=== PATIENT | female | born 1995 | race Caucasian/White ===

== ENCOUNTER → 2023-07-30 | Outpatient (CLI) | payer OTHER, SELFPAY ==
[2023-07-30 17:49] LABS: hCG Titer Quant., Serum 2485 mIU/mL (1-3)
== END | disposition home or self-care (01) ==
LOC: LAB 16:53
PROVIDERS: PCP Nurse Practitioner Family; Referring Provider Registered Nurse; Visit Provider Registered Nurse
DX: O26.859 Spotting complicating pregnancy, unspecified trimester (principal); Z3A.00 Weeks of gestation of pregnancy not specified
CPT/HCPCS: 36415; 84702; 86850; 86900; 86901

== ENCOUNTER → 2023-08-01 | Outpatient (CLI) | payer OTHER, SELFPAY ==
[2023-08-01 18:32] LABS: hCG Titer Quant., Serum 3249 mIU/mL (1-3)
== END | disposition home or self-care (01) ==
LOC: LAB 16:53
PROVIDERS: PCP Nurse Practitioner Family; Referring Provider Registered Nurse; Visit Provider Registered Nurse
DX: O26.859 Spotting complicating pregnancy, unspecified trimester (principal); Z3A.00 Weeks of gestation of pregnancy not specified
CPT/HCPCS: 36415; 84702

== ENCOUNTER → 2023-08-02 | Outpatient (CLI) | payer OTHER, SELFPAY ==
--- NOTE | 2023-08-02 12:16 | US_ITS ---
STUDY: FIRST TRIMESTER OBSTETRICAL ULTRASOUND REASON FOR EXAM: Female, 27 years old pelvic pain LMP: June 18, 2023. TECHNIQUE: Transvaginal TECHNICAL QUALITY: Adequate. PRIOR ULTRASOUND: None. FINDINGS: There is visualization of a single gestational sac in the left lateral aspect of the superior endometrium in the intrauterine position. The mean sac diameter (MSD) measures 6 mm, indicating an estimated gestational age (EGA) of 5 weeks, 2 days. The gestational sac shape is within normal limits. There is a visualized yolk sac. The yolk sac measures 3 mm. The placenta is non-visualized. There is no demonstrated embryo ( pole). The estimated gestation age (EGA) by LMP is 6 weeks, 3 days. The estimated date of delivery (RONNIE) by LMP is March 24, 2024. The estimated gestation age (EGA) by US is 5 weeks, 2 days. The estimated date of delivery (RONNIE) by US is April 01, 2024. The uterus measures 8.5 cm x 5.4 cm x 4.1 cm. There is no demonstrated uterine fibroid. The cervix is closed. The right ovary measures 3.6 cm x 3.2 cm x 2.9 cm.. A corpus luteum cyst is seen measuring 1.57 x 1.77 x 1.6 cm. There is no visualized right adnexal mass or complex lesion. The left ovary was not visualized. There is no fluid in the cul de sac. US/Transvaginal w/Preg US IMPRESSION: Intrauterine gestational sac corresponding to 5 weeks and 2 days. No pole is seen at this time. Sonographic follow-up as well as serial beta hCG follow-up recommended. Small right corpus luteum cyst. Electronically Signed: Rip Mireles MD at 14:00 EST ,
== END | disposition home or self-care (01) ==
LOC: US 12:15
PROVIDERS: PCP Nurse Practitioner Family; Referring Provider Registered Nurse; Visit Provider Registered Nurse
DX: O26.859 Spotting complicating pregnancy, unspecified trimester (principal); R10.2 Pelvic and perineal pain; Z3A.00 Weeks of gestation of pregnancy not specified
CPT/HCPCS: 76817

== ENCOUNTER → 2023-08-03 | Outpatient (CLI) | payer OTHER, SELFPAY ==
[2023-08-03 17:52] LABS: hCG Titer Quant., Serum 5000 mIU/mL (1-3)
== END | disposition home or self-care (01) ==
LOC: LAB 15:33
PROVIDERS: PCP Nurse Practitioner Family; Referring Provider Registered Nurse; Visit Provider Registered Nurse
DX: O26.859 Spotting complicating pregnancy, unspecified trimester (principal); Z3A.00 Weeks of gestation of pregnancy not specified
CPT/HCPCS: 36415; 84702; 86850; 86900; 86901

== ENCOUNTER 2023-08-05 15:28 | Outpatient (CLI) | payer OTHER, SELFPAY ==
[2023-08-05 16:48] LABS: hCG Titer Quant., Serum 7641 mIU/mL (1-3)
== END 2023-08-05 23:59 | disposition home or self-care (01) ==
LOC: LAB 15:30
PROVIDERS: PCP Nurse Practitioner Family; Visit Provider Registered Nurse
DX: O26.859 Spotting complicating pregnancy, unspecified trimester (principal); Z3A.00 Weeks of gestation of pregnancy not specified
CPT/HCPCS: 36415; 84702

== ENCOUNTER → 2023-08-15 | Outpatient (CLI) | payer OTHER, SELFPAY ==
[2023-08-18 06:08] LABS: Chlamydia By Nucleic Acid AMP Negative (Negative); Gonococcus By Nucleic Acid AMP Negative (Negative)
== END | disposition home or self-care (01) ==
LOC: LABSPEC 15:55
PROVIDERS: PCP Nurse Practitioner Family; Referring Provider Registered Nurse; Visit Provider Registered Nurse
DX: Z34.90 Encounter for supervision of normal pregnancy, unspecified, unspecified trimester (principal)
CPT/HCPCS: 87086; 87088; 87491; 87591

== ENCOUNTER → 2023-09-04 | Outpatient (CLI) | payer OTHER, SELFPAY ==
--- OUTSIDE RECORDS SUMMARY | 2023-09-04 18:11 | XMS RPT_ITS | CCD ---
Author Name Unknown Address [id number] [place] [address] Organization [facility] Care Team Providers Care Plastics Engineer Name Role Phone Jeanna Pang [facility]ending [facility] Unavailab Jeanna Rodriguez Admitting Unavailable Missael Gonzales Attending Unavailable [facility] January Primary Care Unavailab Missael Whalen Admitting Unavailable Missael Gonzales Attending Unavailable [facility] January [facility] Unavailab Missael Whalen Admitting Unavailable [facility] January [facility] Care Unavailab le [facility] January Admitting Unavailab josey [facility] Shari Primary Care Provider [phone] Seb Wild Unavailable Unavailable Jeanna Page Unavailable Unavailable [place] Seb Unavailable Unavailable Herman Shaffer Unavailable Unavailable Lawrence Cunha Unavailable Unavailable Seb Wild Unavailable Unavailable [facility] Provider BRETT BURGOS JR. Attending Unavailable [facility] Primary Care Unavailab BRETT Askew JR. Attending Unavailable [facility] Primary Care Unavailab Zach Esquivel MD Unavailable Unavailable Primary Care Provider Unavailabl e Junito [facility] Primary Care Provider Beverley Phillip K Unavailable Beverley Phillip Unavailable Unavailable Yoav, Makayla Unavailable Unavailable Caleb Hoff Unavailable Unavailable [place] ENGRAVING PLATE MAKER.SEASONING SPRAYER, Seb Primary Care Provider JENNIFER PRYOR Attending Unavailable HARPSTER, SEB Primary Care Unavailable Phillip ENGRAVING PLATE MAKER-SEASONING SPRAYER, Beverley K Unavailable Patrick ENGRAVING PLATE MAKER-SEASONING SPRAYER, Lexie D Primary Care Provider [phone] Patrick, Ms. Lexie Gabby Primary Care Unavailab le Patrick, Ms. Lexie Gabby Attending Unavailab le Patrick, Ms. Lexie Gabby Referring Unavailab le Phillip, Ms. Beverley Gómez Primary Care Unavailable Yoav, Makayla Attending Unavailable Phillip, Ms. Beverley Gómez Primary Care Unavailable Yoav, Makayla Attending Unavailable Patrick, Ms. Lexie Gabby Primary Care Unavailab le Nguyen, Ms. Lexie Gabby Attending Unavailab le Nguyen, Ms. Lexie Gabby Referring Unavailab le Chris, Dr. Barrett Olson Attending Unavaila ble [place], Ms. Seb Shari Primary Care Unava ilable Chris, Dr. Barrett Olson Attending Unavaila ble [place], Ms. Seb Shari Primary Care Unava ilable Luis Eduardo, Dr. Caleb Lemos Attending Unavail able Phillip, Ms. Beverley Vidaly Primary Care Unavailable Luis Eduardo, Dr. Caleb Lemos Attending Unavail able Kenji, Ms. Beverley Dalia Primary Care Unavailable Kenji, Ms. Beverley Dalia Primary Care Unavailable Luis Eduardo, Dr. Caleb Lemos Attending Unavail able Kenji, Ms. Beverley Dalia Primary Care Unavailable Luis Eduardo, Dr. Caleb Lemos Attending Unavail able Kenji, Ms. Beverley Dalia Primary Care Unavailable Dr. Caleb Hoff Attending Unavail able Kenji, Ms. Beverley Dalia Primary Care Unavailable Dr. Caleb Hoff Attending Unavail able Kenji, Ms. Beverley Dalia Primary Care Unavailable Luis Eduardo, Dr. Caleb Lemos Attending Unavail able Kenji, Ms. Beverley Dalia Primary Care Unavailable Luis Eduardo, Dr. Caleb Lemos Attending Unavail able Chris, Dr. Barrett Olson Attending Unavaila ble [place], Ms. Seb Shari Primary Care Unava ilable Phillip, Ms. Beverley Dalia Primary Care Unavailable Luis Eduardo, Dr. Caleb Lemos Attending Unavail able Chris, Dr. Barrett Olson Attending Unavaila ble [place], Ms. Seb Shari Primary Care Unava ilable Luis Eduardo, Dr. Caleb Lemos Attending Unavail able Phillip, Ms. Beverley Dalia Primary Care Unavailable Luis Eduardo, Dr. Caleb Lemos Attending Unavail able Phillip, Ms. Beverley Dalia Primary Care Unavailable Luis Eduardo, Dr. Caleb Lemos Attending Unavail able Phillip, Ms. Beverley Dalia Primary Care Unavailable Luis Eduardo, Dr. Caleb Lemos Attending Unavail able Phillip, Ms. Beverley Dalia Primary Care Unavailable Phillip, Ms. Beverley Dalia Primary Care Unavailable Luis Eduardo, Dr. Caleb Lemos Attending Unavail able Chris, Dr. Barrett Olson Attending Unavaila ble [place], Ms. Seb Shari Primary Care Unava ilable Patrick, Ms. Lexie Gabby Primary Care Unavailab josey Purcell, Dr. Paramjit Reynoso Attending Unavail able Phillip, Ms. Beverley Dalia Primary Care Unavailable Eric, Ms. Jennifer Moreau Attending Unava ilable Phillip, Ms. Beverley Dalia Primary Care Unavailable Luis Eduardo, Dr. Caleb Lemos Attending Unavail able Phillip, Ms. Beverley Dalia Primary Care Unavailable Luis Eduardo, Dr. Caleb Lemos Attending Unavail able Luis Eduardo, Dr. Caleb Lemos Attending Unavail able Phillip, Ms. Beverley Dalia Primary Care Unavailable Phillip, Ms. Beverley Dalia Primary Care Unavailable Luis Eduardo, Dr. Caleb Lemos Attending Unavail able Phillip, Ms. Beverley Dalia Primary Care Unavailable Luis Eduardo, Dr. Caleb Lemos Attending Unavail able Phillip, Ms. Beverley Dalia Primary Care Unavailable Luis Eduardo, Dr. Caleb Lemos Attending Unavail able Luis Eduardo, Dr. Caleb Lemos Attending Unavail able Phillip, Ms. Beverley Dalia Primary Care Unavailable Chris, Dr. Barrett Olson Attending Unavaila ble Phillip, Ms. Beverley Dalia Primary Care Unavailable Phillip, Ms. Beverley Dalia Primary Care Unavailable Luis Eduardo, Dr. Caleb Lemos Attending Unavail able Kenji, Ms. Beverley Dalia Primary Care Unavailable Luis Eduardo, Dr. Caleb Lemos Attending Unavail able Luis Eduardo, Dr. Caleb Lemos Attending Unavail able Phillip, Ms. Beverley Dalia Primary Care Unavailable Chris, Dr. Barrett Olson Attending Unavaila ble [place], Ms. Seb Shari Primary Care Unava ilable Patrick, Ms. Lexie Gabby Primary Care Unavailab le Patrick, Ms. Lexie Gabby Referring Unavailab josey Patrick, Ms. Lexie Pierre Attending Unavailab le Lexie Nguyen Unavailable Lexie Simons Unavailable LEXIE NGUYEN Attending Unavailable PATRICK, LEXIE Patrick Primary Care Unavailable NGUYEN, LEXIE D Attending Unavailable PATRICK LEXIE Patrick Primary Care Unavailable LEXIE NGUYEN Attending Unavailable LEXIE NGUYEN Primary Care Unavailable LEXIE NGUYEN Attending Unavailable LEXIE NGUYEN Primary Care Unavailable LEXIE NGUYEN Attending Unavailable PATRICK LEXIE Patrick Primary Care Unavailable NGUYEN, LEXIE D Primary Care Unavailable NGUYEN, LEXIE D Primary Care Unavailable NGUYEN, LEXIE D Primary Care Unavailable NGUYEN, LEXIE D Primary Care Unavailable LEXIE NGUYEN Primary Care Unavailable Allergies Allergy Classification Reported Allergen(s) Allergy Type Date of Onset Reaction(s) Facility (1 source) PLANT POLLENS; Translations: [PLANT POLLENS] allergy to substance hay fever [facility] Work Phone: Medications Current Medications Medication Drug Class(es) Dates Sig (Normalized) Sig (Original) [id number] 200 actuat albuterol 0.09 mg/actuat metered dose inhaler (20 sources) beta2-Adrenergic Agonist Start: 05-07-2021 End: 05-07-2022 albuterol 90 mcg/actuation inhaler as needed . 0 05/07/2021 05/07/2022 Active Completed/Discontinued Medications Medication Drug Class(es) Dates Sig (Normalized) Sig (Original) acetaminophen 325 mg / oxyCODONE hydrochloride 5 mg oral tablet (6 sources) Opioid Agonist Start: 03-03-2021 take 1 tablet by mouth every six hours as needed for pain oxyCODONE-Acetami nophen 5-325 MG Oral Tablet TAKE 1 TABLET EVERY 6 HOURS NEEDED FOR PAIN. Quantity: 24 Refills: 0 Ordered: 03-Mar-2021 Tiffanie Cope Start : 03-Mar-2021 Active Problems Active Problems Problem Classification Problem Date Documented Da te Episodic/Chronic Asthma (8 sources) Mild intermittent asthma; Translations: [Mild intermittent asthma, uncomplicated] Onset: 09-22-2022 01-10-2023 Chronic Complications of surgical procedures or medical care (20 sources) Wound inflammation; Translations: [Other postoperative infection] Episodic Joint disorders and dislocations; trauma-related (20 sources) Snapping scapula; Translations: [Other disorders of bone and cartilage] Onset: 06-08-2021 06-08-2021 Chronic Mycoses (4 sources) Candidiasis of mouth; Translations: [Candidiasis of mouth] Episodic Noninfectious gastroenteritis (5 sources) Acute gastroenteritis; Translations: [Noninfective gastroenteritis and colitis, unspecified] Onset: 06-05-2023 06-05-2023 Episodic Other bone disease and musculoskeletal deformities (4 sources) Snapping scapula; 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] Episodic Other bone disease and musculoskeletal deformities (2 sources) Other specified disorders of bone, shoulder; Translations: [Other specified disorders of bone, shoulder] Onset: 07-13-2023 Episodic Other connective tissue disease (20 sources) Tendinitis of right rotator cuff; Translations: [Disorders of bursae and tendons in shoulder region, unspecified] Episodic Other gastrointestinal disorders (4 sources) Diarrhea; Translations: [Diarrhea, unspecified] Onset: 06-05-2023 06-05-2023 Episodic Other gastrointestinal disorders (4 sources) Diarrhea, unspecified; Translations: [Diarrhea, unspecified] Onset: 06-05-2023 Episodic Other lower respiratory disease (20 sources) Chronic cough; Translations: [Cough] Episodic Other lower respiratory disease (4 sources) Cough; Translations: [Cough] 09-22-2022 Episodic Past or Other Problems Problem Classification Problem Date Documented Date Episodic/Chronic Administrative/social admission (20 sources) Follow-up status; Translations: [Other specified counseling] Onset: 01-10-2023 Resolved: 01-17-2023 01-17-2023 Episodic Anxiety disorders (20 sources) Moderate anxiety; Translations: [Anxiety state, unspecified] Onset: 01-09-2023 Resolved: 01-10-2023 01-10-2023 Chronic Mood disorders (20 sources) Mild depression; Translations: [Depressive disorder, not elsewhere classified] Onset: 01-09-2023 Resolved: 01-10-2023 01-10-2023 Chronic Nausea and vomiting (1 source) Nausea; Translations: [Nausea] Onset: 09-22-2022 Episodic Other aftercare (2 sources) Encounter for removal of sutures; Translations: [Encounter for removal of sutures] Onset: 09-28-2022 Episodic Other connective tissue disease (20 sources) Scapulothoracic bursitis of right shoulder; Translations: [Disorders of bursae and tendons in shoulder region, unspecified] Onset: 01-09-2023 01-09-2023 Episodic Other connective tissue disease (3 sources) Tendinitis of right rotator cuff; Translations: [Rotator cuff tendonitis, right] Other connective tissue disease (2 sources) Scapulothoracic bursitis of right shoulder; Translations: [Scapulothoracic bursitis of right shoulder] Other lower respiratory disease (20 sources) Nodule of lung; Translations: [Solitary pulmonary nodule] Onset: 01-09-2023 02-21-2023 Episodic Results Test Name Value Interpretation Reference Range Facil ity Vital Signs Date Time Vital Sign Value Performing Clinician Facility 06-07-2023 09:09-0400 Body height 154.9 cm German Olivares APRNeHi Car Rental Work Phone: [facility] 06-07-2023 09:09-0400 Body mass index (BMI) [Ratio] 27.44 kg/m2 German Olivares APRN-SEASONING SPRAYER Work Phone: [facility] 06-07-2023 09:09-0400 Body temperature 98.2 [degF] German Olivares APRN-SEASONING SPRAYER Work Phone: [facility] 06-07-2023 09:09-0400 Body weight 65.86 kg German Olivares APRN-SEASONING SPRAYER Work Phone: [facility] 06-07-2023 09:09-0400 Diastolic blood pressure 75 mm[Hg] German Olivares APRN-SEASONING SPRAYER Work Phone: [facility] 06-07-2023 09:09-0400 Heart rate 96 /min German Olivares APRN-SEASONING SPRAYER Work Phone: [facility] 06-07-2023 09:09-0400 Respiratory rate 16 /min German Olivares APRN-SEASONING SPRAYER Work Phone: [facility] 06-07-2023 09:09-0400 SaO2% (BldA) [Mass fraction] 98 % German Olivares ENGRAVING PLATE MAKER-SEASONING SPRAYER Work Phone: [facility] 06-07-2023 09:09-0400 Systolic blood pressure 107 mm[Hg] German Olivares ENGRAVING PLATE MAKER-SEASONING SPRAYER Work Phone: [facility] 02-21-2023 10:23-0400 Body height 154.9 cm Lexie Nguyen ENGRAVING PLATE MAKER-SEASONING SPRAYER Work Phone: [facility] 02-21-2023 10:23-0400 Body mass index (BMI) [Ratio] 28.34 kg/m2 Lexie Nguyen ENGRAVING PLATE MAKER-SEASONING SPRAYER Work Phone: [facility] 02-21-2023 10:23-0400 Body weight 68.04 kg Lexie Nguyen ENGRAVING PLATE MAKER-SEASONING SPRAYER Work Phone: [facility] 02-21-2023 10:23-0400 Diastolic blood pressure 74 mm[Hg] Lexie Nguyen ENGRAVING PLATE MAKER-SEASONING SPRAYER Work Phone: [facility] 02-21-2023 10:23-0400 Heart rate 70 /min Lexie Nguyen ENGRAVING PLATE MAKER-SEASONING SPRAYER Work Phone: [facility] 02-21-2023 10:23-0400 Systolic blood pressure 106 mm[Hg] Lexie Nguyen ENGRAVING PLATE MAKER-SEASONING SPRAYER Work Phone: [facility] 06-16-2022 08:06-0400 Body height 154.9 cm Jennifer Pryor MD Work Phone: [facility] 06-16-2022 08:06-0400 Body weight 113.67 kg Jennifer Pryor MD Work Phone: [facility] 06-16-2022 08:06-0400 Diastolic blood pressure 74 mm[Hg] Jennifer Pryor MD Work Phone: [facility] 06-16-2022 08:06-0400 Heart rate 85 /min Jennifer Pryor MD Work Phone: [facility] 06-16-2022 08:06-0400 Respiratory rate 12 /min Jennifer Pryor MD Work Phone: [facility] 06-16-2022 08:06-0400 SaO2% (BldA) [Mass fraction] 100 % Jennifer Pryor MD Work Phone: [facility] 06-16-2022 08:06-0400 Systolic blood pressure 106 mm[Hg] Jennifer Pryor MD Work Phone: [facility] 03-03-2022 13:44-0400 Body height 154.94 cm Seb Wild Work Phone: [facility] 205 DO Work Phone: 03-03-2022 13:44-0400 Body mass index (BMI) [Ratio] 28.91 kg/m2 Seb Wild Work Phone: [facility] 205 DO Work Phone: 03-03-2022 13:44-0400 Body surface area Derived from formula 1.69 m2 Seb Wild Work Phone: [facility] 205 DO Work Phone: 03-03-2022 13:44-0400 Body weight 69.4 kg Seb Wild Work Phone: [facility] 205 DO Work Phone: 03-03-2022 13:44-0400 Diastolic blood pressure 68 mm[Hg] Seb Wild Work Phone: [facility] 205 DO Work Phone: 03-03-2022 13:44-0400 Heart rate 80 /min Seb Wild Work Phone: [facility] 205 DO Work Phone: 03-03-2022 13:44-0400 Systolic blood pressure 102 mm[Hg] Seb Wild Work Phone: [facility] 205 DO Work Phone: 01-25-2022 15:29-0400 Body height 154.94 cm Seb Wild Work Phone: [facility] Work Phone: 01-25-2022 15:29-0400 Body mass index (BMI) [Ratio] 28.24 kg/m2 Seb Wild Work Phone: [facility] Work Phone: 01-25-2022 15:29-0400 Body surface area Derived from formula 1.67 m2 Seb Wild Work Phone: [facility] Work Phone: 01-25-2022 15:29-0400 Body weight 67.79 kg Seb Wild Work Phone: [facility] Work Phone: 01-25-2022 15:29-0400 Diastolic blood pressure 66 mm[Hg] Seb Wild Work Phone: [facility] Work Phone: 01-25-2022 15:29-0400 Heart rate 72 /min Seb Wild Work Phone: [facility] Work Phone: 01-25-2022 15:29-0400 SaO2% (BldA) [Mass fraction] 100 % Seb Wild Work Phone: [facility] Work Phone: 01-25-2022 15:29-0400 Systolic blood pressure 90 mm[Hg] Seb Wild Work Phone: [facility] Work Phone: 06-27-2021 15:37-0400 Body height 154.94 cm Seb Wild Work Phone: [facility] Work Phone: 06-27-2021 15:37-0400 Body mass index (BMI) [Ratio] 29.31 kg/m2 Seb Wild Work Phone: [facility] Work Phone: 06-27-2021 15:37-0400 Body surface area Derived from formula 1.7 m2 Seb Wild Work Phone: [facility] Work Phone: 06-27-2021 15:37-0400 Body temperature 98.4 [degF] Seb Wild Work Phone: [facility] Work Phone: 06-27-2021 15:37-0400 Body weight 70.37 kg Seb Wild Work Phone: [facility] Work Phone: 06-27-2021 15:37-0400 Diastolic blood pressure 60 mm[Hg] Seb Wild Work Phone: [facility] Work Phone: 06-27-2021 15:37-0400 Heart rate 77 /min Seb Wild Work Phone: [facility] Work Phone: 06-27-2021 15:37-0400 SaO2% (BldA) [Mass fraction] 99 % Seb Wild Work Phone: [facility] Work Phone: 06-27-2021 15:37-0400 Systolic blood pressure 108 mm[Hg] Seb Ericka Wild Work Phone: [facility] Work Phone: 05-20-2021 09:46-0400 Body temperature 97.2 [degF] Brett Leo Jr., DPM Work Phone: [facility] 05-20-2021 09:46-0400 Diastolic blood pressure 63 mm[Hg] Brett Leo Jr., DPM Work Phone: [facility] 05-20-2021 09:46-0400 Heart rate 83 /min Brett Leo Jr., DPM Work Phone: [facility] 05-20-2021 09:46-0400 Systolic blood pressure 100 mm[Hg] Brett Leo Jr., DPM Work Phone: [facility] 05-18-2021 15:26-0400 Body temperature 98.1 [degF] Brett Leo Jr., DPM Work Phone: [facility] 05-18-2021 15:26-0400 Diastolic blood pressure 74 mm[Hg] Brett Leo Jr., DPM Work Phone: [facility] 05-18-2021 15:26-0400 Heart rate 93 /min Brett Leo Jr., DPM Work Phone: [facility] 05-18-2021 15:26-0400 Systolic blood pressure 122 mm[Hg] Brett Leo Jr., DPM Work Phone: [facility] 04-21-2021 16:08-0400 Body height 154.94 cm Seb Wild Work Phone: [facility] Work Phone: 04-21-2021 16:08-0400 Body mass index (BMI) [Ratio] 28.81 kg/m2 Seb Ericka [place] Work Phone: [facility] Work Phone: 04-21-2021 16:08-0400 Body surface area Derived from formula 1.68 m2 Seb Barnett [place] Work Phone: [facility] Work Phone: 04-21-2021 16:08-0400 Body temperature 97.6 [degF] Seb Ericka [place] Work Phone: [facility] Work Phone: 04-21-2021 16:08-0400 Body weight 69.17 kg Seb Ericka [place] Work Phone: [facility] Work Phone: 04-21-2021 16:08-0400 Diastolic blood pressure 60 mm[Hg] Seb J [place] Work Phone: [facility] Work Phone: 04-21-2021 16:08-0400 Heart rate 62 /min Seb J [place] Work Phone: [facility] Work Phone: 04-21-2021 16:08-0400 SaO2% (BldA) [Mass fraction] 98 % Seb J [place] Work Phone: [facility] Work Phone: 04-21-2021 16:08-0400 Systolic blood pressure 98 mm[Hg] Seb Barnett [place] Work Phone: [facility] Work Phone: 03-31-2021 12:42-0400 Body height 154.94 cm Seb Wild Work Phone: [facility] Work Phone: 03-31-2021 12:42-0400 Body mass index (BMI) [Ratio] 28.64 kg/m2 eSb Wild Work Phone: [facility] Work Phone: 03-31-2021 12:42-0400 Body surface area Derived from formula 1.68 m2 Seb Wild Work Phone: [facility] Work Phone: 03-31-2021 12:42-0400 Body temperature 97.7 [degF] Seb Wild Work Phone: [facility] Work Phone: 03-31-2021 12:42-0400 Body weight 68.75 kg Seb Wild Work Phone: [facility] Work Phone: 03-31-2021 12:42-0400 Diastolic blood pressure 76 mm[Hg] Seb Wild Work Phone: [facility] Work Phone: 03-31-2021 12:42-0400 Heart rate 80 /min Seb Wild Work Phone: [facility] Work Phone: 03-31-2021 12:42-0400 Systolic blood pressure 132 mm[Hg] Seb Ricciter Work Phone: [facility] Work Phone: 02-23-2020 17:23-0400 BMI (Body Mass Index) 25.89 kg/m2 Herman Zumbar MP-Pain Management-Samarit an Work Phone: 02-23-2020 17:23-0400 Body Temperature 98.3 [degF] Herman Shaffer MP-[facility] Management[facility] Work Phone: 02-23-2020 17:23-0400 Body weight 62.14 kg Herman Shaffer MP[facility] Management[facility] Work Phone: 02-23-2020 17:23-0400 BP Diastolic 77 mm[Hg] Herman Donovanumbar MP-[facility] Management[facility] Work Phone: 02-23-2020 17:23-0400 BP Systolic 117 mm[Hg] Herman Donovanumbar [facility] Work Phone: 02-23-2020 17:23-0400 BSA (Body Surface Area) 1.61 m2 Herman Shaffer MP[facility] Work Phone: 02-23-2020 17:23-0400 Height 154.94 cm Herman Shaffer MP[facility] Work Phone: 02-23-2020 17:23-0400 Pulse (Heart Rate) 60 /min Herman Penaar MP[facility] Work Phone: 02-23-2020 17:23-0400 Respiratory Rate 12 /min Herman Penaar MP[facility] Work Phone: NEGATED: Highlighted [id number] 15:37-0500 Body height 154.94 cm Gina Pavick AT [facility] Work Phone: NEGATED: Highlighted [id number] 15:37-0500 Body height 155 cm Gina Pavick AT [facility] Work Phone: NEGATED: Highlighted [id number] 15:37-0500 Body mass index (BMI) [Ratio] 28.82 kg/m2 Gina Pavick AT [facility] Work Phone: NEGATED: Highlighted [id number] 15:37-0500 Body temperature 97.2 [degF] Gina Pavick AT [facility] Work Phone: NEGATED: Highlighted [id number] 15:37-0500 Body temperature 97.16 [degF] Gina Pavick AT [facility] Work Phone: NEGATED: Highlighted [id number] 15:37-0500 Body weight 68.95 kg Gina Pavick AT [facility] Work Phone: NEGATED: Highlighted [id number] 15:37-0500 Body weight 69 kg Gina Pavick AT [facility] Work Phone: Encounters Encounter Date Encounter Type Care Provider Facility Start: 07-13-2023 End: 07-14-2023 ambulatory LEXIE Nguyen [facility] Start: 06-07-2023 End: 06-08-2023 ambulatory LEXIE Nguyen [facility] Start: 06-07-2023 End: 06-07-2023 Office outpatient visit 15 minutes German Olivares APRN-SEASONING SPRAYER Work Phone: [facility] Procedures Date Procedure Procedure Detail Performing Clinician Start: 07-13-2023 REANNA WITHOUT REFLEX AYESHA LEXIE NGUYEN Start: 07-13-2023 Basic metabolic 2000 panel - Serum or Plasma LEXIE NGUYEN Start: 07-13-2023 C-reactive protein LEXIE NGUYEN Start: 07-13-2023 CBC W Auto Different ial panel - Blood LEXIE NGUYEN Start: 07-13-2023 RHEUMATOID FACTOR LEXIE KEENAN Start: 07-13-2023 SEDIMENTATION RATE, AUTOMATED LEXIE NGUYEN Start: 06-05-2023 C. DIFFICILE, PCR LEXIE KEENAN Start: 06-05-2023 CRYPTOSPORIDIUM ANTI GEN, STOOL LEXIE NGUYEN Start: 06-05-2023 GIARDIA ANTIGEN LEXIE WRIGHT Start: 06-05-2023 OVA AND PARASITE EXAMINATION LEXIE NGUYEN Start: 06-05-2023 OVA/PARA + GIARDIA/CRYPTOSPORIDIUM ANTIGEN LEXIE NGUYEN Start: 06-05-2023 STOOL PATHOGEN PANEL, PCR LEXIE NGUYEN Start: 03-09-2023 Follow-up visit Follow-up LEXIE KEENAN Start: 02-22-2023 Thyrotropin [Units/v olume] in Serum or Plasma LEXIE NGUYEN Start: 02-22-2023 THYROXINE, FREE LEXIE WRIGHT Start: 02-22-2023 TRIIODOTHYRONINE, FREE LEXIE NGUYEN Start: 01-11-2023 CBC W Auto Different ial panel - Blood LEXIE NGUYEN Start: 01-11-2023 Comprehensive metabo lic 2000 panel - Serum or Plasma LEXIE HILARIOLEY Start: 01-11-2023 Hemoglobin A1c/Hemoglobin.total in Blood LEXIE HILARIOLEY Start: 01-11-2023 Lipid panel LEXIE NGUYEN Start: 01-11-2023 TSH WITH REFLEX TO F REE T4 IF ABNORMAL LEXIE HILARIOLEY Start: 01-11-2023 Lipid 1996 panel - S ca or Plasma Lexie Hilarioley ENGRAVING PLATE MAKER-[employer]ING [employer]ER Work Phone: Start: 03-22-2022 Microscopic observat ion [Identifier] in Cervix by Cyto stain Lexie Nguyen ENGRA[employer]ING [employer]ATE MAK[employer] Work Phone: Start: 09-28-2021 End: 09-28-2021 BP scrn no perf at interval Zach coburn MD Work Phone: Start: 09-28-2021 End: 09-28-2021 Calc BMI abv up alexis f/u Zach anderson MD Work Phone: Start: 09-28-2021 End: 09-28-2021 Current tobacco non-user cad cap copd pv dm Zach Cotto MD Work Phone: Start: 09-28-2021 End: 09-28-2021 Docrev cur meds by elig clin Zach dallas MD Work Phone: Start: 09-28-2021 End: 09-28-2021 Pain neg no plan Zach Nguyen Work Phone: Start: 09-28-2021 End: 09-28-2021 Patient encounter procedure Zach coburn MD Work Phone: Start: 09-28-2021 End: 09-28-2021 Radex fingr minimum 2 views Zach coburn MD Work Phone: Start: 05-20-2021 SKIN PREP Brett walker DPM Work Phone: Colonoscopy Seb cesar Plan of Treatment Date Care Activity Detail Author Start: 2044 Zoster Vaccines (1 o f 2) Zoster Vaccines (1 of 2) [facility] Start: 01-12-2028 Lipid panel Lipid Panel [facility] Start: 03-22-2025 Screening for malign ant neoplasm of cervix [facility] Start: 02-22-2024 End: 02-22-2024 Thyrotropin [Units/volume] in Serum or Plasma Thyroid Stimulating Hormone Lab Routine Abnormal TSH Expected: 02/22/2024 (Approximate), Expires: 02/22/2024 [facility] Work Phone: Immunizations Immunization Date Immunization Notes Care Provider Bhavna thompson 06-17-2021 Pfizer-BioNTech COVI D-19 Vacc 30 MCG/0.3ML Intramuscular Suspension Seb Wild Work Phone: [facility] Work Phone: Payers Date Payer Category Payer Unknown [employer] PPO xxxxxxxxxxxx 2019-Present xxxxxxxxxxxx [id number] 2019 Unknown [employer] PPO [id number] 2019-Present [phone] [address] [place] [address] [id number] .[id number] 2019 Unknown [id number] 2018 Unknown 1994 Unknown [id number] 2.16.840.1.291562.3.579.2.717 1994 Unknown [id number] 2.16.840.1.473806.3.579.2.717 1994 Unknown [id number] 2.16.840.1.969686.3.579.2.717 1994 Unknown [id number] 2.16.840.1.929797.3.579.2.717 1994 Unknown [id number] 2.16.840.1.680038.3.579.2.903 1994 Unknown [id number] 2.16.840.1.096717.3.579.2.903 1994 Unknown [id number] 2.16.840.1.752226.3.579.2.106 9 1994 Unknown [id number] 2.16.840.1.906859.3.579.2.106 9 1994 Unknown [id number] 2.16.840.1.246285.3.579.2.106 9 1994 Unknown [id number] 2.16.840.1.703899.3.579.2.106 9 1994 Unknown [id number] 2.16.840.1.486083.3.579.2.106 9 1994 Unknown [id number] 2.16.840.1.352519.3.579.2.106 9 1994 Unknown [id number] 2.16.840.1.107977.3.579.2.106 9 1994 Unknown [id number] 2.16.840.1.805025.3.579.2.106 9 1994 Unknown [id number] 2.16.840.1.736950.3.579.2.106 9 1994 Unknown [id number] 2.16.840.1.392638.3.579.2.106 9 1994 Unknown [id number] 2.16.840.1.189322.3.579.2.106 9 1994 Unknown [id number] 2.16.840.1.191151.3.579.2.106 9 1994 Unknown [id number] 2.16.840.1.711438.3.579.2.106 9 1994 Unknown [id number] 2.16.840.1.126960.3.579.2.106 9 1994 Unknown [id number] 2.16.840.1.177043.3.579.2.106 9 1994 Unknown [id number] 2.16.840.1.642127.3.579.2.106 9 1994 Unknown [id number] 2.16.840.1.364894.3.579.2.106 9 1994 Unknown [id number] 2.16.840.1.078659.3.579.2.106 9 1994 Unknown [id number] 2.16.840.1.754121.3.579.2.106 9 1994 Unknown [id number] 2.16.840.1.611915.3.579.2.106 9 1994 Unknown [id number] 2.16.840.1.490644.3.579.2.106 9 1994 Unknown [id number] 2.16.840.1.194566.3.579.2.106 9 1994 Unknown [id number] 2.16.840.1.128804.3.579.2.106 9 1994 Unknown [id number] 2.16.840.1.779290.3.579.2.106 9 1994 Unknown [id number] 2.16.840.1.950576.3.579.2.106 9 1994 Unknown [id number] 2.16.840.1.505869.3.579.2.106 9 1994 Unknown [id number] 2.16.840.1.271203.3.579.2.106 9 1994 Unknown [id number] 2.16.840.1.745699.3.579.2.106 9 1994 Unknown [id number] 2.16.840.1.978724.3.579.2.106 9 1994 Unknown [id number] 2.16.840.1.442405.3.579.2.106 9 1994 Unknown [id number] 2.16.840.1.826053.3.579.2.106 9 1994 Unknown [id number] 2.16.840.1.284714.3.579.2.106 9 1994 Unknown [id number] 2.16.840.1.882566.3.579.2.106 9 1994 Unknown [id number] 2.16.840.1.369269.3.579.2.106 9 1994 Unknown [id number] 2.16.840.1.462644.3.579.2.106 9 1994 Unknown [id number] 2.16.840.1.164822.3.579.2.106 9 1994 Unknown [id number] 2.16.840.1.649500.3.579.2.106 9 1994 Unknown [id number] 2.16.840.1.945299.3.579.2.106 9 1994 Unknown [id number] 2.16.840.1.045966.3.579.2.124 4 1994 Unknown [id number] 2.16.840.1.448283.3.579.2.124 4 1994 Unknown [id number] 2.16.840.1.939169.3.579.2.124 4 1994 Unknown [id number] 2.16.840.1.938167.3.579.2.124 4 1994 Unknown [id number] 2.16.840.1.292397.3.579.2.124 4 1994 Unknown [id number] 2.16.840.1.074303.3.579.2.124 5 1994 Unknown [id number] 2.16.840.1.480238.3.579.2.124 5 1994 Unknown [id number] 2.16.840.1.562389.3.579.2.124 5 1994 Unknown [id number] 2.16.840.1.193438.3.579.2.124 5 1994 Unknown [id number] 2.16.840.1.040487.3.579.2.124 5 Social History Date Type Detail Facility Start: 09-28-2021 End: 09-28-2021 Tobacco smoking status UTIS Unknown if ever smoked [facility] Start: 1995 Sex Assigned At Not on file [facility] Start: 02-21-2023 End: 06-05-2023 No alcohol use No alcohol use [facility] Start: 05-18-2021 End: 01-10-2023 Tobacco smoking status NHIS Never smoked tobacco [facility] Start: 05-18-2021 End: 01-10-2023 Tobacco use and exposure Smokeless tobacco non-user [facility] Start: 05-18-2021 End: 06-07-2023 Alcohol intake Lifetime non-drinker (finding) [facility] Start: 06-06-2022 End: 06-07-2023 Exposure to SARS-CoV-2 (event) Not sure [facility] Start: 02-21-2023 End: 06-05-2023 Tobacco use panel [facility] Start: 05-26-2023 End: 06-05-2023 Exposure to SARS-CoV-2 (event) Unable to assess [facility] Work Phone: NEGATED: Highlighted row - - [facility] Work Phone: NEGATED: Highlighted rowStart: 09-28-2021 End: 09-28-2021 Employment detail Employment detail [facility] Work Phone: Functional Status Date Assessment Result Facility NEGATED: Highlighted row Functional performance Functional status health issues are not documented Disease [facility] Work Phone: Mental Status Date Assessment Result Facility NEGATED: Highlighted row Cognitive function [Interpretation] Cognitive status health issues are not documented Disease [facility] Work Phone: Clinical Notes 11-03-2020 to 06-07-2023 German Olivares, [employer] - 06/07/2023 9:05 AM Alicia Nguyen, [employer] - 02/21/2023 10:20 AM EDTTelephone Encounter - Lexie Montgomery APRN.[facility] - 11/09/2022 12:15 PM EDT Note Date & Type Note Facility 06-07-2023 History of Presen t illness Narrative 27 y.o. female presents for evaluation of abdominal cramping and diarrhea that has been ongoing for the past week. States she has been exposed to Cdiff. She was tested by PCP a few days ago which was negative but symptoms persist. States 2 people at her work have been diagnosed with Cdiff. Denies fever, focal abd pain, nausea, vomiting, body aches or any other associated symptoms. No otc meds for symptoms. States PCP sent rx for Flagyl but she has not started it yet. Vitals: 06/07/23 0909 BP: 107/75 Pulse: 96 Resp: 16 Temp: 36.8 C (98.2 F) SpO2: 98% No Known Allergies Medication Documentation Review Audit Reviewed by KENZIE KRAFT (Aircraft Charter Dispatcher) on 06/07/23 at 0910 Medication Order Taking? Sig Documenting Provider Last Dose Status ergocalciferol (Vitamin D-2) 1.25 MG (26707 UT) capsule [id number] No Take 1 capsule (50,000 Units) by mouth 1 (one) time per week. Historical Provider, Not Taking Active levocetirizine (Xyzal) 5 mg tablet [id number] No Take 1 tablet (5 mg) by mouth once daily in the evening. Patient not taking: Reported on 06/07/2023 MARILOU Flowers Not Taking Active metroNIDAZOLE (Flagyl) 500 mg tablet [id number] No Take 1 tablet (500 mg) by mouth 2 times a day for 7 days. Patient not taking: Reported on 06/07/2023 MARILOU Flowers Not Taking Active Past Medical History: Diagnosis Date Allergic Asthma Past Surgical History: Procedure Laterality Date BACK SURGERY OTHER SURGICAL HISTORY 09/23/2019 Colonoscopy OTHER SURGICAL HISTORY 11/09/2020 Tonsillectomy TONSILLECTOMY WISDOM TOOTH EXTRACTION ROS See HPI Physical Exam Vitals and nursing note reviewed. Constitutional: General: She is not in acute distress. Appearance: Normal appearance. She is normal weight. She is not ill-appearing or toxic-appearing. Abdominal: General: Abdomen is flat. There is no distension. Palpations: Abdomen is soft. Tenderness: There is abdominal tenderness (generalized). There is no rebound. Comments: Hyperactive x 4 Skin: General: Skin is warm and dry. Capillary Refill: Capillary refill takes less than 2 seconds. Neurological: General: No focal deficit present. Mental Status: She is alert and oriented to person, place, and time. Psychiatric: Mood and Affect: Mood normal. Behavior: Behavior normal. Assessment/Plan/MDM Abdiel was seen today for diarrhea. Diagnoses and all orders for this visit: Diarrhea, unspecified type (Primary) - C. difficile, PCR - Stool Pathogen Panel, PCR Encouraged pt to push po fluids and rest. Will relay results when able. Patient's clinical presentation is otherwise unremarkable at this time. Patient is discharged with instructions to follow-up with primary care or seek emergency medical attention for worsening symptoms or any new concerns. German Olivares CNP [facility] [phone] documented in this encounter [facility] Work Phone: 02-21-2023 History of Presen t illness Narrative Subjective Patient ID: Abdiel Carranza is a 27 y.o. female who presents for Follow-up (DISCUSS LABS DONE AT [facility] IN [place] AND [place] RT SIDE ON NECK). HPI: Presents today for C/O RIGHT NECK SWELLING X SEVERAL MONTHS modifying factors consists of HAS CHRONIC SHOULDER AND NECK PAIN associated symptoms consist of TENDER prior treatment consists of medication DRY NEEDLING TSH LEVEL 0.63 2 WEEKS AGO. LAB DONE BY [facility]. WILL RECHECK LAB LUNG NODULE- LAST CT CHEST 02/23/22. WILL REPEAT FOR STABILITY RIGHT SHOULDER PAIN- FOLLOWING WITH ORTHO DR. PURCELL Visit Vitals BP 106/74 Pulse 70 Ht 1.549 m (5' 1 ) Wt 68 kg (150 lb) BMI 28.34 kg/m OB Status Having periods Smoking Status Never BSA 1.71 m Review of Systems Constitutional: Negative for chills, fatigue, fever and unexpected weight change. HENT: Negative for congestion, ear pain, sore throat and trouble swallowing. Eyes: Negative for photophobia, pain, redness and visual disturbance. Respiratory: Negative for apnea, cough, choking, chest tightness, shortness of breath and wheezing. Cardiovascular: Negative for chest pain, palpitations and leg swelling. Gastrointestinal: Negative for abdominal distention, abdominal pain, blood in stool, constipation, diarrhea, nausea and vomiting. Genitourinary: Negative for difficulty urinating, dysuria, flank pain, frequency, hematuria and urgency. Musculoskeletal: Positive for arthralgias. Negative for back pain, gait problem, joint swelling, myalgias and neck pain. Skin: Negative for rash and wound. Neurological: Negative for dizziness, seizures, syncope, facial asymmetry, speech difficulty, weakness, numbness and headaches. Psychiatric/Behavioral: Negative for confusion, sleep disturbance and suicidal ideas. The patient is not nervous/anxious. Objective Physical Exam Constitutional: Appearance: Normal appearance. She is normal weight. HENT: Head: Normocephalic. Eyes: Extraocular Movements: Extraocular movements intact. Conjunctiva/sclera: Conjunctivae normal. Pupils: Pupils are equal, round, and reactive to light. Cardiovascular: Rate and Rhythm: Normal rate and regular rhythm. Pulses: Normal pulses. Heart sounds: Normal heart sounds. Pulmonary: Effort: Pulmonary effort is normal. Breath sounds: Normal breath sounds. Musculoskeletal: General: Normal range of motion. Cervical back: Normal range of motion. Comments: NECK PAIN SWELLING NOTED TO RIGHT SIDE OF NECK INTO RIGHT SHOULDER Skin: General: Skin is warm and dry. Neurological: General: No focal deficit present. Mental Status: She is alert and oriented to person, place, and time. Psychiatric: Mood and Affect: Mood normal. Behavior: Behavior normal. Thought Content: Thought content normal. Judgment: Judgment normal. Assessment/Plan Problem List Items Addressed This Visit Chronic neck pain Relevant Orders XR cervical spine complete 4-5 views Nodule of right lung Relevant Orders CT chest wo IV contrast Neck swelling - Primary Relevant Orders US head neck soft tissue Abnormal TSH Relevant Orders Thyroid Stimulating Hormone Triiodothyronine, Free Thyroxine, Free I HAVE AGREED TO CALL WITH TESTING RESULTS WE DISCUSSED MOST COMMON SIDE EFFECTS OF PRESCRIBED MEDICATIONS. INDICATIONS, RISK, COMPLICATIONS, AND ALTERNATIVES OF MEDICATION/THERAPEUTICS WERE EXPLAINED AND DISCUSSED. PLEASE MONITOR CLOSELY FOR ANY UNTOWARD SIDE EFFECTS OR COMPLICATIONS OF MEDICATIONS. PATIENT IS STRONGLY ADVISED TO BE COMPLIANT WITH RECOMMENDATIONS. QUESTIONS AND CONCERNS WERE ADDRESSED. INSTRUCTED TO CALL, RETURN SOONER, OR GO TO THE ER, IF SYMPTOMS PERSIST OR WORSEN. THEY VOICED UNDERSTANDING AND DENIES FURTHER QUESTIONS AT THIS TIME. TIME CODE 1. PREPARATION FOR PATIENT'S VISIT (REVIEWING CHART, CURRENT MEDICAL RECORDS, OUTSIDE HEALTH PROVIDER RECORDS, PREVIOUS HISTORY, EXAM, TEST, PROCEDURE, AND MEDICATIONS) 2. FACE TO FACE ENCOUNTER OBTAINING HISTORY FROM THE PATIENT/FAMILY/CAREGIVERS; PERFORMING EVALUATION AND EXAMINATION; ORDERING TESTS OR PROCEDURES; REFERRING AND COMMUNICATING WITH OTHER HEALTHCARE PROVIDERS; COUNSELING AND EDUCATION OF THE PATIENT/FAMILY/CAREGIVERS; INDEPENDENTLY INTERPRETING RESULTS (TESTS, LABS, PROCEDURES, IMAGING) AND COMMUNICATING AND EXPLAINING RESULTS TO THE PATIENT/FAMILY/CAREGIVERS 3. COORDINATION OF CARE; PREPARING AND PRINTING DISCHARGE INSTRUCTIONS AND ANY EDUCATIONAL MATERIAL FOR THE PATIENT/FAMILY/CAREGIVERS. DOCUMENTING CLINICAL INFORMATION IN THE ELECTRONIC MEDICAL RECORD 4. REVIEWING OARRS NEEDED MDM 1) COMPLEXITY: MORE THAN 1 STABLE CHRONIC CONDITION ADDRESSED OR 1 ACUTE ILLNESS ADDRESSED 2)DATA: TESTS INTERPRETED AND OR ORDERED, TOOK INDEPENDENT HISTORY OR RECORDS REVIEWED 3)RISK: MODERATE RISK DUE TO NATURE OF MEDICAL CONDITIONS/COMORBIDITY OR MEDICATIONS ORDERED OR SURGICAL OR PROCEDURE REFERRAL Follow up as before documented in this encounter [facility] Work Phone: 11-09-2022 Miscellaneous Notes Teresa Baeza. This came to the [facility] [place]. This may have landed in the wrong place? Please call with any questions. [phone] Lexie ZAMARRIPA Patient called requesting to schedule with Jatinder KATIE for a second opinion for Right breast pain. She is currently scheduled to be seen on 11/29/22. Please notify the patient if additional intake is required by the breast center prior to her appointment. documented in this encounter [facility] 09-28-2022 Note Provider Note: Procedure: Post Removaladhesive wound closure strips applied Chart Review: HISTORY OF PRESENTING ILLNESS ABDIEL is a 26 year old Female and was seen by me at 28-Sep-2022 14:18. Triage Information: Most recent Vital Sign Value Date PAST MEDICAL HISTORY ALLERGIES/INTOLERANCES: No Known Allergies HEALTH HISTORY: No documented data. OUTPATIENT MEDICATIONS: Home Medications Review Status for Reconciliation: Complete Med Status: No Current Medications SIGNIFICANT EVENTS: Clinical Events Description:Surgical Procedure Additional Notes:1. 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 Her original surgery date for the most recent surgery was September 13. She has had no fevers chills no chest pain or shortness of breath no drainage from the sites and her physical therapy is going well. Patient was told that her PCP would remove the sutures but the chief knowledge officer said that that was not part of their policy. Patient does not plan on returning to [place] for suture removal. There are 4 total sutures and 2 small 1 inch incisions. Review of Systems All systems negative except as noted in HPI or elsewhere in the chart Constitutional: no fever, chills, weakness, dizziness Eyes: no redness, discharge, vision change, pain ENT: no sore throat, nosebleeds, rhinorrhea, hearing loss, ear pain, ear discharge Cardiovascular: no chest pain, leg edema, palpitations Respiratory: no shortness of breath, cough, dyspnea on exertion, pleurisy, hemoptysis GI: no nausea, diarrhea, pain, vomiting, constipation, BRBPR, melena, heartburn : no dysuria, discharge, frequency, flank pain, hematuria, bleeding Musculoskeletal: no myalgia, neck/back pain, redness, arthralgia, inflammation Skin: no rash, bruising, contusions, swelling,+ incisions , no lacerations, abrasions Neurological: no headache, numbness, change in function, weakness, AMS, paresthesias, speech change Psychiatric: no AMS, agitation, suicidal, confusion, depression, anxiety Metabolic: no fatigue, polyuria, hair change, dry skin, weakness, polydipsia, temperature intolerance Hematologic: no bleeding, nodes, bruising, petechiae Allergic: no rhinorrhea, sneezing, atopic dermatitis, frequent URIs PMFSH Nursing notes reviewed and confirmed by me. Past Medical History: Slipping scapular syndrome Past Surgical History: Tonsillectomy, previous 3 total right shoulder/scapular surgeries LMP: G P Tetanus: UTD Family History: Noncontributory at this time Social History: no smoking, alcohol use, substance abuse, lives has been, marital status Allergies and Medications: See nurses notes. Physical Exam Constitutional: Vital signs per nursing notes. Well developed, well nourished. No acute distress. Young female pleasant evaluated in super track #2 Psychiatric: alert and oriented to person, place, and time; no abnormalities of mood or affect; memory intact Eyes: PERRL; conjunctivae and lids normal; EOMI ENT: Patient wearing a mask Neck: neck supple, no meningismus; trachea midline without deviation; no lymphadenopathy; no thyromegaly; carotid pulses even bilaterally Chest: no masses or tenderness, no discharge Respiratory: normal respiratory effort and excursion; Cardiovascular: regular rate and rhythm; no murmurs, rubs or gallops; symmetric pulses; no edema; normal capillary refill; distal pulses present Neurological: normal speech; CN II-XII grossly intact; Musculoskeletal: normal gait and station; normal digits and nails; no gross tendon or ligament injury; normal to palpation; normal strength/tone; neurovascular status intact; (-) Homans sign; (-) straight leg raise Skin: normal to inspection; normal to palpation; no rash, there are two 1 inch incisions to the patient's lower right thoracic area on her back, one is near the blade of the scapula, 1 is below the scapula, both appear well-healing with no drainage, there are 2 sutures in each incision area, the most superior incision has mild erythema edema but edges are well approximated with no obvious infection or edema surrounding GCS: 15 Diagnosis: suture removal sutures were removed without difficulty patient tolerated well, Betadine and alcohol were used to clean the incisions, Steri-Strips were applied. Patient has a virtual visit tomorrow. Theo (more content not included)... [facility] 09-11-2022 History of Presen t illness Narrative S/P R bursectomy/scapulectomy done 09/11/22 (the 3rd such surgery). Continue with ROM/PRE/modalities per protocol. Initial physical findings include limited shldr passive/active motion with assumed weakness. It was suggested that the patient bring in a family member for home PROM. Clinic frequency maybe reduced if protocol milestones are met early.The patient felt much looser with active shldr elevation after treatment today.Clinical Presentation: Stable and/or uncomplicated characteristics.Level of Complexity: lowProblem List: activity limitations, ADLs/IADLs/self care skills, decreased functional level, decreased knowledge of HEP, decreased knowledge of precautions, pain, range of motion/joint mobility and strength. [facility] Work Phone: 06-16-2022 Note HNO ID: [id number] Author: Jennifer Pryor MD Service: ? Author Type: Physician Type: Progress Notes Filed: 06/16/2022 12:43 PM Note Text: . Respiratory [place] Note Patient name: Abdiel Carranza PCP: Seb Wild Referring Physician: Self referral CC: lung nodule HPI: Abdiel Carranza 26 year old female non-smoker with PMH significant for exercise-induced asthma and seasonal allergies who presents as a second opinion for incidental pulmonary nodules. History dates back to June of last year when she had imaging of her right shoulder due to pain. Incidental note of a small pulmonary nodule which led to a full chest CT. Chest CT was pertinent for multiple subcentimeter right axillary lymph nodes and a 4 mm right-sided pulmonary nodule. Subsequent chest CT January 2022 showed a 3 mm right lower lobe nodule 4 mm nodular density in the right minor fissure with no new findings. Patient was concerned about recommendations for yearly CT for 2 years surveillance. No new respiratory symptoms. She has had chronic intermittent cough for years related to her asthma and her allergies. No change in the character of her cough. No wheezing, no chest pain, no shortness of breath. No history of cancer. Patient is a lifelong non-smoker. DATA: Imaging / Diagnostic Studies: Chest CT without contrast 02/23/2022 [facility]: I personally reviewed the images as well as with the patient which shows a 3 to 4 mm pulmonary nodule and probable intrapulmonary lymph node with some minor thickening of the fissure. No adenopathy. PAST MEDICAL HISTORY Diagnosis Date Asthma Asthma due to seasonal allergies ALLERGIES No Known Allergies montelukast (SINGULAIR) 10 mg tablet Take 10 mg by mouth daily at bedtime. Social History Tobacco Use Smoking status: Never Smokeless tobacco: Never FAMILY HISTORY Problem Relation Age of Onset No Known Problems Mother Hypertension Father No Known Problems Brother PAST SURGICAL HISTORY Procedure Laterality Date SHOULDER SURGERY HX Right PMH, Social history, family history and surgical history reviewed and updated in EMR REVIEW OF SYSTEMS: CONSTITUTIONAL: No fevers, chills, nightsweats, unintended weight loss HEENT: Denies current nasal congestion/sinus symptoms, problematic allergy problems. EYES: No diplopia or blurry vision. CARDIOVASCULAR: No chest pain, dyspnea, palpitations, orthopnea, PND, edema. PULM: See HPI GI: No dysphagia/odynophagia, problematic reflux, constipation, diarrhea, changes in stool habits : No urinary complaints, including dysuria, gross hematuria or pyuria. NEURO: No new balance problems, peripheral weakness/paresthesias or numbness of concern. MUSC-SKEL: No joint pain, swelling, or erythema. PSY: No concerns regarding depression, anxiety INTEGUMENTARY: No new skin changes, rashes, history of eczema PHYSICAL EXAMINATION: BP 106/74 Pulse 85 Resp 12 Ht 5' 1 (1.55m) Wt 250 lb 9.6 oz (113.7kg) SpO2 100% BMI 47.37 kg/(m2). General Appearance: Age appropriate, NAD Skin: Skin color, texture, turgor normal, no suspicious rashes or lesions. Head: Normocephalic, no masses, lesions, tenderness or abnormalities. Eyes: Sclera conjunctiva normal Oropharynx: No oral lesions or thrush. Dentition good Neck: No JVD, no masses, no TM Back: Normal configuration, no tenderness Lungs: Not labored, normal to percussion Heart: Regular rate and rhythm, no murmurs gallops Extremities: No edema, clubbing Neurologic: Alert and oriented, no focal findings Lymph Nodes: Left cervical small nontender and freely movable lymph node. No other palpable nodes Assessment/Plan: 1. Lung nodules -Less than 4 mm nodule in a low risk patient. Acccording to Fleischner criteria, no further follow-up needed Jennifer Pryor MD [facility] 06-16-2022 History of Presen t illness Narrative Images from the original note were not included. . [facility] Note Patient name: Abdiel Carranza PCP: Seb Wild Referring Physician: Self referral CC: lung nodule HPI: Abdiel Carranza 26 year old female non-smoker with PMH significant for exercise-induced asthma and seasonal allergies who presents as a second opinion for incidental pulmonary nodules. History dates back to June of last year when she had imaging of her right shoulder due to pain. Incidental note of a small pulmonary nodule which led to a full chest CT. Chest CT was pertinent for multiple subcentimeter right axillary lymph nodes and a 4 mm right-sided pulmonary nodule. Subsequent chest CT January 2022 showed a 3 mm right lower lobe nodule 4 mm nodular density in the right minor fissure with no new findings. Patient was concerned about recommendations for yearly CT for 2 years surveillance. No new respiratory symptoms. She has had chronic intermittent cough for years related to her asthma and her allergies. No change in the character of her cough. No wheezing, no chest pain, no shortness of breath. No history of cancer. Patient is a lifelong non-smoker. DATA: Imaging / Diagnostic Studies: Chest CT without contrast 02/23/2022 [facility]: I personally reviewed the images as well as with the patient which shows a 3 to 4 mm pulmonary nodule and probable intrapulmonary lymph node with some minor thickening of the fissure. No adenopathy. PAST MEDICAL HISTORY Diagnosis Date Asthma Asthma due to seasonal allergies ALLERGIES No Known Allergies montelukast (SINGULAIR) 10 mg tablet Take 10 mg by mouth daily at bedtime. Social History Tobacco Use Smoking status: Never Smokeless tobacco: Never FAMILY HISTORY Problem Relation Age of Onset No Known Problems Mother Hypertension Father No Known Problems Brother PAST SURGICAL HISTORY Procedure Laterality Date SHOULDER SURGERY HX Right PMH, Social history, family history and surgical history reviewed and updated in EMR REVIEW OF SYSTEMS: CONSTITUTIONAL: No fevers, chills, nightsweats, unintended weight loss HEENT: Denies current nasal congestion/sinus symptoms, problematic allergy problems. EYES: No diplopia or blurry vision. CARDIOVASCULAR: No chest pain, dyspnea, palpitations, orthopnea, PND, edema. PULM: See HPI GI: No dysphagia/odynophagia, problematic reflux, constipation, diarrhea, changes in stool habits : No urinary complaints, including dysuria, gross hematuria or pyuria. NEURO: No new balance problems, peripheral weakness/paresthesias or numbness of concern. MUSC-SKEL: No joint pain, swelling, or erythema. PSY: No concerns regarding depression, anxiety INTEGUMENTARY: No new skin changes, rashes, history of eczema PHYSICAL EXAMINATION: BP 106/74 Pulse 85 Resp 12 Ht 5' 1 (1.55m) Wt 250 lb 9.6 oz (113.7kg) SpO2 100% BMI 47.37 kg/(m^2). General Appearance: Age appropriate, NAD Skin: Skin color, texture, turgor normal, no suspicious rashes or lesions. Head: Normocephalic, no masses, lesions, tenderness or abnormalities. Eyes: Sclera conjunctiva normal Oropharynx: No oral lesions or thrush. Dentition good Neck: No JVD, no masses, no TM Back: Normal configuration, no tenderness Lungs: Not labored, normal to percussion Heart: Regular rate and rhythm, no murmurs gallops Extremities: No edema, clubbing Neurologic: Alert and oriented, no focal findings Lymph Nodes: Left cervical small nontender and freely movable lymph node. No other palpable nodes Assessment/Plan: 1. Lung nodules -Less than 4 mm nodule in a low risk patient. Acccording to Fleischner criteria, no further follow-up needed Jennifer Pryor MD [facility] documented in this encounter [facility] 06-13-2022 Miscellaneous Notes Patient wanting to schedule a new patient consult with Dr. Pryor. Patient had CT at [facility] (she has disc and reports) stating she had a nodule on her R lung along with a swollen lymph node. Please advise and contact patient at number listed. 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 LTG's: 1) Improve R shoulder strength from 4/5 throughout to >= 5-/5 throughout in order to facilitate ability to reach overhead and lift objects. 4-6 weeks 03/27/2022, PARTIALLY MET, R shoulder strength 4 to 4+/5 throughout 04/18/2022, PARTIALlY MET, R shoulder strength 4/5 throughout 05/09/2022, PARTIALLY MET, R shoulder strength 4+ to 5-/5 throughout 2) Improve R shoulder PROM from 155 deg flex/abd, 85 deg ER and 65 deg IR to >= 170 deg flex/abd and 95 deg ER and 80 deg IR in order to better reach overhead or behind back. 4-6 weeks 03/27/2022, MET, 170 deg flexion/abd, 80 deg IR and 90 deg ER comfortably. 3) Improve cervical AROM from [place] 25% b/l SB and Rot to No significant limitation in order to improve ability to move head better to scan with driving. 4-6 weeks 05/09/2022, MET, Cervical AROM is without limitation 4) Improve R shoulder/neck pain from 4/10 to <= 1/10 with activity in order to improve QOL. 4-6 weeks 03/27/2022, PARTIALLY MET, pain range 0-3/10 with activity 04/18/2022, PARTIALLY MET, pain range 1-4/10 neck and R shoulder/scapula 05/09/2022, PARTIALLY MET, pain range 2-6/10 neck and R shoulder./scapula 5) Improve quick dash score by >= 7 points in order to improve QOL. 4-6 weeks 03/27/2022, MET, Pt improved score from 32 to a 22 at re-evaluation 05/09/2022, PARTIALLY MET, pt scored a 24 at DC 6) The pt will improve ability to raise arm/shoulder overhead, reach at various angles, lift/carry objects, dress upper body, overhead activity and return to work without significant limitation. 4-6 weeks 03/27/2022, PARTIALLY MET, Pt is able to do all above tasks better with improved pain but still needs to be cautious not to over do it 04/18/2022, PARTIALLY MET, pt is able to lift objects overhead and perform house work with less pain/discomfort but has to be careful not to over do it. 05/09/2022, pt is able to lift and perform housework but reports that she still has pain and muscle spasm when lifting over 15# for longer time frames. ST) Pt/caregiver will be I and consistent with HEP with use of handout as needed in order to maximize shoulder strength and ROM/flexibility. 2-3 weeks 03/27/2022, MET, pt is I with current HEP and has handouts. 04/18/2022, MET, pt is I with current HEP and has handouts. 05/09/2022, MET, pt is I with current HEP and has handouts. Planned interventions include: education/instruction, home program, manual therapy and therapeutic exercises . Manual Therapy including IASTM to neck and shoulder region as needed use caution over arthroscope port sites. Modality use as needed. Focus on ROM/flexibility and Soft Tissue work with light resistance strengthening. See Script in chart for more details. Dry needling added per physical therapist consult (DD). Frequency and duration:. Continue as per current PT POC with added cervical diagnosis and neck treatment to POC for 16 total sessions. Potential to achieve rehab goals is good 05/09/2022 PT DC summary completed: The pt has made objective improvement with R shoulder/scapular strength, ROM/flexibility but still has significant scapular/R UT muscle spasm and pain that comes and goes with activity. Pt reports that she has good days and bad days with the pain/muscle spasm. Pt is I with her HEP and is consistent with her strengthening exercises at home. Pt reports that soft tissue work including IASTM and dry needling seem to help. DC PT at this time and continue with HEP and follow up with MD. Pt is to continue with soft tissue work and dry needling through self pay Phase 2 program at this facility. Discharge patient: Achieved all and/or the most significant goal(s). Assessment The pt has made objective improvement with R shoulder/scapular strength, ROM/flexibility but still has significant scapular/R UT muscle spasm and pain that comes and goes with activity. Pt reports that she has good days and bad days with the pain/muscle spasm. Pt is I with her HEP and is consistent with her strengthening exercises at home. Pt reports that soft tissue work including IASTM and dry needling seem to help. DC PT at this time and continue with HEP and follow up with MD. Pt is to continue with soft tissue work and dry needling through self pay Phase 2 program at this facility. Response to treatment: improved strength. Patient was able to complete today's treatment with ease. Adult Risk Screening There are no spiritual/cultural practices/values/needs that are important to know Initial Fall Risk Screening: ABDIEL has not fallen in the last 6 months. Her fall did not result in injury. ABDIEL does not have a fear of falling. She does not need assistance with sitting, standing or walking. Does not need assistance walking in her home. She does not need assistance in an unfamiliar setting. The patient i (more content not included)... [employer] 02-09-2022 History of Presen t illness Narrative The pt presents with Medical Dx of R shoulder snapping scapula syndrome, S/P R shoulder endoscopic scapular bursectomy and decompression 02/09/2022 . Pt presents with the following deficits: increased pain, decreased strength, ROM, flexibility, functional movement and use of R shoulder. Pt would benefit from PT services in order to improve on these deficits and to maximize strength and ability for functional activity/mobility.Clinical Presentation: Evolving with changing characteristics.Problem List: activity limitations, ADLs/IADLs/self care skills, decreased knowledge of HEP, flexibility, pain, range of motion/joint mobility and strength. [facility] Work Phone: 02-09-2022 Reason for visit Narrative Initial Evaluation, Post-Op R shoulder endoscopic scapular bursectomy and decompression 02/09/2022 . R shoulder endoscopic scapular bursectomy and decompression 02/09/2022.Referred by: Dr. Perez [facility] Work Phone: [facility] Work Phone: 1([phone]) 701-478009-24-2021 Instructions* Patient Instructions* ANUPAM GaldamezOLOGIST - 05/20/2021 10:12 AM EDT Nail Surgery Post-Operative Instructions General Information Stay off your feet as much as possible today. You may wear any shoe, sandal, or open toe footwear that does not squeeze or constrict your toe. Your toe may remain numb for up to 6-10 hours after the procedure. Bleeding/Drainage Slight bleeding, discoloration and/or red, pink, orange drainage is normal. Discomfort You can elevate your foot to help alleviate minor swelling, bleeding and discomfort. You may also take aspirin, Tylenol or other ujoe-lhs-ptgsmle pain relievers as directed on the package. If pain isnot controlled to your comfort, please contact our office. Removing the surgical bandage/dressing The day after the surgery, carefully remove the dressing and shower/bathe as normal. If the gauze or dressing sticks to the surgical area, dampen it with water or shower/bathe with the dressing in place. This will make the dressing easier to remove with minimal discomfort. Blot dry with a clean cloth. A band-aid and antibiotic ointment should be changed twice daily on the surgical area until your follow-up appointment with the doctor. documented in this [id number] History of Present illness Narrative* Brett Burgos Jr., DPM - 05/20/2021 9:37 AM EDT Patient comes in today for bilateral nail matrixectomy and avulsion. Primary risks include osteomyelitis recurrence pain tingling burning scarring and infection. Despite this clear and substantial risk she does wish to proceed. No guarantees were implied or made. Consent was signed and documented in the EMR. Procedure: Timeout and consent was performed for Left great toe lateral nail avulsion. Attention was directed laterally where the nail was split with an Uzbek anvil distally to approximately 3 mm off the hyponychium just below the eponychium and finished with a 6100 blade. The offending nail border was bluntly avulsed and passed off the surgical field. A curette was used to check for spicules, none were found. A copious amount of normal saline was used. No abscess was appreciated. 3 applications of phenol 30 seconds each on a cotton tip applicator were applied to the matrix. Post irrigationa copious amount of bacitracin was applied and a postop dressing was applied with Telfa Kerlix and K ling. Procedure: Timeout and consent was performed for right great toe lateral nail avulsion. Attention was directed laterally where the nail was split with an Uzbek anvil distally to approximately 3 mm off the hyponychium just below the eponychium and finished with a 6100 blade. The offending nail border was bluntly avulsed and passed off the surgical field. A curette was used to check for spicules,none were found. A copious amount of normal saline was used. No abscess was appreciated. 3 applications of phenol 30 seconds each on a cotton tip applicator were applied to the matrix. Post irrigation a copious amount of bacitracin was applied and a postop dressing was applied with Telfa Kerlix and Luis. F/u one week for f/u documented in this [id number] History of Present illness Narrative* Brett Burgos Jr., DPM - 05/18/2021 3:42 PM EDT HPI Chief Complaint Patient presents with Ingrown Toenail Bilateral ingrown great toenails. Patient is a pleasant 25-year-old female who comes in today with bilateral, lateral ingrown nails with pain. States that is been going on for 1 to 2 years. To help get this addressed, she has been seeing a nail salon getting semiaggressive nail cuttings. She states that she is tired of this happening is a continue become ingrown painful and sore. Hoping to get something done permanently for better long-term outcome. History reviewed. No pertinent past medical history. Past Surgical History: Procedure Laterality Date AR'SCOPY SHOULD POSTERIOR SUBSCAPULAR BURSECTOMY Right Social History Socioeconomic History Marital status: Spouse name: Not on file Number of children: Not on file Years of education: Not on file Highest education level: Not on file Occupational History Not on file Tobacco Use Smoking status: Never Smoker Smokeless tobacco: Never Used Substance and Sexual Activity Alcohol use: Never Drug use: Never Sexual activity: Not on file Other Topics Concern Not on file Social History Narrative Not on file Social Determinants of Health Financial Resource Strain: Difficulty of Paying Living Expenses: Not on file Food Insecurity: Worried About Running Out of Food in the Last Year: Not on file Ran Out of Food in the Last Year: Not on file Transportation Needs: Lack of Transportation (Medical): Not on file Lack of Transportation (Non-Medical): Not on file Physical Activity: Days of Exercise per Week: Not on file Minutes of Exercise per Session: Not on file Stress: Feeling of Stress : Not on file Social Connections: Frequency of Communication with Friends and Family: Not on file Frequency of Social Gatherings with Friends and Family: Not on file Attends Shinto Services: Not on file Active Member of Clubs or Organizations: Not on file Attends Club or Organization Meetings: Not on file Marital Status: Not on file Housing Stability: Unable to Pay for Housing in the Last Year: Not on file Number of Places Lived in the Last Year: Not on file Unstable Housing in the Last Year: Not on file Review of Systems Constitutional: Negative for chills and fever. Respiratory: Negative for cough and shortness of breath. Cardiovascular: Negative for chest pain, palpitations and leg swelling. Gastrointestinal: Negative for diarrhea, nausea and vomiting. Skin: Negative for wound. Physical Exam -Patient is alert and oriented to person place and time. Linear and appropriate humor and thought process. Vascular: DP PT pulses are easily palpable 2 out of 4. CFT is fair no edema. Derm: Mild erythema distal laterally and distal laterally to the left and right though no purulenceno streaking no lymphangitis. Does have pain to both corners. Neuro: Light touch is normal Babinski's is normal. Musculoskeletal: Muscle strength is 5/5 with fair tone, can easily wiggle toes without any clickingor catching. Ankle midtarsal subtalar is full and pain-free. Impression/Plan Problem List Items Addressed This Visit None Visit Diagnoses Ingrown nail of great toe of left foot - Primary Ingrown nail of great toe of right foot Assessment and plan: Patient is a pleasant 25-year-old female with bilateral, lateral great nail ingrown's with pain. -At this time to go over options and continuing to cut nails aggressively versus a more permanent option including left lateral and right lateral nail avulsion with chemical matrixectomy for permanency. -Together decided on the procedure, bilateral lateral nail avulsion with chemical matrixectomy for permanency. This does come with obvious and clear risk including pain tingling burning scarring infection recurrence. Despite this risk she does wish to proceed. No guarantees were implied or made. -She will come back in the next 1 to 2 weeks to perform procedure. Low medical complexity decision making based on the chronicity and waxing and waning character. documented in this [id number] NotePROCEDURE DETAILS Preoperative Diagnosis: Scapulothoracic bursitis of right shoulder Postoperative Diagnosis: Scapulothoracic bursitis of right shoulder Surgeon: Wesley Coburn Resident/Fellow/Other [place]pe Operator: Tamir George Procedure: Right Shoulder Scapulothoracic Bursectomy Anesthesia: Joe Benjamin Estimated Blood Loss: 5ml Blood Replaced: None Findings: Consistent with diagnosis Specimens(s) Collected: no, Complications: None Drains and/or Catheters: NONE Patient Returned To/Condition: PACU/STABLE Operative Report: Is a very pleasant female who failed conservative management her for scapulothoracic bursitis. This including injections where she had temporary relief but also therapy. Risk benefits alternatives including chest wall injury infection bleeding and no improvement in pain were discussed at length with the patient and she wished to proceed. Findings at the time of surgery we found scapulothoracic bursitis. She did not have any evidence of bone spurs. We did smooth the area closest to the scapular spine with shaver. The bursitis was excised Operative report on the day of surgery she was seen in preop holding area her right scapula was marked as the correct operative site she was taken the operating room center [facility]. We performed a huddle. Confirmed right shoulder was the correct operative site. She was intubated sedated. She was positioned in the prone position. All bony prominences were well-padded. Her arm was placed in a chicken wing position in order to bring the scapulothoracic bursa into a safer zone. We prepped and draped in standard fashion. We insufflated the bursitis region with 30 cc of normal saline. Incisions 3 cm medial to the scapula were made just inferior to the scapular spine and 6 cm distal to this. We entered the bursitis region. We excised these bursitis with Bovie electrocautery as well as the shaver. This nicely freed up this area. Scar tissue was also excised. I was very satisfied with this. Closed with nylon sutures with patient anesthesia transfer the PACU where she was recovering Signatures/Attestation: Note Completion: Attending AttestationI performed the procedure without a resident Electronic Signatures: Wesley Coburn) (Signed 09-Feb-2021 17:33) Authored: Post-Operative Note, Chart Review, Note Completion Co-Signer: Post-Operative Note, Chart Review, Note Completion Tiffanie Jett (ENGRAVING PLATE MAKER-SEASONING SPRAYER) (Signed 09-Feb-2021 14:00) Authored: Post-Operative Note, Chart Review, Note Completion Last Updated: 09-Feb-2021 17:33 by Wesley Coburn)[facility] 02-09-2021 History of Present illness NarrativeRight shoulder scapulothoracic bursectomy on 02/09/21 for bursitis.[id number] [address] Work Phone: [phone]) 132-549306-16-2021 History of Present illness Narrative* 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 She returns to clinic for her first postoperative visit. She is status post right shoulder scapulothoracic bursectomy on 02/09/21 for bursitis. * She reports doing well after surgery. Pain is well managed with minimal pain medication at this time. She denies use of narcotic pain medication at this time. Using ice daily. She is sleeping withoutdifficulty. She denies redness or warmth at incision site. Denies fever and chills. She has been very compliant with restrictions. Presents today wearing her sling. Doing well with daily home therapyfor elbow, wrist and hand. [id number] [address] Work Phone: [phone]) 725-725206-16-2021 History of Present illness Narrative* S/P R scapular bursal debridement done 02/09/21. She is to continue to wear her brace and no strengthening and limited AROM right now (see script). Rows were tried but exacerbated sx so they were D/Cdby the Drs office. Continue with P-->AROM per script guidelines. * It was suggested that the patient bring in a family member for home PROM. * Clinical Presentation: Stable and/or uncomplicated characteristics. * Level of Complexity: low * Problem List: activity limitations, ADLs/IADLs/self care skills, decreased functional level, decreased knowledge of HEP, decreased knowledge of precautions, pain, range of motion/joint mobility and strength. 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 She returns to clinic for arepeat postoperative visit. She is status post right shoulder scapulothoracic bursectomy on 02/09/21for bursitis. * She reports doing well after surgery but she continues to have some neck pain. This continues to wake her up at night. She states that the shoulder pain has improved some. 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 She returns to clinic for arepeat postoperative visit. She is status post right shoulder scapulothoracic bursectomy on 02/09/21for bursitis. * She reports doing well after surgery but she continues to have some neck pain. This continues to wake her up at night. She states that the shoulder pain has improved some. 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 She returns to clinic for arepeat postoperative visit. She is status post right shoulder scapulothoracic bursectomy on 02/09/21for bursitis. * She reports doing well after surgery but she continues to have some neck pain. She states that the shoulder pain has improved some. She indicates that she still needs to crack her neck in the morning but has been able to sleep through the night. [facility] [place] [address] DO Work Phone: [phone]) [phone] NoteHistory & Physical Reviewed: /Lactating: Are You no Are You Currently Breastfeedingno (1) I have reviewed the History and Physical dated: 01-Feb-2021 History and Physical reviewed and relevant findings noted. Patient examined to review pertinent physical findings.: No significant changes Home Medications Reviewed: no changes noted Allergies Reviewed: no changes noted ERAS (Enhanced Recovery After Surgery): ERAS Patient: no Consent: COVID-19 Consent: COVID-19 Risk ConsentSurgeon has reviewed yoder risks related to the risk of christian COVID-19 and if they contract COVID-19 what the risks are. Signatures/Attestation: Note Completion: Attending Provider Inpatient Certification StatementObservation patient/other outpatient visits Electronic Signatures: Wesley Coburn) (Signed 09-Feb-2021 16:22) Authored: DESIREE, Note Completion Co-Signer: History & Physical Reviewed, Consent Tiffanie Jett (ENGRAVING PLATE [employer]KER-SEASONING SPRAYER) (Signed 09-Feb-2021 10:52) Authored: History & Physical Reviewed, Consent Last Updated: 09-Feb-2021 16:22 by Wesley Coburn) References: 1. Data Referenced From Patient Profile - Preop v2 09-Feb-2021 09:26[facility]05-04-2021 History of Present illness NarrativePt presents to office c/o of worsening dry cough the past few weeks. She states the cough is worse at night and she has dyspnea on exertion and while coughing. She is in the process of remodeling herhome and has been sanding and working with [employer]. She has been treating her cough with an albuterol inhaler at night and states this helps. She has not tried any OTC cough or allergy medications. She reports a small amount of clear to green sputum at times, but states her cough is mostly dry. Bernadettehas had similar symptoms in the past mostly in the Winter and Spring. She denies fever, chest tightness, chest pain, history of asthma, nasal congestion, sore throat, or ear pain.[facility] Work Phone: [phone]) 458-238703-17-2021 History of Present illness NarrativeShe presents for follow up of CT scan of shoulder. On CT it did show 4 mm pulmonary nodule and 8 mmaxillary lymphadenopathy. She was renovating her house this past year and had some respiratory issues with this. She is doing better. We will get a CT scan of her whole chest. She had a COVID vaccinebut it was in her other arm. This arm has had surgery.[facility] Work Phone: [phone]) 682-676203-10-2021 History of Present illness NarrativePatient was identified by name and date. IASTM/STM okayed to add to POC per physical therapist consult and completed to reduce soft tissue restrictions at R upper cervical musculature.After manual therapy noted pain level at neck and R scap 3/10. She completed all therex without c/o. [facility] Work Phone: Evaluation note* Diagnosis Ingrown nail of great toe of left foot- Primary Ingrown nail of great toe of right foot [facility] Diagnosis Ingrown nail of great toe of left foot- Primary Ingrown nail of great toe of right foot documented [facility] noteThere may be information available, but it has not been provided by the sender.[facility] Work Phone: Evaluation note* Diagnosis Lung nodules- Primary Other nonspecific abnormal finding of lung field [facility] Diagnosis Neck swelling- Primary Swelling, mass, or lump in head and neck Abnormal TSH Chronic neck pain Cervicalgia Nodule of right lung Other diseases of lung, not elsewhere classified documented in this encounter [facility] Work Phone: Evaluation note* Diagnosis Acute gastroenteritis- Primary Other and unspecified noninfectious gastroenteritis and colitis Diarrhea, unspecified type documented in this encounter [facility] Work Phone: Evaluation note* Diagnosis Diarrhea, unspecified type- Primary documented in this encounter [facility] Work Phone: History of Present illness Narrative* ABDIEL RYAN is a pleasant 25 year old jtdz-iubd-wbxmhbud female 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 This has been bothering her for over 2 years. She has recently completed 7 weeks of physical therapy and dry needling which provided some relief but it was not sustained. She also saw the [facility] and was told that her pain was coming from her neck. She did have an injection at that time which did not provide any relief. She recently underwent right scapulothoracic injection with Dr Javed on 05/27/2020. This provided little to no relief of her scapula pain. She returns today to discuss surgery. * Past medical history, surgical history, social history, and family history were all reviewed and are as per the blue patient health history questionnaire form that I signed and scanned into the charttoday. 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 This has been bothering her for over 2 years. She has recently completed 7 weeks of physical therapy and dry needling which provided some relief but it was not sustained. She also saw the [facility] and was told that her pain was coming from her neck. She did have an injection at that time which did not provide any relief. She recently underwent right scapulothoracic injection with Dr Javed on 05/27/2020. This provided little to no relief of her scapula pain. She returns today to discuss surgery. * Past medical history, surgical history, social history, and family history were all reviewed and are as per the blue patient health history questionnaire form that I signed and scanned into the charttoday. 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 This has been bothering her for over 2 years. She has recently completed 7 weeks of physical therapy and dry needling which provided some relief but it was not sustained. She also saw the [facility] and was told that her pain was coming from her neck. She did have an injection at that time which did not provide any relief. She recently underwent right scapulothoracic injection with Dr Javed on 05/27/2020. This provided little to no relief of her scapula pain. She returns today to discuss surgery. * Past medical history, surgical history, social history, and family history were all reviewed and are as per the [facility] history questionnaire form that I signed and scanned into the charttoday. [facility] Work Phone: History of Present illness NarrativeTightness noted R shoulder IR. no c/o increased pain with ther ex and manual therapy. Pt. entered facility with sling donned. Reviewed HEP and how often she should wear her sling at home. [facility] Work Phone: History of Present illness Narrative* Pt. with fair tolerance with exercises, verbal cues needed with form. Pt. c/o tightness/soreness with right shoulder and pec region. IASTM and cupping to the affected area with multiple knots noted. Pt. states she has some soreness with UT's following session. * Response to treatment: decreased pain. * Patient was able to complete today's treatment with some difficulty. [facility] Work Phone: History of Present illness NarrativePatient was identified by name and date. IASTM/STM completed to reduce soft tissue restrictions at R side lower and upper cervical musculature. Consulted physical therapist Luanne Mario for DN. She was able to demo improved R shoudler and cervical ROM after manual therapy. [facility] Work Phone: History of Present illness NarrativePatient identity confirmed today with name/. emphasized R pec min release today; also stretch the R GH jt into IR; modified exercise to work through th surgical area previous to STW; the R pec minis tight and tender.[facility] Work Phone: History of Present illness NarrativePatient identity confirmed today with name/. Emphasized scapular control with postural exercises. Trialed thermostim today to address tissue restriction in UT, parascapular muscles and pec, decreased tissue restriction noted at end of session. PT Tre performed DN on patient at end of session.[facility] Work Phone: History of Present illness NarrativePatient was identified by name and date. IASTM/STM completed to reduce soft tissue restrictions at R upper and lower cervical musculature. She was able to progress her program and added prone unweighted scapular stabilization exercises with quick fatigue.[facility] Work Phone: History of Present illness NarrativeShe presents today for follow up on depression and anxiety. She is feeling much better. She does not want to be on the medication forever. We discussed possibly trying to get off of it on Ewing break. 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 She is feeling much better. She does not want to be on the medication forever. We discussed possibly trying to get off of it on Ewing break. 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 She would also like her ears rechecked and believes she may be getting thrush as she was recently on a different antibiotic for an infection and then had to be put on amoxicillin for her OM. * She reports that she is having right shoulder surgery on February 09. Her ortho told her that if her surgery didn't help with her neck pain, that they would get imaging (CT) of her neck and she would like to see if they can do her neck CT along with her repeat lung CT. * Left OM: She reports she went to [facility] clinic and was told she had an ear infection of her left ear and they put her on amoxicillin for 10 days. She is asking if her ears look better as she is concerned about not being able to get her surgery on the 16th. She denies any pain to her ear. She denies any fluid from her ears. She also reports that her lymph nodes were swollen. * Thrush: white coating on tongue, noticed it started yesterday. Denies any pain. [facility] Work Phone: History of Present illness NarrativePatient confirmed name and date of . Patient able to progress to R GH strengthening with good tolerance. Some discomfort in R UT with ER walkouts using orange, reduced to peach band and patient was able to complete 10 reps. Good ROM with PROM. HEP given along with bands, good understanding expressed. [facility] Work Phone: History of Present illness Narrative* Abdiel returns for CT chest results. * Lung nodules found incidental on imaging done by her ortho: Repeat CT of lung to assess nodules. Reviewed report with patient. [facility] 205 DO Work Phone: History of Present illness Narrative* Abdiel returns for CT chest results. * Lung nodules found incidental on imaging done by her ortho: Repeat CT of lung to assess nodules. Reviewed report with patient. he denies any shortness of breath, and is a non-smoker. [facility] 205 DO Work Phone: History of Present illness NarrativePatient was identified by name and date. IASTM/STM completed to reduce soft tissue restrictions at R shoulder and lower cervical musculature. Consulted physical therapist (DT) for dry needling to address moderate spasm in R UT. This session held T band exercises and focused on ROM /AROM of R shoulder and scapular stability exercises unweighted. After session she denied pain and c/o fatigue o nly. Noted unweighted in prone with poor eccentric control and quick fatigue.[facility] Work Phone: History of Present illness NarrativePatient identified by name and . IASTM/STM completed to reduce soft tissue restrictions in R lower cervical and shoulder musculature. After manual therapy she reported pain decreased to 1/10. During prone unweighted exercises demo's quick fatigue. LAVINIA Jeffries All clinical decision makingand treatment directly supervised by Cherise Powers PTA [id number].[facility] [address] Work Phone: History of Present illness Narrative* Patient was identified by name and date. IASTM/STM completed to reduce soft tissue restrictions at R shoulder and lower cervical musculature. Consulted physical therapist (DT) for dry needling to address moderate spasm in R UT. This session held T band exercises and focused on ROM /AROM of R shoulder and scapular stability exercises unweighted. After session she denied pain and c/o fatigue only. Noted unweighted in prone with poor eccentric control and quick fatigue. * TDN performed by Luanne Mario, PT, DPT at end of session in prone without any adverse side effects and verbalized good understanding of all edu provided concerning TDN. [facility] Work Phone: History of Present illness NarrativePatient identified by name and . IASTM/STM completed to reduce soft tissue restrictions at R shoulder musculature. Was able to progress prone scapular stabilization exercises without c/o. Noted during session patient was slow to fatigue during AROM exercises and had no increase to pain. LAVINIA Jeffries All clinical decision making and treatment directly supervised by Cherise Powers PTA [id number].[facility] Work Phone: History of Present illness NarrativePatient was identified by name and date. This session able to progress scap stability exercises and add quadruped activities with reports of fatigue only.[facility] Work Phone: History of Present illness NarrativePatient was identified by name and date. This session focus on manual work as patient had 2 week break from therapy and increased Sxs noted. IASTM/STM and cupping completed to reduce soft tissue restrictions at R shoulder and cervical musculature. She was bale to complete all UE PREs without c/o. [facility] Work Phone: History of Present illness NarrativePatient was identified by name and date. IASTM/STM completed to reduce soft tissue restrictions along medial border of scap. Consulted physical therapist (DT) for dry needling to address spasm along medial border of R scap. After manual therapy and dry needling she was able to progress scapular stability and added theraband exercises without c/o.[facility] Work Phone: History of Present illness NarrativePatient was identified by name and date. This session able to progress UE PREs and scap stability exercises with c/o fatigue only.[facility] Work Phone: History of Present illness NarrativePatient was identified by name and date. IASTM/STM completed to reduce soft tissue restrictions at R shoulder blade musculature. Notes after manual she obtained midline shoulder and cervical position. Completed all UE PREs with signs of fatigue only.[facility] Work Phone: History of Present illness NarrativePatient was identified by name and date. IASTM/STM completed to reduce soft tissue restrictions to R scapular and lower cervical musculature. After manual she was able to demo supine shoulder flexion WNL and denied pain. Completed all UE PREs without c/o.[facility] Work Phone: History of Present illness Narrative* The pt has made objective improvement with R shoulder/scapular strength, ROM/flexibility but still has significant scapular/R UT muscle spasm and pain that comes and goes with activity. Pt reports that she has good days and bad days with the pain/muscle spasm. Pt is I with her HEP and is consistentwith her strengthening exercises at home. Pt reports that soft tissue work including IASTM and dry needling seem to help. DC PT at this time and continue with HEP and follow up with MD. Pt is to continue with soft tissue work and dry needling through self pay Phase 2 program at this facility. * Response to treatment: improved strength. * Patient was able to complete today's treatment with ease. [facility] Work Phone: History of Present illness NarrativePatient identified by name and date of . Patient demonstrated good understanding of HEP with review. She demonstrated good ROM with PROM and cues to relax at times. Added UT stretch secondary topalpable tension and report of discomfort.[facility] Work Phone: History of Present illness NarrativePatient was identified by name and date. IASTM/STM and cupping completed to reduce soft tissue restrictions in R lower cervical and shoulder musculature. After manual therapy she demo'd all shoulder planes WNL.[facility] Work Phone: History of Present illness Narrative* Pt. with fair tolerance with session this date. Pt. notes discomfort with right scapula, bottom incision. Verbal cues needed with alfonso PAVON exercises. Fair tolerance with manual therapies this date, no c/o increased sx.s noted. * Response to treatment: decreased pain. * Patient was able to complete today's treatment with some difficulty. [facility] Work Phone: Hismudd of Present illness NarrativePatient identity confirmed today with name/. will hold PRE until next week; the patient was encouraged to continue consistent icing at days end per the patient the surgeon said to expect fatigue with rehab (but did not mention 6/10 pain) so PRE will be held until next week. [facility] Work Phone: History of Present illness NarrativePatient was identified by name and date. IASTM/STM completed to reduce soft tissue restrictions in R upper back and shoulder musculature. She reported decreased tightness and pain after manual therapy. Completed all exercises without c/o.[facility] Work Phone: History of Present illness NarrativePatient was identified by name and date. IASTM/STM completed to reduce soft tissue restrictions in R lower cervical musculature. Patient demos better mobility of R shoulder this session with minimal tightness noted on medial border of R scapula and biceps. Patient performed strengthening activities without difficulty and did not show any signs of increased fatigue or discomfort. Lizzy Campos All clinical decision making and treatment directly supervised by Cherise Powers PTA [id number].[facility] Work Phone: History of Present illness NarrativePatient was identified by name and date. Noted tightness in area surrounding surgical scar and borders of R scapula. Patient responded well to STM/IASTM And reported feeling looser after completion with decreased pain. Patient did well with progression of activity and completed them without difficulty. Patient demos minimal discomfort with R active shoulder flexion due to a pinching on the m edial border of the scap. Patient and therapist talked about potential of dry needling next sessionif needed. Lizzy Stoner SPTA All clinical decision making and treatment directly supervised by Cherise Powers PTA [id number].[facility] Work Phone: History of Present illness NarrativePatient was identified by name and date. Today able to progress resistance with T band exercises with no c/o increased Sxs. She noted fatigue after session. Discussed progression of HEP and shewill begin unweighted prone stability exercises. She voiced good understanding with instruction.[facility] Work Phone: History of Present illness NarrativePatient was identified by name and date. Consulted physical therapist (DT) for DN to address spasm in R scap musculature. IASTM/STM completed to reduce soft tissue restrictions in R shoulder/scap musculature. After manual therapy she denied tightness. Progress scap stability exercises withoutc/o.[facility] Work Phone: History of Present illness NarrativePatient was identified by name and date. IASTM/STM completed to reduce soft tissue restrictions in R cervical and scap musculature. After manual therapy she denied pain and tightness. She was able to complete prone scap stability exercises with minimal signs of fatigue.[facility] Work Phone: History of Present illness Narrative* Pt. with good tolerance with TE this date, increased reps with IR/ER IASTM to the right scapula which patient has tightness present. Pt. given cues with prone TE. * Response to treatment: decreased pain. * Patient was able to complete today's treatment with some difficulty. [facility] Work Phone: History of Present illness NarrativePatient was identified by name and date. IASTM/STM completed to reduce soft tissue restrictions at R scap musculature. Physical therapist (DT) consulted for DN. After manual she reported decreased pain and tightness. This session able to progress stability exercises with signs of fatigue only.[facility] Work Phone: History of Present illness NarrativePatient was identified by name and date. More localized region of restrictions which were addressed with cupping/IASTM/STM. She was able to progress CKC strengthening and added quadruped exercises and modified planks with signs of fatigue only. Increased weight during prone scap stability exercises without c/o.[facility] Work Phone: Hisknpy of Present illness Narrative* Patient with tightness noted distal scap/latissimus/flank and pectoralis muscles so added IASTM andSTM to these area. Also add pec stretch and advised to use moist heat/shower prior to stretch to reduce compensation with shoulder retraction. patient with improved elevation of R UE following manualintervention today. Plan to continue to progress strengthening and patient to follow up next visit with evaluating PT for formal reassessment and likely continuation of therapy for strengthening and HEP progression. * Response to treatment: improved flexibility, improved tissue mobility and improved knowledge and understanding of condition. [facility] Work Phone: Hispoqq of Present illness Narrative* Patient identity confirmed today with name/. see goals; good ROM and strength gains; still C/O reduced crepitus with mildly reduced max sx levels; ongoing HEP reviewed and updated today. * Response to treatment: improved flexibility, improved tissue mobility and improved knowledge and understanding of condition. [facility] Work Phone: history of Present illness Narrative* Patient identity confirmed today with name/. see goals; good ROM and strength gains; still C/O reduced crepitus with mildly reduced max sx levels; ongoing HEP reviewed and updated today. * Response to treatment: improved flexibility, improved tissue mobility and improved knowledge and understanding of condition. [facility] Work Phone: History of Present illness Narrative* Patient identity confirmed today with name/. * Patient reports tightness and soreness around scapula and pec muscles. Added subscapularis stabilization exercise. COntinued with IASTM and cupping to reduce tissue restriction. patient continues to have restriction in periscapular muscles especially at areas of incision sites. Pec flexibility has improved with stretches. Reviewed use of heat prior to stretching and use of cold/ice after increased activity/exercise. Added upper trap and levator scap stretches due to tightness and patient complaint. * Response to treatment: improved flexibility, improved tissue mobility and improved knowledge and understanding of condition. [facility] Work Phone: History of Present illness NarrativePatient was identified by name and date. Today noted very localized region of muscle tightness at incision. Consulted physical therapist (DT) for DN to address. Progressed CKC strengthening andprone B/L scap exercises and noted quick fatigue. This session demo'd planks vs modified plank without c/o.[facility] Work Phone: History of Present illness NarrativePatient identified by date of and name. She is able to perform planks in quadruped with notedfatigue. Most challenged with T band ER/IR in small ROM. Completed all stability exercises without c/o. Anita REAA. All clinical decision making and treatment directly supervised by Cherise Powers SALES ORDER COORDINATOR [id number].[facility] Work Phone: History of Present illness NarrativePatient was identified by name and date. Consulted physical therapist (DT)for DN to address spasm more localized along R medial border of scap and UT. After DN she was able to complete all stability and UE PREs without c/o.[facility] Work Phone: History of Present illness Narrative* Lexie Nguyen APRN-SEASONING SPRAYER - 06/05/2023 1:20 PM EDT Subjective Patient ID: Abdiel Carranza is a 27 y.o. female who presents for Abdominal Cramping (4 days) and Diarrhea (X 3 days associated with a fever ). VIRTUAL APPOINTMENT BEING PERFORMED DUE TO COVID-19 (CORONAVIRUS) HPI: Presents today for C/O DIARRHEA X 4 DAYS modifying factors consists of NEGATIVE FOR COVID. RECENT ATB USE associated symptoms consist of ABD PAIN. NAUSEA, NO VOMITING. FEVER X 3 DAYS. LOW GRADE TODAYprior treatment consists of medication WATER AND GATORADE Visit Vitals OB Status Having periods Smoking Status Never Review of Systems Constitutional: Positive for fatigue and fever. Negative for chills and unexpected weight change. HENT: Negative for congestion, ear pain, sore throat and trouble swallowing. Eyes: Negative for photophobia, pain, redness and visual disturbance. Respiratory: Negative for apnea, cough, choking, chest tightness, shortness of breath and wheezing. Cardiovascular: Negative for chest pain, palpitations and leg swelling. Gastrointestinal: Positive for abdominal pain, diarrhea and nausea. Negative for abdominal distention, blood in stool, constipation and vomiting. Genitourinary: Negative for difficulty urinating, dysuria, flank pain, frequency, hematuria and urgency. Musculoskeletal: Negative for arthralgias, back pain, gait problem, joint swelling, myalgias and neck pain. Skin: Negative for rash and wound. Neurological: Negative for dizziness, seizures, syncope, facial asymmetry, speech difficulty, weakness, numbness and headaches. Psychiatric/Behavioral: Negative for confusion, sleep disturbance and suicidal ideas. The patient is not nervous/anxious. Objective Physical Exam Neurological: Mental Status: She is alert. Psychiatric: Mood and Affect: Mood normal. Behavior: Behavior normal. Thought Content: Thought content normal. Judgment: Judgment normal. Assessment/Plan Problem List Items Addressed This Visit Acute gastroenteritis - Primary Diarrhea Relevant Medications metroNIDAZOLE (Flagyl) 500 mg tablet Other Relevant Orders C. difficile, PCR Ova/Para + Giardia/Cryptosporidium Antigen Stool Pathogen Panel, PCR INCREASE FLUID INTAKE AND TAKE TYLENOL 650 MG PO Q6H/PRN FOR PAIN OR FEVER. RETURN SOONER OR GO TO THE ER IF SYMPTOMS PERSIST OR WORSEN WE DISCUSSED MOST COMMON SIDE EFFECTS OF PRESCRIBED MEDICATIONS. INDICATIONS, RISK, COMPLICATIONS, AND ALTERNATIVES OF MEDICATION/THERAPEUTICS WERE EXPLAINED AND DISCUSSED. PLEASE MONITOR CLOSELY FORANY UNTOWARD SIDE EFFECTS OR COMPLICATIONS OF MEDICATIONS. PATIENT IS STRONGLY ADVISED TO BE COMPLIANT WITH RECOMMENDATIONS. QUESTIONS AND CONCERNS WERE ADDRESSED. INSTRUCTED TO CALL, RETURN SOONER, OR GO TO THE ER, IF SYMPTOMS PERSIST OR WORSEN. THEY VOICED UNDERSTANDING AND DENIES FURTHER QUESTIONS AT THIS TIME. TIME CODE 1. PREPARATION FOR PATIENT'S VISIT (REVIEWING CHART, CURRENT MEDICAL RECORDS, OUTSIDE HEALTH PROVIDER RECORDS, PREVIOUS HISTORY, EXAM, TEST, PROCEDURE, AND MEDICATIONS) 2. FACE TO FACE ENCOUNTER OBTAINING HISTORY FROM THE PATIENT/FAMILY/CAREGIVERS; PERFORMING EVALUATION AND EXAMINATION; ORDERING TESTS OR PROCEDURES; REFERRING AND COMMUNICATING WITH OTHER HEALTHCARE PROVIDERS; COUNSELING AND EDUCATION OF THE PATIENT/FAMILY/CAREGIVERS; INDEPENDENTLY INTERPRETING RESULTS (TESTS, LABS, PROCEDURES, IMAGING) AND COMMUNICATING AND EXPLAINING RESULTS TO THE PATIENT/FAMILY/CAREGIVERS 3. COORDINATION OF CARE; PREPARING AND PRINTING DISCHARGE INSTRUCTIONS AND ANY EDUCATIONAL MATERIALFOR THE PATIENT/FAMILY/CAREGIVERS. DOCUMENTING CLINICAL INFORMATION IN THE ELECTRONIC MEDICAL RECORD 4. REVIEWING OARRS NEEDED MDM 1) COMPLEXITY: MORE THAN 1 STABLE CHRONIC CONDITION ADDRESSED OR 1 ACUTE ILLNESS ADDRESSED 2)DATA: TESTS INTERPRETED AND OR ORDERED, TOOK INDEPENDENT HISTORY OR RECORDS REVIEWED 3)RISK: MODERATE RISK DUE TO NATURE OF MEDICAL CONDITIONS/COMORBIDITY OR MEDICATIONS ORDERED OR SURGICAL OR PROCEDURE REFERRAL Follow [facility] as [facility] Reason for visit Narrative* Initial Evaluation . S/P R bursectomy/scapulectomy. * Referred by: Dr [facility] Work Phone: Summary Purpose Family History No Family History Records Found Mother Name Dates Details No pertinent family history( V49.89, Z78.9) Status:Active Father Name Dates Details No pertinent family history( V49.89, Z78.9) Status:Active Mother Name Dates Details No pertinent family history( V49.89, Z78.9) Status:Active Father Name Dates Details No pertinent family history( V49.89, Z78.9) Status:Active Mother Name Dates Details No pertinent family history( V49.89, Z78.9) Status:Active Father Name Dates Details No pertinent family history( V49.89, Z78.9) Status:Active Mother Name Dates Details No pertinent family history( V49.89, Z78.9) Status:Active Father Name Dates Details No pertinent family history( V49.89, Z78.9) Status:Active Unknown Family Member Name Dates Details No pertinent family history: Mother, Father(V49.89, Z78.9) Status:Active Unknown Family Member Name Dates Details No pertinent family history: Mother, Father(V49.89, Z78.9) Status:Active Unknown Family Member Name Dates Details No pertinent family history: Mother, Father(V49.89, Z78.9) Status:Active Unknown Family Member Name Dates Details No pertinent family history: Mother, Father(V49.89, Z78.9) Status:Active Unknown Family Member Name Dates Details No pertinent family history: Mother, Father(V49.89, Z78.9) Status:Active Unknown Family Member Name Dates Details No pertinent family history: Mother, Father(V49.89, Z78.9) Status:Active Unknown Family Member Name Dates Details No pertinent family history: Mother, Father(V49.89, Z78.9) Status:Active Unknown Family Member Name Dates Details No pertinent family history: Mother, Father(V49.89, Z78.9) Status:Active Unknown Family Member Name Dates Details No pertinent family history: Mother, Father(V49.89, Z78.9) Status:Active Unknown Family Member Name Dates Details No pertinent family history: Mother, Father(V49.89, Z78.9) Status:Active Unknown Family Member Name Dates Details No pertinent family history: Mother, Father(V49.89, Z78.9) Status:Active Unknown Family Member Name Dates Details No pertinent family history: Mother, Father(V49.89, Z78.9) Status:Active Unknown Family Member Name Dates Details No pertinent family history: Mother, Father(V49.89, Z78.9) Status:Active Unknown Family Member Name Dates Details No pertinent family history: Mother, Father(V49.89, Z78.9) Status:Active Unknown Family Member Name Dates Details No pertinent family history: Mother, Father(V49.89, Z78.9) Status:Active Unknown Family Member Name Dates Details No pertinent family history: Mother, Father(V49.89, Z78.9) Status:Active Unknown Family Member Name Dates Details No pertinent family history: Mother, Father(V49.89, Z78.9) Status:Active Unknown Family Member Name Dates Details No pertinent family history: Mother, Father(V49.89, Z78.9) Status:Active Unknown Family Member Name Dates Details No pertinent family history: Mother, Father(V49.89, Z78.9) Status:Active Unknown Family Member Name Dates Details No pertinent family history: Mother, Father(V49.89, Z78.9) Status:Active Unknown Family Member Name Dates Details No pertinent family history: Mother, Father(V49.89, Z78.9) Status:Active Unknown Family Member Name Dates Details No pertinent family history: Mother, Father(V49.89, Z78.9) Status:Active Unknown Family Member Name Dates Details No pertinent family history: Mother, Father(V49.89, Z78.9) Status:Active Unknown Family Member Name Dates Details No pertinent family history: Mother, Father(V49.89, Z78.9) Status:Active Unknown Family Member Name Dates Details No pertinent family history: Mother, Father(V49.89, Z78.9) Status:Active Unknown Family Member Name Dates Details No pertinent family history: Mother, Father(V49.89, Z78.9) Status:Active Unknown Family Member Name Dates Details No pertinent family history: Mother, Father(V49.89, Z78.9) Status:Active Unknown Family Member Name Dates Details No pertinent family history: Mother, Father(V49.89, Z78.9) Status:Active Unknown Family Member Name Dates Details No pertinent family history: Mother, Father(V49.89, Z78.9) Status:Active Unknown Family Member Name Dates Details No pertinent family history: Mother, Father(V49.89, Z78.9) Status:Active Unknown Family Member Name Dates Details No pertinent family history: Mother, Father(V49.89, Z78.9) Status:Active Unknown Family Member Name Dates Details No pertinent family history: Mother, Father(V49.89, Z78.9) Status:Active Unknown Family Member Name Dates Details No pertinent family history: Mother, Father(V49.89, Z78.9) Status:Active Unknown Family Member Name Dates Details No pertinent family history: Mother, Father(V49.89, Z78.9) Status:Active Unknown Family Member Name Dates Details No pertinent family history: Mother, Father(V49.89, Z78.9) Status:Active Unknown Family Member Name Dates Details No pertinent family history: Mother, Father(V49.89, Z78.9) Status:Active Unknown Family Member Name Dates Details No pertinent family history: Mother, Father(V49.89, Z78.9) Status:Active Unknown Family Member Name Dates Details No pertinent family history: Mother, Father(V49.89, Z78.9) Status:Active Unknown Family Member Name Dates Details No pertinent family history: Mother, Father(V49.89, Z78.9) Status:Active Unknown Family Member Name Dates Details No pertinent family history: Mother, Father(V49.89, Z78.9) Status:Active Unknown Family Member Name Dates Details No pertinent family history: Mother, Father(V49.89, Z78.9) Status:Active Unknown Family Member Name Dates Details No pertinent family history: Mother, Father(V49.89, Z78.9) Status:Active Unknown Family Member Name Dates Details No pertinent family history: Mother, Father(V49.89, Z78.9) Status:Active Unknown Family Member Name Dates Details No pertinent family history: Mother, Father(V49.89, Z78.9) Status:Active Unknown Family Member Name Dates Details No pertinent family history: Mother, Father(V49.89, Z78.9) Status:Active Unknown Family Member Name Dates Details No pertinent family history: Mother, Father(V49.89, Z78.9) Status:Active Unknown Family Member Name Dates Details No pertinent family history: Mother, Father(V49.89, Z78.9) Status:Active Unknown Family Member Name Dates Details No pertinent family history: Mother, Father(V49.89, Z78.9) Status:Active Unknown Family Member Name Dates Details No pertinent family history: Mother, Father(V49.89, Z78.9) Status:Active Unknown Family Member Name Dates Details No pertinent family history: Mother, Father(V49.89, Z78.9) Status:Active Unknown Family Member Name Dates Details No pertinent family history: Mother, Father(V49.89, Z78.9) Status:Active Unknown Family Member Name Dates Details No pertinent family history: Mother, Father(V49.89, Z78.9) Status:Active Unknown Family Member Name Dates Details No pertinent family history: Mother, Father(V49.89, Z78.9) Status:Active Unknown Family Member Name Dates Details No pertinent family history: Mother, Father(V49.89, Z78.9) Status:Active Unknown Family Member Name Dates Details No pertinent family history: Mother, Father(V49.89, Z78.9) Status:Active Unknown Family Member Name Dates Details No pertinent family history: Mother, Father(V49.89, Z78.9) Status:Active Unknown Family Member Name Dates Details No pertinent family history: Mother, Father(V49.89, Z78.9) Status:Active Unknown Family Member Name Dates Details No pertinent family history: Mother, Father(V49.89, Z78.9) Status:Active Unknown Family Member Name Dates Details No pertinent family history: Mother, Father(V49.89, Z78.9) Status:Active Unknown Family Member Name Dates Details No pertinent family history: Mother, Father(V49.89, Z78.9) Status:Active Unknown Family Member Name Dates Details No pertinent family history: Mother, Father(V49.89, Z78.9) Status:Active Unknown Family Member Name Dates Details No pertinent family history: Mother, Father(V49.89, Z78.9) Status:Active Unknown Family Member Name Dates Details No pertinent family history: Mother, Father(V49.89, Z78.9) Status:Active Advance Directives No Advanced Directives Records FoundDocuments on File Type Date Recorded Patient Project Controls Specialist Expl anation Advance Directives and Living Will Documents on File Type Date Recorded Patient Project Controls Specialist Expl anation Advance Directives and Living Will History of Present Illness * Guillermo Pineda MD - 10/13/2019 10:40 AM EST Procedures ELECTROMYOGRAPHY (Nerve conduction/EMG) Report [facility] [place], [place] Brief History: Patient with 1-1/2-year of right neck and shoulder pain with arm numbness. No history of diabetes. Plan: This study is design to evaluate for entrapment neuropathy, median or ulnar neuropathy, radiculopathy, or brachial plexopathy. Procedure indication, side effects, complications, risk and alternatives were explain. Patient agreed to proceed with verbal consent obtain. Patient was instructed toclean the puncture site with soap and water and put some ice pack for bruising. Please request raw data if needed. EMG Summary: The right median and ulnar motor and sensory nerve conduction studies were normal. Theright radial, medial and lateral antebrachial cutaneous sensory nerve conduction studies were also normal. Needle EMG of the tested muscle showed no abnormal spontaneous activity. Normal motor unit action potentials and recruitment patterns were seen. Impression: This is a normal EMG. There is NO clear electrodiagnostic evidence of a right cervical radiculopathy, brachial plexopathy, entrapment neuropathy, median or ulnar neuropathy at this time. Guillermo Pineda MD Diplomate, ABPN, NBPAS Clinical Neurophysiology, Neurology, Vascular Neurology and Sleep Medicine [facility] [place] [place] [phone] Nota bene: Portions of this chart was created using CSS99 voice recognition software. Occasional wrong-word or sound-like substitutions may have occurred due to inherent limitations of the voice recognition software. Please read the chart carefully and recognize, using context, where the substitutions have occurred. documented in this encounter Assessments Diagnosis Numbness Disturbance of skin sensation Chief Complaint Chief Complaint Description Start Date left ring finger pain Preliminary chief co mplaint data, not yet signed by the author as of Reason for Referral Specialty Diagnoses / Procedures Referred By Contac t Referred To Contact Radiology Diagnoses Nodule of right lung Procedures CT chest wo IV contrast Lexie Nguyen, ENGRAVING PLATE MAKER-[employer] [address] [place] [address] Referral ID Status Reason Start Date Expiration Date Visits Requested Visits Authorized [id number] Authorized Perform Procedure 02/21/2023 08/20/2023 1 1 Specialty Diagnoses / Procedures Referred By Contac t Referred To Contact Radiology Diagnoses Chronic neck pain Procedures XR cervical spine complete 4-5 views Lexie Nguyen, TESSIE-SEASONING SPRAYER [address] [place] [address] Referral ID Status Reason Start Date Expiration Date Visits Requested Visits Authorized [id number] Authorized Perform Procedure 02/21/2023 08/20/2023 1 1 Specialty Diagnoses / Procedures Referred By Contac t Referred To Contact Radiology Diagnoses Neck swelling Procedures US head neck soft tissue Lexie Nguyen, ENGRAVING PLATE MAKER-[employer]ING [employer]ER [address] [place] [address] Referral ID Status Reason Start Date Expiration Date Visits Requested Visits Authorized [id number] Authorized Perform Procedure 02/21/2023 08/20/2023 1 1 Additional Source Comments INFORMATION SOURCE (unrecogn ized section and content) DATE CREATED AUTHOR AUTHOR'S ORGANIZ ATION 02/18/2021 [facility] DATE CREATED AUTHOR AUTHOR'S ORGANIZ ATION 05/21/2021 [facility] DATE CREATED AUTHOR AUTHOR'S ORGANIZ ATION 03/04/2022 [facility] DATE CREATED AUTHOR AUTHOR'S ORGANIZ ATION 12/03/2022 [facility] DATE CREATED AUTHOR AUTHOR'S ORGANIZ ATION 12/04/2022 [facility] DATE CREATED AUTHOR AUTHOR'S ORGANIZ ATION 04/07/2023 [facility] DATE CREATED AUTHOR AUTHOR'S ORGANIZ ATION 06/07/2023 [facility] DATE CREATED AUTHOR AUTHOR'S ORGANIZ ATION 07/18/2023 [facility] [place] [facility] Reason for Visit (unrecogniz ed section and content) Reason Comments Ingrown Toenail Bilateral ingrown gr eat toenails. Reason Comments Nail Problem Bilateral nail surge ry. Reason For Visit Description Start Date New/Est - 1st visit with physician 09/28 Preliminary reason f or visit data, not yet signed by the author as of left ring finger pain Reason Comments Patient Question Reason Comments Consult Lung nodule Reason Comments Breast Problem Reason Comments Follow-up DISCUSS LABS DONE AT [facility] [place] RT SIDE ON NECK Reason Comments Abdominal Cramping 4 days Diarrhea X 3 days associated with a fever Reason Comments Diarrhea Works at [employer] nguyen has been confirmed cases of C-Diff, pt has had diarrhea x 1 week. Care Teams (unrecognized sec tion and content) Plastics Engineer Relationship Specialty Start Date End Date Seb Wild January, [employer]ING [employer]ER [address] [place] [address] PCP - General Nurse Practitioner 10/03/19 Plastics Engineer Relationship Specialty Start Date End Date Seb Wild [address] [facility] [place] [address] PCP - General Family Medicine 06/14/22 Plastics Engineer Relationship Specialty Start Date End Date Seb Wild, ENGRAVING PLATE MAKER.[employer]ING [employer]ER [address] [place] [address] PCP - General Family Medicine 06/14/22 Plastics Engineer Relationship Specialty Start Date End Date Beverley Phillip, ENGRAVING PLATE MAKER-[employer]ING [employer]ER [address] [address] PCP - MMO ACO PCP 05/27/22 Lexie Nguyen, ENGRAVING PLATE MAKER-[employer]ING [employer]ER [address] [place] [address] PCP - General Internal Medicine 01/10/23 Plastics Engineer Relationship Specialty Start Date End Date Lexie Nguyen, ENGRAVING PLATE MAKER-[employer]ER [address] [place] [address] PCP - General Internal Medicine 01/10/23 Lexie Nguyen, ENGRAVING PLATE MAKER-[employer]ER [address] [place] [address] PCP - MMO ACO PCP 01/25/23 Plastics Engineer Relationship Specialty Start Date End Date Lexie Nguyen, ENGRAVING PLATE MAKER-[employer]ING [employer]ER [address] [place] [address] PCP - General Internal Medicine 01/10/23 Lexie Nguyen, ENGRAVING PLATE MAKER-SEASONING SPRAYER [address] [place] [address] [phone] (work) PCP - MMO ACO PCP 01/25/23 Source Comments (unrecognize d section and content) In the event this informatio n is protected by the Federal Confidentiality of Alcohol and Drug Abuse Patient Records regulations: The Federal rules restrict any use of the information to criminally investigate or prosecute any alcohol or drug abuse patient.[facility] Hospital[facility] the event this information is protected by the Federal Confidentiality of Alcohol and Drug Abuse Patient Records regulations: The Federal rules restrict any use of the information to criminally investigate or prosecute any alcohol or drug abuse patient.[facility] Hospital[facility] the event this information is protected by the Federal Confidentiality of Alcohol and Drug Abuse Patient Records regulations: The Federal rules restrict any use of the information to criminally investigate or prosecute any alcohol or drug abuse patient.[facility] <item> Privacy Markings (unrecogniz ed section and content) Section Author: Delores Braxton PROHIBITION ON REDISCLOSURE OF CONFIDENTIAL INFORMATION This notice accompanies a disclosure of information concerning a client made to you with the consent of such client. FOR RECORDS PERTAINING TO PATIENTS WHO ARE OR HAVE BEEN ENROLLED IN A CHEMICAL DEPENDENCY/SUBSTANCEABUSE PROGRAM, SOME INFORMATION MAY BE OMITTED. This clinical summary was aggregated from multiple sources. Caution should be exercised in using it in the provision of clinical care. This summary normalizes information from multiple sources, and as a consequence, information in this document may materially change the coding, format and clinical context of patient data. In addition, data may be omitted in some cases. CLINICAL DECISIONS SHOULD BE BASED ON THE PRIMARY CLINICAL RECORDS. [facility] [employer] [facility]. provides no warranty or guarantee of the accuracy or completeness of information in this document.
== END | disposition home or self-care (01) ==
LOC: LABSPEC 16:41
PROVIDERS: PCP Nurse Practitioner Family; Visit Provider Nurse Practitioner Women's Health
DX: N89.8 Other specified noninflammatory disorders of vagina (principal)
CPT/HCPCS: 87070; 87077; 87205

== ENCOUNTER → 2023-09-13 | Outpatient (CLI) | payer OTHER, SELFPAY ==
--- OUTSIDE RECORDS SUMMARY | 2023-09-13 15:06 | XMS RPT_ITS | CCD ---
Author Name Unknown Address [id number] [place] [address] Organization [facility] Care Team Providers Care Auto Emissions Technician Name Role Phone Jeanna Pang [facility]ending [facility] Unavailab Jeanna Rodriguez Admitting Unavailable Missael Gonzales Attending Unavailable [facility] January Primary Care Unavailab Missael Whalen Admitting Unavailable Missael Gonzales Attending Unavailable [facility] January [facility] Unavailab Missael Whalen Admitting Unavailable [facility] January Att[facility]ab [facility] Unavailab le [facility] January Admitting Unavailab josey [facility] Shari Primary Care Provider Seb Wild Unavailable Unavailable Jeanna Page Unavailable Unavailable [place] Unavailable Unavailable Herman Shaffer Unavailable Unavailable Lawrence Cunha Unavailable Unavailable Seb Wild Unavailable Unavailable Unavailable [facility] Primary [facility] Provider BRETT BURGOS JR. Attending Unavailable [facility] Primary Care Unavailab BRETT Askew JR. Attending Unavailable [facility] Primary Care Unavailab Zach Esquivel MD Unavailable Unavailable Primary Care Provider Unavailabl e Junito [facility] Primary Care Provider Beverley Phillip K Unavailable Beverley Phillip Unavailable Unavailable Yoav, Makayla Unavailable Unavailable Caleb Hoff Unavailable Unavailable [place] [employer].FINDING FASTENER, Seb Primary Care Provider JENNIFER PRYOR Attending Unavailable HARPSTER, SEB Primary Care Unavailable Phillip EDITOR [employer]INDING FASTENER, Beverley K Unavailable Patrick EDITOR [employer]-FINDING FASTENER, Lexie D Primary Care Provider Patrick, Ms. Lexie Gabby Primary Care Unavailab [...] Chris, Dr. Barrett Olson Attending Unavaila ble [place], Ms. Seb Shari Primary Care Unava ilable Chris, Dr. Barrett Olson Attending Unavaila ble [place], Ms. Seb Shari Primary Care Unava ilable [...] Chris, Dr. Barrett Olson Attending Unavaila ble [place], Ms. Seb Shari Primary Care Unava ilable Phillip, Ms. Beverley Dalia Primary Care Unavailable Luis Eduardo, Dr. Caleb Lemos Attending Unavail able Chris, Dr. Barrett Olson Attending Unavaila ble [place], Ms. Seb Shari Primary Care Unava ilable [...] Chris, Dr. Barrett Olson Attending Unavaila ble [place], Ms. Seb Shari Primary Care Unava ilable [...] Lemos Attending Unavail able Phillip, Ms. Beverley Dlaia Primary Care Unavailable Chris, Dr. Barrett Olson Attending Unavaila ble [place], Ms. Seb Shari Primary Care Unava ilable [...] [PLANT POLLENS] allergy to substance hay fever [facility] Work Phone: Medications Current Medications Medication Drug Class(es) Dates Sig (Normalized) Sig (Original) [id number] 200 actuat albuterol 0.09 mg/actuat metered dose [...] 09:09-0400 Body height 154.9 cm German Olivares APRNApiphany Work Phone: [facility] 06-07-2023 09:09-0400 Body mass index (BMI) [Ratio] 27.44 kg/m2 German Olivares APRN-FINDING FASTENER Work Phone: [facility] 06-07-2023 09:09-0400 Body temperature 98.2 [degF] German Olivares APRN-FINDING FASTENER Work Phone: [facility] 06-07-2023 09:09-0400 Body weight 65.86 kg German Olivares APRN-FINDING FASTENER Work Phone: [facility] 06-07-2023 09:09-0400 Diastolic blood pressure 75 mm[Hg] German Olivares APRN-FINDING FASTENER Work Phone: [facility] 06-07-2023 09:09-0400 Heart rate 96 /min German Olivares APRN-FINDING FASTENER Work Phone: [facility] 06-07-2023 09:09-0400 Respiratory rate 16 /min German Olivares APRN-FINDING FASTENER Work Phone: [facility] 06-07-2023 09:09-0400 SaO2% (BldA) [Mass fraction] 98 % German Olivares EDITOR [employer]FINDING FASTENER Work Phone: [facility] 06-07-2023 09:09-0400 Systolic blood pressure 107 mm[Hg] German Olivares EDITOR [employer]-FINDING FASTENER Work Phone: [facility] 02-21-2023 10:23-0400 Body height 154.9 cm Lexie Nguyen EDITOR F[employer]FINDING FASTENER Work Phone: [facility] 02-21-2023 10:23-0400 Body mass index (BMI) [Ratio] 28.34 kg/m2 Lexie Nguyen EDITOR [employer]FINDING FASTENER Work Phone: [facility] 02-21-2023 10:23-0400 Body weight 68.04 kg Lexie Nguyen EDITOR [employer]INDING FASTENER Work Phone: [facility] 02-21-2023 10:23-0400 Diastolic blood pressure 74 mm[Hg] Lexie Nguyen EDITOR [employer]FINDING FASTENER Work Phone: [facility] 02-21-2023 10:23-0400 Heart rate 70 /min Lexie Nguyen EDITOR [employer]FINDING FASTENER Work Phone: [facility] 02-21-2023 10:23-0400 Systolic blood pressure 106 mm[Hg] Lexie Nguyen EDITOR [employer]FINDING FASTENER Work Phone: [facility] 06-16-2022 08:06-0400 Body height 154.9 cm Jennifer Pryor MD Work Phone: [facility] 06-16-2022 08:06-0400 Body weight 113.67 kg Jennifer Pryor MD Work Phone: [facility] 06-16-2022 08:06-0400 Diastolic blood pressure 74 mm[Hg] Jennifer Pryor MD Work Phone: [facility] 06-16-2022 08:06-0400 Heart rate 85 /min Jennifer Pryor MD Work Phone: [facility] 06-16-2022 08:06-0400 Respiratory rate 12 /min Jennifer Pryor MD Work Phone: [facility] 06-16-2022 08:06-0400 SaO2% (BldA) [Mass fraction] 100 % Jennifer Pryor MD Work Phone: [facility] 06-16-2022 08:06-0400 Systolic blood pressure 106 mm[Hg] Jennifer Pryor MD Work Phone: [facility] 03-03-2022 13:44-0400 Body height 154.94 cm Seb Wild Work Phone: [facility] 205 DO Work Phone: 03-03-2022 13:44-0400 Body mass index (BMI) [Ratio] 28.91 kg/m2 Seb Wild Work Phone: [facility] 205 DO Work Phone: 03-03-2022 13:44-0400 Body surface area Derived from formula 1.69 m2 Seb Wild Work Phone: [facility] 205 DO Work Phone: 03-03-2022 13:44-0400 Body weight 69.4 kg Seb Wild Work Phone: [facility] 205 DO Work Phone: 03-03-2022 13:44-0400 Diastolic blood pressure 68 mm[Hg] Seb Wild Work Phone: [facility] 205 DO Work Phone: 03-03-2022 13:44-0400 Heart rate 80 /min Seb Wild Work Phone: [facility] 205 DO Work Phone: 03-03-2022 13:44-0400 Systolic blood pressure 102 mm[Hg] Seb Wild Work Phone: [facility] 205 DO Work Phone: 01-25-2022 15:29-0400 Body height 154.94 cm Seb Wild Work Phone: [facility] Work Phone: 01-25-2022 15:29-0400 Body mass index (BMI) [Ratio] 28.24 kg/m2 Seb Wild Work Phone: [facility] Work Phone: 01-25-2022 15:29-0400 Body surface area Derived from formula 1.67 m2 Seb Wild Work Phone: [facility] Work Phone: 01-25-2022 15:29-0400 Body weight 67.79 kg Seb Wild Work Phone: [facility] Work Phone: 01-25-2022 15:29-0400 Diastolic blood pressure 66 mm[Hg] Seb Wild Work Phone: [facility] Work Phone: 01-25-2022 15:29-0400 Heart rate 72 /min Seb Wild Work Phone: [facility] Work Phone: 01-25-2022 15:29-0400 SaO2% (BldA) [Mass fraction] 100 % Seb Wild Work Phone: [facility] Work Phone: 01-25-2022 15:29-0400 Systolic blood pressure 90 mm[Hg] Seb Wild Work Phone: [facility] Work Phone: 06-27-2021 15:37-0400 Body height 154.94 cm Seb Wild Work Phone: [facility] Work Phone: 06-27-2021 15:37-0400 Body mass index (BMI) [Ratio] 29.31 kg/m2 Seb Wild Work Phone: [facility] Work Phone: 06-27-2021 15:37-0400 Body surface area Derived from formula 1.7 m2 Seb Wild Work Phone: [facility] Work Phone: 06-27-2021 15:37-0400 Body temperature 98.4 [degF] Seb Wild Work Phone: [facility] Work Phone: 06-27-2021 15:37-0400 Body weight 70.37 kg Seb Wild Work Phone: [facility] Work Phone: 06-27-2021 15:37-0400 Diastolic blood pressure 60 mm[Hg] Seb Wild Work Phone: [facility] Work Phone: 06-27-2021 15:37-0400 Heart rate 77 /min Seb Wild Work Phone: [facility] Work Phone: 06-27-2021 15:37-0400 SaO2% (BldA) [Mass fraction] 99 % Seb Wild Work Phone: [facility] Work Phone: 06-27-2021 15:37-0400 Systolic blood pressure 108 mm[Hg] Seb Ericka Wild Work Phone: [facility] Work Phone: 05-20-2021 09:46-0400 Body temperature 97.2 [degF] Brett Leo Jr., DPM Work Phone: [facility] 05-20-2021 09:46-0400 Diastolic blood pressure 63 mm[Hg] Brett Leo Jr., DPM Work Phone: [facility] 05-20-2021 09:46-0400 Heart rate 83 /min Brett Leo Jr., DPM Work Phone: [facility] 05-20-2021 09:46-0400 Systolic blood pressure 100 mm[Hg] Brett Leo Jr., DPM Work Phone: [facility] 05-18-2021 15:26-0400 Body temperature 98.1 [degF] Brett Leo Jr., DPM Work Phone: [facility] 05-18-2021 15:26-0400 Diastolic blood pressure 74 mm[Hg] Brett Leo Jr., DPM Work Phone: [facility] 05-18-2021 15:26-0400 Heart rate 93 /min Brett Leo Jr., DPM Work Phone: [facility] 05-18-2021 15:26-0400 Systolic blood pressure 122 mm[Hg] Brett Leo Jr., DPM Work Phone: [facility] 04-21-2021 16:08-0400 Body height 154.94 cm Seb Wild [facility] Work Phone: 04-21-2021 16:08-0400 Body mass index (BMI) [Ratio] 28.81 kg/m2 Seb Ericka [place] Work Phone: [facility] Work Phone: 04-21-2021 16:08-0400 Body surface area Derived from formula 1.68 m2 Seb Barnett [place] Work Phone: [facility] Work Phone: 04-21-2021 16:08-0400 Body temperature 97.6 [degF] Seb Ericka [place] Work Phone: [facility] Work Phone: 04-21-2021 16:08-0400 Body weight 69.17 kg Seb Ericka [place] Work Phone: [facility] Work Phone: 04-21-2021 16:08-0400 Diastolic blood pressure 60 mm[Hg] Seb J [place] Work Phone: [facility] Work Phone: 04-21-2021 16:08-0400 Heart rate 62 /min Seb J [place] Work Phone: [facility] Work Phone: 04-21-2021 16:08-0400 SaO2% (BldA) [Mass fraction] 98 % Seb J [place] Work Phone: [facility] Work Phone: 04-21-2021 16:08-0400 Systolic blood pressure 98 mm[Hg] Seb Barnett [place] Work Phone: [facility] Work Phone: 03-31-2021 12:42-0400 Body height 154.94 cm Seb Wild Work Phone: [facility] Work Phone: 03-31-2021 12:42-0400 Body mass index (BMI) [Ratio] 28.64 kg/m2 Seb Wild Work Phone: [facility] Work Phone: 03-31-2021 12:42-0400 Body surface area Derived from formula 1.68 m2 Seb Wild Work Phone: [facility] Work Phone: 03-31-2021 12:42-0400 Body temperature 97.7 [degF] Seb Wild Work Phone: [facility] Work Phone: 03-31-2021 12:42-0400 Body weight 68.75 kg Seb Wild Work Phone: [facility] Work Phone: 03-31-2021 12:42-0400 Diastolic blood pressure 76 mm[Hg] Seb Wild Work Phone: [facility] Work Phone: 03-31-2021 12:42-0400 Heart rate 80 /min Seb Wild Work Phone: [facility] Work Phone: 03-31-2021 12:42-0400 Systolic blood pressure 132 mm[Hg] Seb Ricciter Work Phone: [facility] Work Phone: 02-23-2020 17:23-0400 BMI (Body Mass [...] [facility] Work Phone: NEGATED: Highlighted [id number] 15:37-0500 Body height 154.94 cm Gina Pavick AT [facility] Work Phone: NEGATED: Highlighted [id number] 15:37-0500 Body height 155 cm Gina Pavick AT [facility] Work Phone: NEGATED: Highlighted [id number] 15:37-0500 Body mass index (BMI) [Ratio] 28.82 kg/m2 Gina Pavick AT [facility] Work Phone: NEGATED: Highlighted [id number] 15:37-0500 Body temperature 97.2 [degF] Gina Pavick AT [facility] Work Phone: NEGATED: Highlighted [id number] 15:37-0500 Body temperature 97.16 [degF] Gina Pavick AT [facility] Work Phone: NEGATED: Highlighted [id number] 15:37-0500 Body weight 68.95 kg Gina Pavick AT [facility] Work Phone: NEGATED: Highlighted [id number] 15:37-0500 Body weight 69 kg Gina Pavick AT [facility] Work Phone: Encounters Encounter Date Encounter Type Care Provider Facility Start: 07-13-2023 End: 07-14-2023 ambulatory LEXIE Nguyen [facility] Start: 06-07-2023 End: 06-08-2023 ambulatory LEXIE Nguyen [facility] Start: 06-07-2023 End: 06-07-2023 Office outpatient visit 15 minutes German Olivares APRN-FINDING FASTENER Work Phone: [facility] Procedures Date Procedure Procedure [...] - S ca or Plasma Lexie Hilarioley EDITOR [employer]-FINDING FASTENER Work Phone: Start: 03-22-2022 Microscopic observat ion [Identifier] in Cervix by Cyto stain Lexie Nguyen EDITOR [employer]FINDING FASTENER Work Phone: Start: 09-28-2021 End: 09-28-2021 BP scrn no perf at interval Zach coburn MD Work Phone: Start: 09-28-2021 End: 09-28-2021 Calc BMI abv up alexis f/u Zach anderson MD Work Phone: Start: 09-28-2021 End: 09-28-2021 Current tobacco non-user cad cap copd pv dm Zach oCtto MD Work Phone: Start: 09-28-2021 End: 09-28-2021 [...] f 2) Zoster Vaccines (1 of 2) [facility] Start: 01-12-2028 Lipid panel Lipid Panel [facility] Start: 03-22-2025 Screening for malign ant neoplasm of cervix [facility] Start: 02-22-2024 End: 02-22-2024 Thyrotropin [Units/volume] in Serum or Plasma Thyroid Stimulating Hormone Lab Routine Abnormal TSH Expected: 02/22/2024 (Approximate), Expires: 02/22/2024 [facility] Work Phone: Immunizations Immunization Date Immunization Notes Care Provider Bhavna thompson 06-17-2021 Pfizer-BioNTech COVI D-19 Vacc 30 MCG/0.3ML Intramuscular Suspension Seb Wild Work Phone: [facility] Work Phone: Payers Date Payer Category Payer Unknown [employer]PER[employer] PPO xxxxxxxxxxxx 2019-Present xxxxxxxxxxxx [id number] 2019 Unknown [employer] PPO [id number] 2019-Present [phone] [address] [place] [address] [id number] 2019 Unknown [id number] 2018 Unknown 1994 Unknown [id number] 2.16.840.1.739632.3.579.2.717 1994 Unknown [id number] 2.16.840.1.367014.3.579.2.717 1994 Unknown [id number] 2.16.840.1.151943.3.579.2.717 1994 Unknown [id number] 2.16.840.1.706955.3.579.2.717 1994 Unknown [id number] 2.16.840.1.266809.3.579.2.903 1994 Unknown [id number] 2.16.840.1.141009.3.579.2.903 1994 Unknown [id number] 2.16.840.1.652820.3.579.2.106 9 1994 Unknown [id number] 2.16.840.1.616691.3.579.2.106 9 1994 Unknown [id number] 2.16.840.1.128167.3.579.2.106 9 1994 Unknown [id number] 2.16.840.1.219921.3.579.2.106 9 1994 Unknown [id number] 2.16.840.1.878403.3.579.2.106 9 1994 Unknown [id number] 2.16.840.1.701955.3.579.2.106 9 1994 Unknown [id number] 2.16.840.1.770159.3.579.2.106 9 1994 Unknown [id number] 2.16.840.1.297917.3.579.2.106 9 1994 Unknown [id number] 2.16.840.1.619792.3.579.2.106 9 1994 Unknown [id number] 2.16.840.1.119297.3.579.2.106 9 1994 Unknown [id number] 2.16.840.1.427341.3.579.2.106 9 1994 Unknown [id number] 2.16.840.1.817760.3.579.2.106 9 1994 Unknown [id number] 2.16.840.1.751049.3.579.2.106 9 1994 Unknown [id number] 2.16.840.1.784603.3.579.2.106 9 1994 Unknown [id number] 2.16.840.1.813015.3.579.2.106 9 1994 Unknown [id number] 2.16.840.1.390970.3.579.2.106 9 1994 Unknown [id number] 2.16.840.1.222608.3.579.2.106 9 1994 Unknown [id number] 2.16.840.1.147546.3.579.2.106 9 1994 Unknown [id number] 2.16.840.1.958504.3.579.2.106 9 1994 Unknown [id number] 2.16.840.1.991642.3.579.2.106 9 1994 Unknown [id number] 2.16.840.1.948026.3.579.2.106 9 1994 Unknown [id number] 2.16.840.1.808577.3.579.2.106 9 1994 Unknown [id number] 2.16.840.1.439414.3.579.2.106 9 1994 Unknown [id number] 2.16.840.1.018331.3.579.2.106 9 1994 Unknown [id number] 2.16.840.1.088634.3.579.2.106 9 1994 Unknown [id number] 2.16.840.1.105331.3.579.2.106 9 1994 Unknown [id number] 2.16.840.1.162056.3.579.2.106 9 1994 Unknown [id number] 2.16.840.1.671187.3.579.2.106 9 1994 Unknown [id number] 2.16.840.1.545657.3.579.2.106 9 1994 Unknown [id number] 2.16.840.1.475320.3.579.2.106 9 1994 Unknown [id number] 2.16.840.1.994062.3.579.2.106 9 1994 Unknown [id number] 2.16.840.1.241026.3.579.2.106 9 1994 Unknown [id number] 2.16.840.1.086571.3.579.2.106 9 1994 Unknown [id number] 2.16.840.1.450928.3.579.2.106 9 1994 Unknown [id number] 2.16.840.1.897615.3.579.2.106 9 1994 Unknown [id number] 2.16.840.1.511536.3.579.2.106 9 1994 Unknown [id number] 2.16.840.1.838693.3.579.2.106 9 1994 Unknown [id number] 2.16.840.1.267929.3.579.2.106 9 1994 Unknown [id number] 2.16.840.1.979627.3.579.2.124 4 1994 Unknown [id number] 2.16.840.1.786599.3.579.2.124 4 1994 Unknown [id number] 2.16.840.1.859964.3.579.2.124 4 1994 Unknown [id number] 2.16.840.1.537310.3.579.2.124 4 1994 Unknown [id number] 2.16.840.1.669291.3.579.2.124 4 1994 Unknown [id number] 2.16.840.1.835691.3.579.2.124 5 1994 Unknown [id number] 2.16.840.1.490268.3.579.2.124 5 1994 Unknown [id number] 2.16.840.1.075913.3.579.2.124 5 1994 Unknown [id number] 2.16.840.1.771141.3.579.2.124 5 1994 Unknown [id number] 2.16.840.1.857179.3.579.2.124 5 Social History Date Type Detail Facility Start: 09-28-2021 End: 09-28-2021 Tobacco smoking status MAIS Unknown if ever smoked [facility] Start: 1995 Sex Assigned At Not on file [facility] Start: 02-21-2023 End: 06-05-2023 No alcohol use No alcohol use [facility] Start: 05-18-2021 End: 01-10-2023 Tobacco smoking status NHIS Never smoked tobacco [facility] Start: 05-18-2021 End: 01-10-2023 Tobacco use and exposure Smokeless tobacco non-user [facility] Start: 05-18-2021 End: 06-07-2023 Alcohol intake Lifetime non-drinker (finding) [facility] Start: 06-06-2022 End: 06-07-2023 Exposure to SARS-CoV-2 (event) Not sure [facility] Start: 02-21-2023 End: 06-05-2023 Tobacco use panel [facility] Start: 05-26-2023 End: 06-05-2023 Exposure to SARS-CoV-2 (event) Unable to assess [facility] Work Phone: NEGATED: Highlighted row - - [facility] Work Phone: NEGATED: Highlighted rowStart: 09-28-2021 End: 09-28-2021 Employment detail Employment detail [facility] Work Phone: Functional Status Date Assessment Result Facility NEGATED: Highlighted row Functional performance Functional status health issues are not documented Disease [facility] Work Phone: Mental Status Date Assessment Result Facility NEGATED: Highlighted row Cognitive function [Interpretation] Cognitive status health issues are not documented Disease [facility] Work Phone: Clinical Notes 11-03-2020 to 06-07-2023 German Olivares, EDITOR [employer]-[facility] - 06/07/2023 9:05 AM Alicia Nguyen, EDITOR [employer]-[facility] - 02/21/2023 10:20 AM EDTTelephone Encounter - Lexie Montgomery APRN.[facility] - 11/09/2022 12:15 PM EDT Note [...] Documentation Review Audit Reviewed by KENZIE KRAFT (Travel Coordinator) on 06/07/23 at 0910 Medication Order Taking? Sig Documenting Provider Last Dose Status ergocalciferol (Vitamin D-2) 1.25 MG (22192 UT) capsule [id number] No Take 1 capsule (50,000 Units) by mouth 1 (one) time per week. Historical Provider, Not Taking Active levocetirizine (Xyzal) 5 mg tablet [id number] No Take 1 tablet (5 mg) by mouth once daily in the evening. Patient not taking: Reported on 06/07/2023 MARILOU Flowers Not Taking Active metroNIDAZOLE (Flagyl) 500 mg tablet [id number] No Take 1 tablet (500 mg) by [...] or any new concerns. German Olivares CNP [facility] [phone] documented in this encounter [facility] Work Phone: 02-21-2023 History of Presen t illness Narrative Subjective Patient ID: Abdiel Carranza is a 27 y.o. female who presents for Follow-up (DISCUSS LABS DONE AT PS[facility] IN [place] AND [place] RT SIDE ON NECK). HPI: Presents today for C/O RIGHT NECK SWELLING X SEVERAL MONTHS modifying factors consists of HAS CHRONIC SHOULDER AND NECK PAIN associated symptoms consist of TENDER prior treatment consists of medication DRY NEEDLING TSH LEVEL 0.63 2 WEEKS AGO. LAB DONE BY [facility]. WILL RECHECK LAB LUNG NODULE- LAST CT [...] up as before documented in this encounter [facility] Work Phone: 11-09-2022 Miscellaneous Notes Teresa Baeza. This came to the [facility] pool. This may have landed in the wrong place? Please call with any questions. [phone] Lexie ZAMARRIPA Patient called requesting to schedule with Jatinder KATIE for a second opinion for Right breast pain. She is currently scheduled to be seen on 11/29/22. Please notify the patient if additional intake is required by the breast center prior to her appointment. 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 Patient does not plan on returning to [place] for suture removal. There are 4 total [...] visit tomorrow. Theo (more content not included)... [facility] 09-11-2022 History of Presen t illness Narrative [...] range of motion/joint mobility and strength. [facility] Work Phone: 06-16-2022 Note HNO ID: [id number] Author: Jennifer Pryor MD Service: ? Author Type: Physician Type: Progress Notes Filed: 06/16/2022 12:43 PM Note Text: . Res[facility] [place] Note Patient name: Abdiel Carranza PCP: Seb [...] Diagnostic Studies: Chest CT without contrast 02/23/2022 [facility]: I personally reviewed the images as [...] further follow-up needed Jennifer Pryor MD [facility] 06-16-2022 History of Presen t illness Narrative Images from the original note were not included. . Res[facility] [place] Note Patient name: Abdiel Carranza PCP: Seb [...] Diagnostic Studies: Chest CT without contrast 02/23/2022 [facility]: I personally reviewed the images as [...] further follow-up needed Jennifer Pryor MD [facility] documented in this encounter [facility] 06-13-2022 Miscellaneous Notes Patient wanting to schedule a new patient consult with Dr. Pryor. Patient had CT at [facility] (she has disc and reports) stating she had a nodule on her R lung along with a swollen lymph node. Please advise and contact patient at number listed. documented in this encounter [facility] 05-09-2022 Note Therapy Diagnosis Assessed Snapping scapula [...] The patient i (more content not included)... [facility] 02-09-2022 History of Presen t illness Narrative [...] range of motion/joint mobility and strength. [facility] Work Phone: 02-09-2022 Reason for visit Narrative Initial Evaluation, Post-Op R shoulder endoscopic scapular bursectomy and decompression 02/09/2022 . R shoulder endoscopic scapular bursectomy and decompression 02/09/2022.Referred by: Dr. Perez [facility] Work Phone: [facility] Work Phone: 1(215) 547-826209-24-2021 Instructions* Patient Instructions* ANUPAM GaldamezOLOGIST - 05/20/2021 [...] may also take aspirin, Tylenol or other uadi-ioe-dyyllyi pain relievers as directed on the package. [...] appointment with the doctor. documented in this [id number] History of Present illness Narrative* Brett Burgos [...] where the nail was split with an Mosotho anvil distally to approximately 3 mm off [...] where the nail was split with an Mosotho anvil distally to approximately 3 mm off [...] one week for f/u documented in this [id number] History of Present illness Narrative* Brett Burgos [...] Friends and Family: Not on file Attends [employer]: Not on file Active Member of [...] waxing and waning character. documented in this [id number] NotePROCEDURE DETAILS Preoperative Diagnosis: Scapulothoracic bursitis of right shoulder Postoperative Diagnosis: Scapulothoracic bursitis of right shoulder Surgeon: Wesley Coburn Resident/Fellow/Other Counter Intelligence Agent: Tamir George Procedure: Right Shoulder Scapulothoracic Bursectomy [...] she was taken the operating room center [facility]. We performed a huddle. Confirmed right [...] Note, Chart Review, Note Completion Tiffanie Jett (EDITOR FARM JOURNAL-FINDING FASTENER) (Signed 09-Feb-2021 14:00) Authored: Post-Operative Note, Chart Review, Note Completion Last Updated: 09-Feb-2021 17:33 by Wesley Coburn)[facility] 02-09-2021 History of Present illness NarrativeRight shoulder scapulothoracic bursectomy on 02/09/21 for bursitis.[facility]Gzmbvog[facility]arp[facility] [address] Work Phone: [phone] 925-361606-16-2021 History of Present illness Narrative* ABDIEL CARRANZA [...] daily home therapyfor elbow, wrist and hand. [facility]-Drjvcboogaej-Vtvlzp [address] Work Phone: 1(370) 250-590606-16-2021 History of Present illness Narrative* S/P R [...] range of motion/joint mobility and strength. [facility] Work Phone: 1(939) 261-232606-16-2021 History of Present illness Narrative* ABDIEL CARRANZA [...] that the shoulder pain has improved some. [facility]Zrhvdymijcdp[facility] [address] Work Phone: 1([phone] 439-851706-16-2021 History of Present illness Narrative* ABDIEL CARRANZA [...] that the shoulder pain has improved some. BZ-Qntiqpiyjdaz[facility] [address] Work Phone: 1([phone]) 211-881706-16-2021 History of Present illness Narrative* ABDIEL CARRANZA [...] been able to sleep through the night. [facility] [address] DO Work Phone: 1(973) 695-828106-16-2021 NoteHistory & Physical Reviewed: /Lactating: Are You [...] History & Physical Reviewed, Consent Tiffanie Jett (EDITOR FARM JOURNA[employer]-FINDING FASTENER) (Signed 09-Feb-2021 10:52) Authored: History & Physical Reviewed, Consent Last Updated: 09-Feb-2021 16:22 by Wesley Coburn) References: 1. Data Referenced From Patient Profile - Preop v2 09-Feb-2021 09:26[facility]05-04[facility] History of Present illness NarrativePt presents to office c/o of worsening dry cough the past few weeks. She states the cough is worse at night and she has dyspnea on exertion and while coughing. She is in the process of remodeling herhome and has been sanding and working with [employer]. She has been treating her cough with [...] asthma, nasal congestion, sore throat, or ear pain.[facility] Work Phone: 1([phone] 110-108303-17-2021 History of Present illness NarrativeShe presents for [...] her other arm. This arm has had surgery.[facility] Work Phone: 1([phone]) 622-400803-10-2021 History of Present illness NarrativePatient was identified by name and date. IASTM/STM okayed to add to POC per physical therapist consult and completed to reduce soft tissue restrictions at R upper cervical musculature.After manual therapy noted pain level at neck and R scap 3/10. She completed all therex without c/o. [facility] Work Phone: Evaluation note* Diagnosis Ingrown nail of great toe of left foot- Primary Ingrown nail of great toe of right foot [facility] Diagnosis Ingrown nail of great toe of left foot- Primary Ingrown nail of great toe of right foot documented [facility] noteThere may be information available, but it has not been provided by the sender.[facility] [place] [facility] Work Phone: Evaluation note* Diagnosis Lung nodules- Primary Other nonspecific abnormal finding of lung field [facility] Neck swelling- Primary Swelling, mass, or lump in head and neck Abnormal TSH Chronic neck pain Cervicalgia Nodule of right lung Other diseases of lung, not elsewhere classified documented in this encounter [facility] Work Phone: Evaluation note* Diagnosis Acute gastroenteritis- Primary Other and unspecified noninfectious gastroenteritis and colitis Diarrhea, unspecified type documented in this encounter [facility] Work Phone: Evaluation note* Diagnosis Diarrhea, unspecified type- Primary documented in this encounter [facility] Work Phone: History of Present illness Narrative* ABDIEL RYAN is a pleasant 25 year old ytge-jxbd-oeebhdle 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 This has been bothering her for over 2 years. She has recently completed 7 weeks of physical therapy and dry needling which provided some relief but it was not sustained. She also saw the [facility] and was told that her pain was [...] I signed and scanned into the charttoday. 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 This has been bothering her for over 2 years. She has recently completed 7 weeks of physical therapy and dry needling which provided some relief but it was not sustained. She also saw the [facility] and was told that her pain was [...] I signed and scanned into the charttoday. 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 This has been bothering her for over 2 years. She has recently completed 7 weeks of physical therapy and dry needling which provided some relief but it was not sustained. She also saw the [facility] and was told that her pain was [...] all reviewed and are as per the [place] [facility] history questionnaire form that I signed and scanned into the charttoday. [facility] [address] Work Phone: History of Present illness NarrativeTightness noted R shoulder IR. no c/o increased pain with ther ex and manual therapy. Pt. entered facility with sling donned. Reviewed HEP and how often she should wear her sling at home. [facility] Work Phone: History of Present illness Narrative* [...] complete today's treatment with some difficulty. [facility] Work Phone: History of Present illness NarrativePatient was identified by name and date. IASTM/STM completed to reduce soft tissue restrictions at R side lower and upper cervical musculature. Consulted physical therapist Luanne Mario for DN. She was able to demo improved R shoudler and cervical ROM after manual therapy. [facility] Work Phone: History of Present illness NarrativePatient identity confirmed today with name/. emphasized R pec min release today; also stretch the R GH jt into IR; modified exercise to work through th surgical area previous to STW; the R pec minis tight and tender.[facility] [place] Work Phone: History of Present illness NarrativePatient identity confirmed today with name/. Emphasized scapular control with postural exercises. Trialed thermostim today to address tissue restriction in UT, parascapular muscles and pec, decreased tissue restriction noted at end of session. PT Tre performed DN on patient at end of session.[facility] Work Phone: History of Present illness NarrativePatient was identified by name and date. IASTM/STM completed to reduce soft tissue restrictions at R upper and lower cervical musculature. She was able to progress her program and added prone unweighted scapular stabilization exercises with quick fatigue.[facility] [place] Work Phone: History of Present illness NarrativeShe presents today for follow up on depression and anxiety. She is feeling much better. She does not want to be on the medication forever. We discussed possibly trying to get off of it on [place] break. 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 She is feeling much better. She does not want to be on the medication forever. We discussed possibly trying to get off of it on [place] break. 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 Denies any pain. [facility] Work Phone: History of Present illness NarrativePatient confirmed name and date of . Patient able to progress to R GH strengthening with good tolerance. Some discomfort in R UT with ER walkouts using orange, reduced to peach band and patient was able to complete 10 reps. Good ROM with PROM. HEP given along with bands, good understanding expressed. [facility] Work Phone: History of Present illness Narrative* Abdiel returns for CT chest results. * Lung nodules found incidental on imaging done by her ortho: Repeat CT of lung to assess nodules. Reviewed report with patient. [facility] 205 DO Work Phone: History of Present illness Narrative* Abdiel returns for CT chest results. * Lung nodules found incidental on imaging done by her ortho: Repeat CT of lung to assess nodules. Reviewed report with patient. he denies any shortness of breath, and is a non-smoker. [facility] [address] DO Work Phone: History of [...] prone with poor eccentric control and quick fatigue.[facility] Work Phone: History of Present illness NarrativePatient identified by name and . IASTM/STM completed to reduce soft tissue restrictions in R lower cervical and shoulder musculature. After manual therapy she reported pain decreased to 1/10. During prone unweighted exercises demo's quick fatigue. LAVINIA Jeffries All clinical decision makingand treatment directly supervised by Cherise Powers PTA [phone].[facility] [address] Work Phone: History of Present illness [...] understanding of all edu provided concerning TDN. [facility] Work Phone: History of Present illness [...] treatment directly supervised by Cherise Powers PTA [phone].[facility] Work Phone: History of Present illness NarrativePatient was identified by name and date. This session able to progress scap stability exercises and add quadruped activities with reports of fatigue only.[facility] Work Phone: History of Present illness NarrativePatient was identified by name and date. This session focus on manual work as patient had 2 week break from therapy and increased Sxs noted. IASTM/STM and cupping completed to reduce soft tissue restrictions at R shoulder and cervical musculature. She was bale to complete all UE PREs without c/o. [facility] Work Phone: History of Present illness NarrativePatient was identified by name and date. IASTM/STM completed to reduce soft tissue restrictions along medial border of scap. Consulted physical therapist (DT) for dry needling to address spasm along medial border of R scap. After manual therapy and dry needling she was able to progress scapular stability and added theraband exercises without c/o.[facility] Work Phone: History of Present illness NarrativePatient was identified by name and date. This session able to progress UE PREs and scap stability exercises with c/o fatigue only.[facility] [place] Work Phone: History of Present illness NarrativePatient was identified by name and date. IASTM/STM completed to reduce soft tissue restrictions at R shoulder blade musculature. Notes after manual she obtained midline shoulder and cervical position. Completed all UE PREs with signs of fatigue only.[facility] [place] Work Phone: History of Present illness NarrativePatient was identified by name and date. IASTM/STM completed to reduce soft tissue restrictions to R scapular and lower cervical musculature. After manual she was able to demo supine shoulder flexion WNL and denied pain. Completed all UE PREs without c/o.[facility] Work Phone: History of Present illness Narrative* [...] to complete today's treatment with ease. [facility] [place] Work Phone: History of Present illness NarrativePatient identified by name and date of . Patient demonstrated good understanding of HEP with review. She demonstrated good ROM with PROM and cues to relax at times. Added UT stretch secondary topalpable tension and report of discomfort.[facility] [place] Work Phone: History of Present illness NarrativePatient was identified by name and date. IASTM/STM and cupping completed to reduce soft tissue restrictions in R lower cervical and shoulder musculature. After manual therapy she demo'd all shoulder planes WNL.[facility] [place] Work Phone: History of Present illness Narrative* Pt. with fair tolerance with session this date. Pt. notes discomfort with right scapula, bottom incision. Verbal cues needed with alfonso PAVON exercises. Fair tolerance with manual therapies this date, no c/o increased sx.s noted. * Response to treatment: decreased pain. * Patient was able to complete today's treatment with some difficulty. [facility] [place] Work Phone: Hisrveu of Present illness NarrativePatient identity confirmed today with name/. will hold PRE until next week; the patient was encouraged to continue consistent icing at days end per the patient the surgeon said to expect fatigue with rehab (but did not mention 6/10 pain) so PRE will be held until next week. [facility] [place] Work Phone: History of Present illness NarrativePatient was identified by name and date. IASTM/STM completed to reduce soft tissue restrictions in R upper back and shoulder musculature. She reported decreased tightness and pain after manual therapy. Completed all exercises without c/o.[facility] [place] Work Phone: History of Present illness NarrativePatient [...] treatment directly supervised by Cherise Powers PTA [id number].[facility] [place] Work Phone: History of Present illness NarrativePatient [...] treatment directly supervised by Cherise Powers PTA 5122.[facility] Work Phone: History of Present illness NarrativePatient was identified by name and date. Today able to progress resistance with T band exercises with no c/o increased Sxs. She noted fatigue after session. Discussed progression of HEP and shewill begin unweighted prone stability exercises. She voiced good understanding with instruction.[facility] [place] Work Phone: History of Present illness NarrativePatient was identified by name and date. Consulted physical therapist (DT) for DN to address spasm in R scap musculature. IASTM/STM completed to reduce soft tissue restrictions in R shoulder/scap musculature. After manual therapy she denied tightness. Progress scap stability exercises withoutc/o.[facility] Work Phone: History of Present illness NarrativePatient was identified by name and date. IASTM/STM completed to reduce soft tissue restrictions in R cervical and scap musculature. After manual therapy she denied pain and tightness. She was able to complete prone scap stability exercises with minimal signs of fatigue.[facility] [place] Work Phone: History of Present illness Narrative* Pt. with good tolerance with TE this date, increased reps with IR/ER IASTM to the right scapula which patient has tightness present. Pt. given cues with prone TE. * Response to treatment: decreased pain. * Patient was able to complete today's treatment with some difficulty. [facility] Work Phone: History of Present illness NarrativePatient was identified by name and date. IASTM/STM completed to reduce soft tissue restrictions at R scap musculature. Physical therapist (DT) consulted for DN. After manual she reported decreased pain and tightness. This session able to progress stability exercises with signs of fatigue only.[facility] Work Phone: History of Present illness NarrativePatient was identified by name and date. More localized region of restrictions which were addressed with cupping/IASTM/STM. She was able to progress CKC strengthening and added quadruped exercises and modified planks with signs of fatigue only. Increased weight during prone scap stability exercises without c/o.[facility] Work Phone: Hisaukj of Present illness Narrative* Patient with tightness [...] and improved knowledge and understanding of condition. [facility] Work Phone: Hiskacp of Present illness Narrative* Patient identity confirmed today with name/. see goals; good ROM and strength gains; still C/O reduced crepitus with mildly reduced max sx levels; ongoing HEP reviewed and updated today. * Response to treatment: improved flexibility, improved tissue mobility and improved knowledge and understanding of condition. [facility] Work Phone: history of Present illness Narrative* Patient identity confirmed today with name/. see goals; good ROM and strength gains; still C/O reduced crepitus with mildly reduced max sx levels; ongoing HEP reviewed and updated today. * Response to treatment: improved flexibility, improved tissue mobility and improved knowledge and understanding of condition. [facility] Work Phone: History of Present illness Narrative* [...] and improved knowledge and understanding of condition. [facility] Work Phone: History of Present illness NarrativePatient was identified by name and date. Today noted very localized region of muscle tightness at incision. Consulted physical therapist (DT) for DN to address. Progressed CKC strengthening andprone B/L scap exercises and noted quick fatigue. This session demo'd planks vs modified plank without c/o.[facility] Work Phone: History of Present illness NarrativePatient identified by date of and name. She is able to perform planks in quadruped with notedfatigue. Most challenged with T band ER/IR in small ROM. Completed all stability exercises without c/o. Anita REAA. All clinical decision making and treatment directly supervised by Cherise Powers FLOOR SCRAPER [phone].[facility] Work Phone: History of Present illness NarrativePatient was identified by name and date. Consulted physical therapist (DT)for DN to address spasm more localized along R medial border of scap and UT. After DN she was able to complete all stability and UE PREs without c/o.[facility] Work Phone: History of Present illness Narrative* Lexie Nguyen APRN-FINDING FASTENER - 06/05/2023 1:20 PM EDT Subjective Patient [...] Follow up as before [facility]: Reason for visit Narrative* Initial Evaluation . S/P R bursectomy/scapulectomy. * Referred by: Dr Hoff [facility] Work Phone: Summary Purpose Family History No [...] FoundDocuments on File Type Date Recorded Patient Head Librarian Expl anation Advance Directives and Living Will Documents on File Type Date Recorded Patient Head Librarian Expl anation Advance Directives and Living Will History of Present Illness * Guillermo Pineda MD - 10/13/2019 10:40 AM EST Procedures ELECTROMYOGRAPHY (Nerve conduction/EMG) Report [facility] - Neurology [place], [place] Brief History: Patient with 1-1/2-year of [...] Neurophysiology, Neurology, Vascular Neurology and Sleep Medicine [facility] [place] [phone] Nota bene: Portions of this chart was created using [employer] voice recognition software. Occasional wrong-word or sound-like [...] CT chest wo IV contrast Lexie Nguyen, EDITOR FARM JOURNAL-FINDING FASTENER [address] [place] [address] Referral ID Status Reason Start Date Expiration Date Visits Requested Visits Authorized [id number] Authorized Perform Procedure 02/21/2023 08/20/2023 1 1 Specialty Diagnoses / Procedures Referred By Contac t Referred To Contact Radiology Diagnoses Chronic neck pain Procedures XR cervical spine complete 4-5 views Lexie Nguyen, TESSIE-FINDING FASTENER [address] [place] [address] Referral ID Status Reason Start Date Expiration Date Visits Requested Visits Authorized [id number] Authorized Perform Procedure 02/21/2023 08/20/2023 1 1 Specialty Diagnoses / Procedures Referred By Contac t Referred To Contact Radiology Diagnoses Neck swelling Procedures US head neck soft tissue Lexie Nguyen, EDITOR FARM JOURNAL-FINDING FASTENER [address] [place] [address] Referral ID Status Reason Start Date Expiration Date Visits Requested Visits Authorized [id number] Authorized Perform Procedure 02/21/2023 08/20/2023 1 1 Additional Source Comments INFORMATION SOURCE (unrecogn ized section and content) DATE CREATED AUTHOR AUTHOR'S ORGANIZ ATION 02/18/2021 [facility] DATE CREATED AUTHOR AUTHOR'S ORGANIZ ATION 05/21/2021 [facility] DATE CREATED AUTHOR AUTHOR'S ORGANIZ ATION 03/04/2022 [facility] [facility] DATE CREATED AUTHOR AUTHOR'S ORGANIZ ATION 12/03/2022 [facility] DATE CREATED AUTHOR AUTHOR'S ORGANIZ ATION 12/04/2022 [facility] DATE CREATED AUTHOR AUTHOR'S ORGANIZ ATION 04/07/2023 [facility] DATE CREATED AUTHOR AUTHOR'S ORGANIZ ATION 06/07/[address] [facility] DATE CREATED AUTHOR AUTHOR'S ORGANIZ ATION 07/18/2023 [facility] Reason for Visit (unrecogniz ed [...] Reason Comments Follow-up DISCUSS LABS DONE AT [facility] IN [place] AND [place] RT SIDE ON NECK Reason Comments Abdominal Cramping 4 days Diarrhea X 3 days associated with a fever Reason Comments Diarrhea Works at [employer] nguyen has been confirmed cases of C-Diff, pt has had diarrhea x 1 week. Care Teams (unrecognized sec tion and content) Auto Emissions Technician Relationship Specialty Start Date End Date Seb Wild January, FINDING FASTENER [address] [place] [address] PCP - General Nurse Practitioner 10/03/19 Auto Emissions Technician Relationship Specialty Start Date End Date Seb Wild [address] [facility] [address] PCP - General Family Medicine 06/14/22 Auto Emissions Technician Relationship Specialty Start Date End Date Seb Wild, EDITOR FARM JOURNA[employer].FINDING FASTENER [address] [place] [address] PCP - General Family Medicine 06/14/22 Auto Emissions Technician Relationship Specialty Start Date End Date Beverley Phillip, EDITOR FARM JOURNAL-FINDING FASTENER [address] [address] PCP - MMO ACO PCP 05/27/22 Lexie Nguyen, EDITOR FARM JOURNA[employer]-FINDING FASTENER [address] [place] [address] PCP - General Internal Medicine 01/10/23 Auto Emissions Technician Relationship Specialty Start Date End Date Lexie Nguyen, EDITOR FARM JOURNAL-FINDING FASTENER [address] [place] [address] PCP - General Internal Medicine 01/10/23 Lexie Nguyen, EDITOR FARM JOURNAL-FINDING FASTENER [address] [place] [address] PCP - MMO ACO PCP 01/25/23 Auto Emissions Technician Relationship Specialty Start Date End Date Lexie Nguyen, EDITOR FARM JOURNA[employer]-FINDING FASTENER [address] [place] [address] PCP - General Internal Medicine 01/10/23 Lexie Nguyen, EDITOR FARM JOURNAL-FINDING FASTENER [address] [place] [address] [phone] (work) PCP - MMO ACO PCP 01/25/23 Source Comments (unrecognize d section and content) In the event this informatio n is protected by the Federal Confidentiality of Alcohol and Drug Abuse Patient Records regulations: The Federal rules restrict any use of the information to criminally investigate or prosecute any alcohol or drug abuse patient.[facility] the event this information is protected by the Federal Confidentiality of Alcohol and Drug Abuse Patient Records regulations: The Federal rules restrict any use of the information to criminally investigate or prosecute any alcohol or drug abuse patient.[facility] the event this information is protected by the Federal Confidentiality of Alcohol and Drug Abuse Patient Records regulations: The Federal rules restrict any use of the information to criminally investigate or prosecute any alcohol or drug abuse patient.[facility] <item> Privacy Markings (unrecogniz ed section and [...] BE BASED ON THE PRIMARY CLINICAL RECORDS. [facility] [employer] [facility]. provides no warranty or guarantee of the accuracy or completeness of information in this document.
[2023-09-13 15:56] LABS: NATERA MAILED SPECIMEN
[2023-09-13 15:59] LABS: Absolute Lymphocyte Count 1.86 X10^3/uL (0.83-4.51); Absolute Neutrophil Count 4.2 X10^3/uL (2.0-7.7); Basophil# 0.02 X10^3/uL; Basophil% 0.3 % (0-1); Eosinophil# 0.01 X10^3/uL; Eosinophils% 0.2 % (0-5); Hematocrit 39.1 % (37-47); Hemoglobin 13.4 g/dL (12.0-15.0); Lymphocyte # 1.86 X10^3/ul (0.83-4.51); Lymphocyte % 27.9 % (19-41); Mean Corp Hgb Conc 34.3 g/dL (32-36); Mean Corpuscular Hgb 29.5 pg (27.0-32.0); Mean Corpuscular Volume 86.1 fL (81-99); Mean Platelet Vol. 9.7 fl (6.2-12.0); Monocyte# 0.51 X10^3/uL; Monocyte% 7.7 % (0-10); NRBC Flagged by Analyzer 0 % (0-5); Neutrophil # 4.24 X10^3/uL (2.7-7.7); Neutrophil % 63.6 % (47-70); Platelet Count 208 K/mm3 (150-450); RBC Distribution Width CV 12.3 % (11.6-14.6); RBC Distribution Width SD 38.8 fl (35.1-43.9); Red Blood Count 4.54 M/mm3 (4.2-5.4); White Blood Count 6.7 K/mm3 (4.4-11.0)
[2023-09-13 17:09] LABS: HIV - WCH Non-Reactive (Nonreactive); Hepatitis B Surface Antigen Non-Reactive (Nonreactive); Hepatitis C Antibody Non-Reactive (Nonreactive); Rubella IgG Reactive (Nonreactive); Syphilis Antibodies Non-reactive
== END | disposition home or self-care (01) ==
LOC: LAB 14:43
PROVIDERS: PCP Nurse Practitioner Family; Referring Provider Registered Nurse; Visit Provider Registered Nurse
DX: Z34.81 Encounter for supervision of other normal pregnancy, first trimester (principal)
CPT/HCPCS: 36415; 85025; 86703; 86762; 86780; 86803; 86850; 86900; 86901; 87340

== ENCOUNTER 2023-09-17 18:04 | Emergency (ER) | payer OTHER, SELFPAY ==
[2023-09-17 18:05] VITALS: BP 132/76; PULSE 95; RESP 16; TEMP 36.3; O2SAT 100; BMI 28.7
--- NOTE | 2023-09-17 18:17 | ED.VIS.FEGU ---
HPI HPI - Female History of Present Illness Chief Complaint: Vag Bld, Preg Informant: patient Pain Pain: Positive for Pelvic Pain Onset: Today Context: Gradual Onset Timing: Continuous Quality: Positive for Cramping Location: Suprapubic Worsened by: - (Nothing) Relieved by: - (Nothing) Bleeding Issue: Positive for Vaginal bleeding Onset: Today Context: Gradual Onset Timing: Continuous Current Severity: Spotting Associated Symptoms Associated Symptoms: Positive for Hematuria; Negative for Dysuria or Frequency Test: Positive Narrative Narrative: Patient presents with vaginal bleeding and cramping that began today. Patient states that she has been having some spotting throughout her . Patient states she is approximately 12 weeks . Patient states that she noted some blood in her urine today. Patient admits to some lower abdominal cramping. Patient states that goes into her back as well. Patient states nothing makes it worse and nothing makes it better. [facility] Medical History Snapping scapula syndrome Home Medications albuterol 90 mcg/actuation aerosol inhaler mcg inhalation PRN 08/10/23 [History Last Taken Unknown] [id number]-V. coag-B. subtilis-inulin 1 billion cell-1 gram chew tab (Culturelle Probiotic-Multivit) tab PO 08/10/23 [History Last Taken Unknown] multivitamin no.47-iron fum 27 mg-folate no.1 1 mg-dha 300 mg capsule (PNV-DHA) cap PO 08/10/23 [History Last Taken Unknown] Allergy/AdvReac Type Severity Reaction Status Date / Time No Known Allergies Allergy Unverified 09/13/23 15:12 Family History Grandmother Breast cancer, Onset Age: 70 Maternal Cancer, Onset Age: 50 Maternal- Uterine Father Hypertension Surgical History History of shoulder surgery History of tonsillectomy [place] teeth extracted Social History adopted: No household members: spouse current occupational status: employed current occupation: [employer] of pets and animals: Yes (outside-) pets and animals: cat(s) history of recent travel: Yes ([place]) out of country: Yes sexually active: Yes Smoking Status: Never smoker alcohol intake: never substance use type: does not use well-balanced diet: daily or most days caffeine: No eating out: 1-3 times/week during the past year weight has: decreased > 10 lbs what type of physical activity do you participate in: none erlinda/yarsanism: Taoist seatbelt use: always do you feel safe at home: Yes 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 Lazaro BAIRD ROS ED Constitutional Constitutional ED: Denies chills or fever(s) Eyes Eyes: Denies blurry vision or change in vision ENT ENT ED: Denies rhinorrhea or sore throat Cardiovascular Cardiovascular: Denies chest pain or palpitations Respiratory/Chest Respiratory/Chest: Denies cough or dyspnea Gastrointestinal Gastrointestinal: Reports abdominal pain; Denies nausea or vomiting Genitourinary Genitourinary ED: Reports hematuria; Denies dysuria Musculoskeletal Musculoskeletal: Reports back pain; Denies neck pain Integumentary Denies abscess or rash Neurologic Neurologic: Denies headache(s) or weakness Allergic/Immunologic Allergic/Immunologic ED: Denies mouth swelling or urticaria EXAM Physical Exam Const Vital Signs: 09/17/23 18:05 Temperature 97.3 F L Temperature Source Temporal Pulse Rate 95 Respiratory Rate 16 Blood Pressure 132/76 H Blood Pressure Mean 94 Pulse Ox 100 Oxygen Delivery Method Room Air Positive well nourished and well developed General Appearance ED: well developed and NAD HEENT Reports moist mucous membranes Neck supple and no JVD Resp normal respiratory effort and clear to auscultation bilaterally Cardio regular rate and regular rhythm GI soft to palpation and non-distended Palpation: tender LLQ, RLQ and suprapubic; Negative for guarding Extremity normal to inspection and full ROM General Extremety ED: Negative for edema or tenderness General Extremity: Negative for edema Neuro oriented x3, CN's II-XII intact bilaterally and no sensory deficits noted Sensorium / Orientation: alert Motor Exam: strength 5/5 throughout Psych mental status grossly normal MDM MDM MDM Narrative Medical decision making narrative: Differential diagnosis includes threatened miscarriage, ovarian cyst, urinary tract infection, and ectopic . CBC will be obtained to assess for leukocytosis and anemia. Basic metabolic profile will be obtained to assess for electrolyte abnormality and renal function. Quantitative hCG will be obtained to assess for . Pelvic ultrasound will be obtained to assess for viability. Lab Data Attestation: I reviewed the patient's lab results. Lab results narrative: CBC was reviewed and was within normal limits. Basic metabolic profile was reviewed. Glucose was only slightly elevated at 137. Anion gap was normal. Electrolytes were normal. Quantitative hCG was reviewed and was [address]. Urinalysis was reviewed. There is no evidence of urinary tract infection or hematuria. Labs: Laboratory Results - last 24 hr 09/17/23 09/17/23 09/17/23 18:45 18:45 19:15 WBC Cancelled Cancelled Corrected WBC Cancelled Cancelled RBC Cancelled Cancelled Hgb Cancelled Cancelled Hct Cancelled Cancelled MCV Cancelled Cancelled MCH Cancelled Cancelled MCHC Cancelled Cancelled RDW Std Deviation Cancelled Cancelled RDW Coeff of [place] Cancelled Cancelled Plt Count Cancelled Cancelled MPV Cancelled Cancelled Immature Gran % (Auto) Cancelled Cancelled Neut % (Auto) Cancelled Cancelled Lymph % (Auto) Cancelled Cancelled Anderson % (Auto) Cancelled Cancelled Eos % (Auto) Cancelled Cancelled Baso % (Auto) Cancelled Cancelled Absolute Neuts (auto) Cancelled Cancelled Absolute Lymphs (auto) Cancelled Cancelled Total Counted Cancelled Cancelled Neutrophils % (Manual) Cancelled Cancelled Band Neutrophils % Cancelled Cancelled Lymphocytes % (Manual) Cancelled Cancelled Monocytes % (Manual) Cancelled Cancelled Eosinophils % (Manual) Cancelled Cancelled Basophils % (Manual) Cancelled Cancelled Metamyelocytes % Cancelled Cancelled Myelocytes % Cancelled Cancelled Promyelocytes % Cancelled Cancelled Blast Cells % Cancelled Cancelled Plasma Cell % (Manual) Cancelled Cancelled Other Cells % Cancelled Cancelled Nucleated RBC % Cancelled Cancelled Nucleated RBCs/100 WBC Cancelled Cancelled Differential Comment Cancelled Cancelled Diff Path Review Cancelled Cancelled Hypersegmented Neuts Cancelled Cancelled Atypical Lymphocytes Cancelled Cancelled Reactive Lymphocytes Cancelled Cancelled Smudge Cells Cancelled Cancelled Toxic Granulation Cancelled Cancelled Toxic Vacuolation Cancelled Cancelled Dohle Bodies Cancelled Cancelled Geetha Rods Cancelled Cancelled Platelet Estimate Cancelled Cancelled Plt Morphology Comment Cancelled Cancelled RBC Morphology Cancelled Cancelled Cancelled Polychromasia Cancelled Hypochromasia Cancelled Poikilocytosis Cancelled Basophilic Stippling Cancelled Anisocytosis Cancelled Microcytosis Cancelled Macrocytosis Cancelled Spherocytes Cancelled Sickle Cells Cancelled Target Cells Cancelled Tear Drop Cells Cancelled Ovalocytes Cancelled Stomatocytes Cancelled [place] Bodies Cancelled Ben Cells Cancelled Bite Cells Cancelled Crenated Cell Cancelled Acanthocytes (Spur) Cancelled Rouleaux Cancelled Schistocytes Cancelled Sodium 137 Potassium 3.8 Chloride 106 Carbon Dioxide 24.0 Anion Gap 7 BUN 9 Creatinine 0.65 Estim Creat Clear Calc 114.44 Est GFR (MDRD) Af Amer 138 Est GFR (MDRD) Non-Af 114 BUN/Creatinine Ratio 13.8 Glucose 137 H Calcium 9.4 HCG, Quant 73677 H Urine Color Yellow Urine Clarity Clear Urine pH 6.0 Ur Specific [place] 1.015 Urine Protein Negative Urine Glucose (UA) Normal Urine Ketones 5 H Urine Occult Blood 50 H Urine Nitrite Negative Urine Bilirubin Negative Urine Urobilinogen Normal Ur Leukocyte Esterase Negative Urine RBC 0 SEEN Urine WBC 0 SEEN Ur Squamous Epith Cells 0 SEEN Urine Bacteria 0 SEEN Urine Mucus 0 SEEN 09/17/23 09/17/23 19:15 19:40 WBC 6.7 Corrected WBC RBC 4.24 Hgb 12.6 Hct 36.3 L MCV 85.6 MCH 29.7 MCHC 34.7 RDW Std Deviation 37.7 RDW Coeff of [place] 12.0 Plt Count 177 MPV 9.5 Immature Gran % (Auto) 0.400 Neut % (Auto) 61.2 Lymph % (Auto) 28.6 Anderson % (Auto) 9.1 Eos % (Auto) 0.4 Baso % (Auto) 0.3 Absolute Neuts (auto) 4.1 Absolute Lymphs (auto) 1.93 Total Counted Neutrophils % (Manual) Band Neutrophils % Lymphocytes % (Manual) Monocytes % (Manual) Eosinophils % (Manual) Basophils % (Manual) Metamyelocytes % Myelocytes % Promyelocytes % Blast Cells % Plasma Cell % (Manual) Other Cells % Nucleated RBC % 0 Nucleated RBCs/100 WBC Differential Comment Diff Path Review Hypersegmented Neuts Atypical Lymphocytes Reactive Lymphocytes Smudge Cells Toxic Granulation Toxic Vacuolation Dohle Bodies [place]eth[place] Rods Platelet Estimate Plt Morphology Comment RBC Morphology Cancelled Polychromasia Cancelled Hypochromasia Cancelled Poikilocytosis Cancelled Basophilic Stippling Cancelled Anisocytosis Cancelled Microcytosis Cancelled Macrocytosis Cancelled Spherocytes Cancelled Sickle Cells Cancelled Target Cells Cancelled Tear Drop Cells Cancelled Ovalocytes Cancelled Stomatocytes Cancelled [place] Bodies Cancelled Aubrey Cells Cancelled Bite Cells Cancelled Crenated Cell Cancelled Acanthocytes (Spur) Cancelled Rouleaux Cancelled Schistocytes Cancelled Sodium Potassium Chloride Carbon Dioxide Anion Gap BUN Creatinine Estim Creat Clear Calc Est GFR (MDRD) Af Amer Est GFR (MDRD) Non-Af BUN/Creatinine Ratio Glucose Calcium HCG, Quant Urine Color Urine Clarity Urine pH Ur Specific [place] Urine Protein Urine Glucose (UA) Urine Ketones Urine Occult Blood Urine Nitrite Urine Bilirubin Urine Urobilinogen Ur Leukocyte Esterase Urine RBC Urine WBC Ur Squamous Epith Cells Urine Bacteria Urine Mucus Radiography Diagnostic Testing: Clinical Impression(s) from Imaging Studies Obstetrics Ultrasound 09/17/23 18:22 IMPRESSION: Single intrauterine gestation 11 weeks 4 days with estimated due date April 03, 2024. Electronically Signed: Neemsio Alex MD at 20:15 EST , Pelvic ultrasound was obtained. There is a single intrauterine with 11 weeks 4 days gestation. heart rate was 166. This was interpreted by the radiologist and was also independently reviewed by myself. Treatment and Re-Evaluation Narrative: Patient was advised of her findings. Patient is feeling better on reevaluation. Patient was instructed to follow-up with her CREDIT INVESTIGATOR in 2 to 3 days. Patient was instructed to return if worse in any way. Patient understood and was agreeable with the plan. All questions were answered. Discharge Plan Triage Chief Complaint: Vag Bld, Preg ED Provider: Bayron Gonzalez Dx/Rx/DC Orders Clinical Impression: Threatened miscarriage, Spotting affecting Instructions: ED Abdominal Pain, Early , Miscarriage Threatened Prescriptions: No Action PNV-DHA 27 mg iron-1 mg -300 mg capsule PO Culturelle Probiotic-Multivit 1 billion cell- 1 gram tablet,chewable PO albuterol 90 mcg/actuation aerosol inhalation PRN Primary Care Provider: Lexie Khan Referrals: Carrie Prieto DO [Med Staff - Active Staff] - 3-5 Days Lexie Khan, DESKTOP ARCHITECT-C [Primary Care Provider] - 5-7 Days Disposition Disposition: Home, Self Care
--- NOTE | 2023-09-17 18:22 | US_ITS ---
STUDY: FIRST TRIMESTER OBSTETRICAL ULTRASOUND REASON FOR EXAM: Female, 27 years old Pelvic pain LMP: Unknown. TECHNIQUE: Transvaginal TECHNICAL QUALITY: Adequate. PRIOR ULTRASOUND: August 02, 2023 FINDINGS: There is visualization of a single gestational sac in a normal intrauterine position. The mean sac diameter (MSD) measures 5.5 cm, indicating an estimated gestational age (EGA) of 11 weeks, 3 days. The gestational sac shape is within normal limits. There is no demonstrated yolk sac. The placenta is non-visualized. There is visualization of a live embryo. The crown-rump length (CRL) measures 5.3 cm, indicating an estimated gestational age (EGA) of 11 weeks, 5 days. There is demonstrated cardiac activity with a heart rate of 166 bpm. The estimated gestation age (EGA) by prior US is 11 weeks, 6 days. The estimated date of delivery (RONNIE) by prior US is April 01, 2024. The estimated gestation age (EGA) by US is 11 weeks, 4 days. The estimated date of delivery (RONNIE) by US is April 03, 2024. The uterus measures 13.7 x 7.4 x 6.2 cm. There is no demonstrated uterine fibroid. The cervix is closed. The right ovary is not visualized. The left ovary is not visualized. There is no fluid in the cul de sac. US/Transvaginal w/Preg US IMPRESSION: Single intrauterine gestation 11 weeks 4 days with estimated due date April 03, 2024. Electronically Signed: Nemesio Alex MD at 20:15 EST ,
--- OUTSIDE RECORDS SUMMARY | 2023-09-17 18:43 | XMS RPT_ITS | CCD ---
Author Name Unknown Address [address] [place] [address] Organization [facility] Care Team Providers Care Form Builder Helper Name Role Phone Jeanna Pang [facility] Unavailab Jeanna Rodriguez Admitting Unavailable Missael Gonzales Attending Unavailable [facility] January Primary Care Unavailab Missael Whalen Admitting Unavailable Missael Gonzales Attending Unavailable [facility] January Referring [facility]ab [facility] Unavailab Missael Whalen Admitting Unavailable [facility] January Attending [facility]ailab [facility] Primary Care Unavailab le [facility] January Admitting Unavailab josey [facility] Shari Primary Care Provider [phone] Seb Wild Unavailable Unavailable Jeanna Page Unavailable Unavailable [place] Seb Unavailable Unavailable Herman Shaffer Unavailable Unavailable Lawrence Cunha Unavailable Unavailable Seb Wild Unavailable Unavailable Un[facility] Primary [facility] Provider BRETT BURGOS JR. Attending Unavailable [facility] JANUARY Primary Care Unavailab BRETT Askew JR. Attending Unavailable [facility] JANUARY Primary Care Unavailab Zach Esquivel MD Unavailable Unavailable Primary Care Provider Unavailabl e Junito [facility] Primary Care Provider Beverley Phillip K Unavailable Beverley Phillip Unavailable Unavailable Yoav, Makayla Unavailable Unavailable Caleb Hoff Unavailable Unavailable [place] MOTORCYCLE MECHANIC APPRENTICE.[employer]CES COMMUNICATIONS SERGEANT, Seb Primary Care Provider JENNIFER PRYOR Attending Unavailable HARPSTER, SEB Primary Care Unavailable Phillip MOTORCYCLE MECHANIC APPRENTICE-[employer] COMMUNICATIONS SERGEANT, Beverley K Unavailable Patrick MOTORCYCLE MECHANIC APPRENTICE-[employer] FORCES COMMUNICATIONS SERGEANT, Lexie D Primary Care Provider Patrick, Ms. [...] Chris, Dr. Barrett Olson Attending Unavaila ble Montrose, Ms. Seb Shari Primary Care Unava ilable Chris, Dr. Barrett Olson Attending Unavaila ble Montrose, Ms. Seb Shari Primary Care Unava ilable [...] Chris, Dr. Barrett Olson Attending Unavaila ble Montrose, Ms. Seb Shari Primary Care Unava ilable Phillip, Ms. Beverley Dalia Primary Care Unavailable Luis Eduardo, Dr. Caleb Lemos Attending Unavail able Chris, Dr. Barrett Olson Attending Unavaila ble Montrose, Ms. Seb Shari Primary Care Unava ilable [...] Chris, Dr. Barrett Olson Attending Unavaila ble [place], Ms. Seb Shari Primary Care Unava ilable [...] Chris, Dr. Barrett Olson Attending Unavaila ble Montrose, Ms. Seb Shari Primary Care Unava ilable [...] [PLANT POLLENS] allergy to substance hay fever [facility] Work Phone: Medications Current Medications Medication Drug Class(es) Dates Sig (Normalized) Sig (Original) [id number] 200 actuat albuterol 0.09 mg/actuat metered dose [...] 09:09-0400 Body height 154.9 cm German Olivares APRNRoth Builders Work Phone: [facility] 06-07-2023 09:09-0400 Body mass index (BMI) [Ratio] 27.44 kg/m2 German Olivares APRN-[employer] COMMUNICATIONS SERGEANT Work Phone: [facility] 06-07-2023 09:09-0400 Body temperature 98.2 [degF] German Olivares APRN-[employer] COMMUNICATIONS SERGEANT Work Phone: [facility] 06-07-2023 09:09-0400 Body weight 65.86 kg German Olivares APRN-[employer] COMMUNICATIONS SERGEANT Work Phone: [facility] 06-07-2023 09:09-0400 Diastolic blood pressure 75 mm[Hg] German Olivares APRN-[employer] COMMUNICATIONS SERGEANT Work Phone: [facility] 06-07-2023 09:09-0400 Heart rate 96 /min German Olivares APRN-[employer] COMMUNICATIONS SERGEANT Work Phone: [facility] 06-07-2023 09:09-0400 Respiratory rate 16 /min German Olivares APRN-[employer] COMMUNICATIONS SERGEANT Work Phone: [facility] 06-07-2023 09:09-0400 SaO2% (BldA) [Mass fraction] 98 % German Olivares MOTORCYCLE MECHANIC APPRENTICE-[employer] COMMUNICATIONS SERGEANT Work Phone: [facility] 06-07-2023 09:09-0400 Systolic blood pressure 107 mm[Hg] German Olivares MOTORCYCLE MECHANIC APPRENTICE-[employer] COMMUNICATIONS SERGEANT Work Phone: [facility] 02-21-2023 10:23-0400 Body height 154.9 cm Lexie Nguyen MOTORCYCLE MECHANIC APPRENTICE-[employer] COMMUNICATIONS SERGEANT Work Phone: [facility] 02-21-2023 10:23-0400 Body mass index (BMI) [Ratio] 28.34 kg/m2 Lexie Nguyen MOTORCYCLE MECHANIC APPRENTICE-SPE[employer] COMMUNICATIONS SERGEANT Work Phone: [facility] 02-21-2023 10:23-0400 Body weight 68.04 kg Lexie Nguyen MOTORCYCLE MECHANIC APPRENTICE-SPE[employer] COMMUNICATIONS SERGEANT Work Phone: [facility] 02-21-2023 10:23-0400 Diastolic blood pressure 74 mm[Hg] Lexie Nguyen MOTORCYCLE MECHANIC APPRENTICE-[employer] COMMUNICATIONS SERGEANT Work Phone: [facility] 02-21-2023 10:23-0400 Heart rate 70 /min Lexie Nguyen MOTORCYCLE MECHANIC APPRENTICE-[employer] COMMUNICATIONS SERGEANT Work Phone: [facility] 02-21-2023 10:23-0400 Systolic blood pressure 106 mm[Hg] Lexie Nguyen MOTORCYCLE MECHANIC APPRENTICE-SPE[employer] COMMUNICATIONS SERGEANT Work Phone: [facility] 06-16-2022 08:06-0400 Body height 154.9 cm Jennifer Pryor MD Work Phone: [facility] 06-16-2022 08:06-0400 Body weight 113.67 kg Jennifer Pryor MD Work Phone: [facility] 06-16-2022 08:06-0400 Diastolic blood pressure 74 mm[Hg] Jennifer Pryor MD Work Phone: [facility] 06-16-2022 08:06-0400 Heart rate 85 /min Jennifer Pryor MD Work Phone: [facility] 06-16-2022 08:06-0400 Respiratory rate 12 /min Jennifer Pryor MD Work Phone: [facility] 06-16-2022 08:06-0400 SaO2% (BldA) [Mass fraction] 100 % Jennifer Pryor MD Work Phone: [facility] 06-16-2022 08:06-0400 Systolic blood pressure 106 mm[Hg] Jennifer Pryor MD Work Phone: [facility] 03-03-2022 13:44-0400 Body height 154.94 cm Seb Wild Work Phone: [facility] 205 DO Work Phone: 03-03-2022 13:44-0400 Body mass index (BMI) [Ratio] 28.91 kg/m2 Seb Wild Work Phone: [facility] 205 DO Work Phone: 03-03-2022 13:44-0400 Body surface area Derived from formula 1.69 m2 Seb Wild Work Phone: [facility] 205 DO Work Phone: 03-03-2022 13:44-0400 Body weight 69.4 kg Seb Wild Work Phone: [facility] 205 DO Work Phone: 03-03-2022 13:44-0400 Diastolic blood pressure 68 mm[Hg] Seb Wild Work Phone: [facility] 205 DO Work Phone: 03-03-2022 13:44-0400 Heart rate 80 /min Seb Wild Work Phone: [facility] 205 DO Work Phone: 03-03-2022 13:44-0400 Systolic blood pressure 102 mm[Hg] Seb Wild Work Phone: [facility] 205 DO Work Phone: 01-25-2022 15:29-0400 Body height 154.94 cm Seb Wild Work Phone: [facility] Work Phone: 01-25-2022 15:29-0400 Body mass index (BMI) [Ratio] 28.24 kg/m2 Seb Wild Work Phone: [facility] Work Phone: 01-25-2022 15:29-0400 Body surface area Derived from formula 1.67 m2 Seb Wild Work Phone: [facility] Work Phone: 01-25-2022 15:29-0400 Body weight 67.79 kg Seb Wild Work Phone: [facility] Work Phone: 01-25-2022 15:29-0400 Diastolic blood pressure 66 mm[Hg] Seb Wild Work Phone: [facility] Work Phone: 01-25-2022 15:29-0400 Heart rate 72 /min Seb Wild Work Phone: [facility] Work Phone: 01-25-2022 15:29-0400 SaO2% (BldA) [Mass fraction] 100 % Seb Wild Work Phone: [facility] Work Phone: 01-25-2022 15:29-0400 Systolic blood pressure 90 mm[Hg] Seb Wild Work Phone: [facility] Work Phone: 06-27-2021 15:37-0400 Body height 154.94 cm Seb Wild Work Phone: [facility] Work Phone: 06-27-2021 15:37-0400 Body mass index (BMI) [Ratio] 29.31 kg/m2 Seb Wild Work Phone: [facility] Work Phone: 06-27-2021 15:37-0400 Body surface area Derived from formula 1.7 m2 Seb Wild Work Phone: [facility] Work Phone: 06-27-2021 15:37-0400 Body temperature 98.4 [degF] Seb Wild Work Phone: [facility] Work Phone: 06-27-2021 15:37-0400 Body weight 70.37 kg Seb Wild Work Phone: [facility] Work Phone: 06-27-2021 15:37-0400 Diastolic blood pressure 60 mm[Hg] Seb Wild Work Phone: [facility] Work Phone: 06-27-2021 15:37-0400 Heart rate 77 /min Seb Wild Work Phone: [facility] Work Phone: 06-27-2021 15:37-0400 SaO2% (BldA) [Mass fraction] 99 % Seb Wild Work Phone: [facility] Work Phone: 06-27-2021 15:37-0400 Systolic blood pressure 108 mm[Hg] Seb Ericka Wild Work Phone: [facility] Work Phone: 05-20-2021 09:46-0400 Body temperature 97.2 [degF] Brett Leo Jr., DPM Work Phone: [facility] 05-20-2021 09:46-0400 Diastolic blood pressure 63 mm[Hg] Brett Leo Jr., DPM Work Phone: [facility] 05-20-2021 09:46-0400 Heart rate 83 /min Brett Leo Jr., DPM Work Phone: [facility] 05-20-2021 09:46-0400 Systolic blood pressure 100 mm[Hg] Brett Leo Jr., DPM Work Phone: [facility] 05-18-2021 15:26-0400 Body temperature 98.1 [degF] Brett Leo Jr., DPM Work Phone: [facility] 05-18-2021 15:26-0400 Diastolic blood pressure 74 mm[Hg] Brett Leo Jr., DPM Work Phone: [facility] 05-18-2021 15:26-0400 Heart rate 93 /min Brett Leo Jr., DPM Work Phone: [facility] 05-18-2021 15:26-0400 Systolic blood pressure 122 mm[Hg] Brett Leo Jr., DPM Work Phone: [facility] 04-21-2021 16:08-0400 Body height 154.94 cm Seb Wild [facility] Work Phone: 04-21-2021 16:08-0400 Body mass index (BMI) [Ratio] 28.81 kg/m2 Seb Ericka [place]rose Work Phone: [facility] Work Phone: 04-21-2021 16:08-0400 Body surface area Derived from formula 1.68 m2 Seb Barnett [place]rose Work Phone: [facility] Work Phone: 04-21-2021 16:08-0400 Body temperature 97.6 [degF] Seb Ericka [place] Work Phone: [facility] Work Phone: 04-21-2021 16:08-0400 Body weight 69.17 kg Seb Ericka [place] Work Phone: [facility] Work Phone: 04-21-2021 16:08-0400 Diastolic blood pressure 60 mm[Hg] Seb J [place] Work Phone: [facility] Work Phone: 04-21-2021 16:08-0400 Heart rate 62 /min Seb J [place] Work Phone: [facility] Work Phone: 04-21-2021 16:08-0400 SaO2% (BldA) [Mass fraction] 98 % Seb J Montrose Work Phone: [facility] Work Phone: 04-21-2021 16:08-0400 Systolic blood pressure 98 mm[Hg] Seb Barnett [place] Work Phone: [facility] Work Phone: 03-31-2021 12:42-0400 Body height 154.94 cm Seb Wild Work Phone: [facility] Work Phone: 03-31-2021 12:42-0400 Body mass index (BMI) [Ratio] 28.64 kg/m2 Seb Wild Work Phone: [facility] Work Phone: 03-31-2021 12:42-0400 Body surface area Derived from formula 1.68 m2 Seb Wild Work Phone: [facility] Work Phone: 03-31-2021 12:42-0400 Body temperature 97.7 [degF] Seb Wild Work Phone: [facility] Work Phone: 03-31-2021 12:42-0400 Body weight 68.75 kg Seb Wild Work Phone: [facility] Work Phone: 03-31-2021 12:42-0400 Diastolic blood pressure 76 mm[Hg] Seb Wild Work Phone: [facility] Work Phone: 03-31-2021 12:42-0400 Heart rate 80 /min Seb Wild Work Phone: [facility] Work Phone: 03-31-2021 12:42-0400 Systolic blood pressure 132 mm[Hg] Seb Ricciter Work Phone: [facility] Work Phone: 02-23-2020 17:23-0400 BMI (Body Mass [...] [facility] Work Phone: NEGATED: Highlighted [id number] 15:37-0500 Body height 154.94 cm Gina Pavick AT [facility] Work Phone: NEGATED: Highlighted [id number] 15:37-0500 Body height 155 cm Gina Pavick AT [facility] Work Phone: NEGATED: Highlighted [id number] 15:37-0500 Body mass index (BMI) [Ratio] 28.82 kg/m2 Gina Pavick AT [facility] Work Phone: NEGATED: Highlighted [id number] 15:37-0500 Body temperature 97.2 [degF] Gina Pavick AT [facility] Work Phone: NEGATED: Highlighted [id number] 15:37-0500 Body temperature 97.16 [degF] Gina Pavick AT [facility] Work Phone: NEGATED: Highlighted [id number] 15:37-0500 Body weight 68.95 kg Gina Pavick AT [facility] Work Phone: NEGATED: Highlighted [id number] 15:37-0500 Body weight 69 kg Gina Pavick AT [facility] Work Phone: Encounters Encounter Date Encounter Type Care Provider Facility Start: 07-13-2023 End: 07-14-2023 ambulatory LEXIE Nguyen [facility] Start: 06-07-2023 End: 06-08-2023 ambulatory LEXIE Nguyen [facility] Start: 06-07-2023 End: 06-07-2023 Office outpatient visit 15 minutes German Olivares APRN-[employer] COMMUNICATIONS SERGEANT Work Phone: [facility] Procedures Date Procedure Procedure [...] - S ca or Plasma Lexie Hilarioley MOTORCYCLE MECHANIC APPRENTICE-[employer] COMMUNICATIONS SERGEANT Work Phone: Start: 03-22-2022 Microscopic observat ion [Identifier] in Cervix by Cyto stain Lexie Nguyen MOTORCYCLE MECHANIC APPRENTICE-[employer] COMMUNICATIONS SERGEANT Work Phone: Start: 09-28-2021 End: 09-28-2021 BP [...] f 2) Zoster Vaccines (1 of 2) [facility] Start: 01-12-2028 Lipid panel Lipid Panel [facility] Start: 03-22-2025 Screening for malign ant neoplasm of cervix [facility] Start: 02-22-2024 End: 02-22-2024 Thyrotropin [Units/volume] in Serum or Plasma Thyroid Stimulating Hormone Lab Routine Abnormal TSH Expected: 02/22/2024 (Approximate), Expires: 02/22/2024 [facility] Work Phone: Immunizations Immunization Date Immunization Notes Care Provider Bhavna thompson 06-17-2021 Pfizer-BioNTech COVI D-19 Vacc 30 MCG/0.3ML Intramuscular Suspension Seb Wild Work Phone: [facility] Work Phone: Payers Date Payer Category Payer Unknown [employer] PPO xxxxxxxxxxxx 2019-Present [id number] 2019 Unknown [employer] PPO [id number] 2019-Present [phone] [address] [place] [address] [id number] .[id number] 2019 Unknown [id number] 2018 Unknown 1994 Unknown [id number] 2.16.840.1.265879.3.579.2.717 1994 Unknown [id number] 2.16.840.1.033895.3.579.2.717 1994 Unknown [id number] 2.16.840.1.070846.3.579.2.717 1994 Unknown [id number] 2.16.840.1.312297.3.579.2.717 1994 Unknown [id number] 2.16.840.1.225663.3.579.2.903 1994 Unknown [id number] 2.16.840.1.709462.3.579.2.903 1994 Unknown [id number] 2.16.840.1.808771.3.579.2.106 9 1994 Unknown [id number] 2.16.840.1.893014.3.579.2.106 9 1994 Unknown [id number] 2.16.840.1.012211.3.579.2.106 9 1994 Unknown [id number] 2.16.840.1.396621.3.579.2.106 9 1994 Unknown [id number] 2.16.840.1.795483.3.579.2.106 9 1994 Unknown [id number] 2.16.840.1.279962.3.579.2.106 9 1994 Unknown [id number] 2.16.840.1.571231.3.579.2.106 9 1994 Unknown [id number] 2.16.840.1.492588.3.579.2.106 9 1994 Unknown [id number] 2.16.840.1.387740.3.579.2.106 9 1994 Unknown [id number] 2.16.840.1.111347.3.579.2.106 9 1994 Unknown [id number] 2.16.840.1.511578.3.579.2.106 9 1994 Unknown [id number] 2.16.840.1.065429.3.579.2.106 9 1994 Unknown [id number] 2.16.840.1.176312.3.579.2.106 9 1994 Unknown [id number] 2.16.840.1.236081.3.579.2.106 9 1994 Unknown [id number] 2.16.840.1.287792.3.579.2.106 9 1994 Unknown [id number] 2.16.840.1.611597.3.579.2.106 9 1994 Unknown [id number] 2.16.840.1.647138.3.579.2.106 9 1994 Unknown [id number] 2.16.840.1.504700.3.579.2.106 9 1994 Unknown [id number] 2.16.840.1.988448.3.579.2.106 9 1994 Unknown [id number] 2.16.840.1.341369.3.579.2.106 9 1994 Unknown [id number] 2.16.840.1.333292.3.579.2.106 9 1994 Unknown [id number] 2.16.840.1.553451.3.579.2.106 9 1994 Unknown [id number] 2.16.840.1.636548.3.579.2.106 9 1994 Unknown [id number] 2.16.840.1.297275.3.579.2.106 9 1994 Unknown [id number] 2.16.840.1.755454.3.579.2.106 9 1994 Unknown [id number] 2.16.840.1.449842.3.579.2.106 9 1994 Unknown [id number] 2.16.840.1.333734.3.579.2.106 9 1994 Unknown [id number] 2.16.840.1.434277.3.579.2.106 9 1994 Unknown [id number] 2.16.840.1.574799.3.579.2.106 9 1994 Unknown [id number] 2.16.840.1.652838.3.579.2.106 9 1994 Unknown [id number] 2.16.840.1.440484.3.579.2.106 9 1994 Unknown [id number] 2.16.840.1.902066.3.579.2.106 9 1994 Unknown [id number] 2.16.840.1.824082.3.579.2.106 9 1994 Unknown [id number] 2.16.840.1.312227.3.579.2.106 9 1994 Unknown [id number] 2.16.840.1.450716.3.579.2.106 9 1994 Unknown [id number] 2.16.840.1.154293.3.579.2.106 9 1994 Unknown [id number] 2.16.840.1.468958.3.579.2.106 9 1994 Unknown [id number] 2.16.840.1.213468.3.579.2.106 9 1994 Unknown [id number] 2.16.840.1.830291.3.579.2.124 4 1994 Unknown [id number] 2.16.840.1.632897.3.579.2.124 4 1994 Unknown [id number] 2.16.840.1.061521.3.579.2.124 4 1994 Unknown [id number] 2.16.840.1.382476.3.579.2.124 4 1994 Unknown [id number] 2.16.840.1.739013.3.579.2.124 4 1994 Unknown [id number] 2.16.840.1.685814.3.579.2.124 5 1994 Unknown [id number] 2.16.840.1.606444.3.579.2.124 5 1994 Unknown [id number] 2.16.840.1.736693.3.579.2.124 5 1994 Unknown [id number] 2.16.840.1.297566.3.579.2.124 5 1994 Unknown [id number] 2.16.840.1.303139.3.579.2.124 5 Social History Date Type Detail Facility Start: 09-28-2021 End: 09-28-2021 Tobacco smoking status WVIS Unknown if ever smoked [facility] Start: 1995 Sex Assigned At Not on file [facility] Start: 02-21-2023 End: 06-05-2023 No alcohol use No alcohol use [facility] Start: 05-18-2021 End: 01-10-2023 Tobacco smoking status NHIS Never smoked tobacco [facility] Start: 05-18-2021 End: 01-10-2023 Tobacco use and exposure Smokeless tobacco non-user [facility] Start: 05-18-2021 End: 06-07-2023 Alcohol intake Lifetime non-drinker (finding) [facility] Start: 06-06-2022 End: 06-07-2023 Exposure to SARS-CoV-2 (event) Not sure [facility] Start: 02-21-2023 End: 06-05-2023 Tobacco use panel [facility] Start: 05-26-2023 End: 06-05-2023 Exposure to SARS-CoV-2 (event) Unable to assess [facility] Work Phone: NEGATED: Highlighted row - - [facility] Work Phone: NEGATED: Highlighted rowStart: 09-28-2021 End: 09-28-2021 Employment detail Employment detail [facility] Work Phone: Functional Status Date Assessment Result Facility NEGATED: Highlighted row Functional performance Functional status health issues are not documented Disease [facility] Work Phone: Mental Status Date Assessment Result Facility NEGATED: Highlighted row Cognitive function [Interpretation] Cognitive status health issues are not documented Disease [facility] Work Phone: Clinical Notes 11-03-2020 to 06-07-2023 German Olivares, MOTORCYCLE MECHANIC APPRENTICE-[facility] - 06/07/2023 9:05 AM Alicia Nguyen, MOTORCYCLE MECHANIC APPRENTICE-[facility] - 02/21/2023 10:20 AM EDTTelephone Encounter - Lexie Montgomery APRN.[facility] - 11/09/2022 12:15 PM EDT Note [...] Documentation Review Audit Reviewed by KENZIE KRAFT (Videotape Operator) on 06/07/23 at 0910 Medication Order Taking? Sig Documenting Provider Last Dose Status ergocalciferol (Vitamin D-2) 1.25 MG (70478 UT) capsule [id number] No Take 1 capsule (50,000 Units) by mouth 1 (one) time per week. Historical Provider, Not Taking Active levocetirizine (Xyzal) 5 mg tablet [id number] No Take 1 tablet (5 mg) by mouth once daily in the evening. Patient not taking: Reported on 06/07/2023 MARILOU Flowers Not Taking Active metroNIDAZOLE (Flagyl) 500 mg tablet [id number] No Take 1 tablet (500 mg) by [...] or any new concerns. German Olivares CNP [facility] [phone] documented in this encounter [facility] Work Phone: 02-21-2023 History of Presen t illness Narrative Subjective Patient ID: Abdiel Carranza is a 27 y.o. female who presents for Follow-up (DISCUSS LABS DONE AT [facility] IN [place] AND [place] [address] SIDE ON NECK). HPI: Presents today for C/O RIGHT NECK SWELLING X SEVERAL MONTHS modifying factors consists of HAS CHRONIC SHOULDER AND NECK PAIN associated symptoms consist of TENDER prior treatment consists of medication DRY NEEDLING TSH LEVEL 0.63 2 WEEKS AGO. LAB DONE BY [facility]. WILL RECHECK LAB LUNG NODULE- LAST CT [...] up as before documented in this encounter [facility] Work Phone: 11-09-2022 Miscellaneous Notes Teresa Baeza. This came to the [facility] pool. This may have landed in the wrong place? Please call with any questions. [phone] Lexie ZAMARRIPA Patient called requesting to schedule with Jatinder KATIE for a second opinion for Right breast pain. She is currently scheduled to be seen on 11/29/22. Please notify the patient if additional intake is required by the breast center prior to her appointment. 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 Patient does not plan on returning to [place] for suture removal. There are 4 total [...] visit tomorrow. Theo (more content not included)... [facility] 09-11-2022 History of Presen t illness Narrative [...] range of motion/joint mobility and strength. [facility] Work Phone: 06-16-2022 Note HNO ID: [id number] Author: Jennifer Pryor MD Service: ? Author Type: Physician Type: Progress Notes Filed: 06/16/2022 12:43 PM Note Text: . [facility] [place] Note Patient name: Abdiel Carranza PCP: Seb [...] Diagnostic Studies: Chest CT without contrast 02/23/2022 [facility]: I personally reviewed the images as [...] further follow-up needed Jennifer Pryor MD [facility] [place] [facility] 06-16-2022 History of Presen t illness Narrative Images from the original note were not included. . [facility] [place] Note Patient name: Abdiel Carranza PCP: Seb [...] Diagnostic Studies: Chest CT without contrast 02/23/2022 [facility]: I personally reviewed the images as [...] further follow-up needed Jennifer Pryor MD [facility] [place] documented in this encounter [facility] 06-13-2022 Miscellaneous Notes Patient wanting to schedule a new patient consult with Dr. Pryor. Patient had CT at [facility] (she has disc and reports) stating she had a nodule on her R lung along with a swollen lymph node. Please advise and contact patient at number listed. documented in this encounter [facility] 05-09-2022 Note Therapy Diagnosis Assessed Snapping [...] The patient i (more content not included)... [facility] 02-09-2022 History of Presen t illness Narrative [...] range of motion/joint mobility and strength. [facility] Work Phone: 02-09-2022 Reason for visit Narrative Initial Evaluation, Post-Op R shoulder endoscopic scapular bursectomy and decompression 02/09/2022 . R shoulder endoscopic scapular bursectomy and decompression 02/09/2022.Referred by: Dr. Perez [facility] Work Phone: [facility] Work Phone: 1(346) 285-313209-24-2021 Instructions* Patient Instructions* ANUPAM GaldamezOLOGIST - 05/20/2021 [...] may also take aspirin, Tylenol or other eelu-awh-ibnaqgc pain relievers as directed on the package. [...] appointment with the doctor. documented in this [id number] History of Present illness Narrative* Brett Burgos [...] where the nail was split with an Sierra Leonean anvil distally to approximately 3 mm off [...] where the nail was split with an [place]an anvil distally to approximately 3 mm off [...] one week for f/u documented in this [id number] History of Present illness Narrative* Brett Burgos [...] Friends and Family: Not on file Attends [employer] Services: Not on file Active Member of [...] waxing and waning character. documented in this [id number] NotePROCEDURE DETAILS Preoperative Diagnosis: Scapulothoracic bursitis of right shoulder Postoperative Diagnosis: Scapulothoracic bursitis of right shoulder Surgeon: Wesley Coburn Resident/Fellow/Other Malted Milk Mixer: Tamir George Procedure: Right Shoulder Scapulothoracic Bursectomy [...] [facility] We performed a huddle. Confirmed right [...] Note, Chart Review, Note Completion Tiffanie Jett (MOTORCYCLE MECHANIC APPRENTICE-[employer] COMMUNICATIONS SERGEANT) (Signed 09-Feb-2021 14:00) Authored: Post-Operative Note, Chart Review, Note Completion Last Updated: 09-Feb-2021 17:33 by Wesley Coburn)[facility] 02-09-2021 History of Present illness NarrativeRight shoulder scapulothoracic bursectomy on 02/09/21 for bursitis.[facility] [address] Work Phone: 1(351) 293-269406-16-2021 History of Present illness Narrative* ABDIEL CARRANZA [...] daily home therapyfor elbow, wrist and hand. [facility] Work Phone: 1(195) 512-375406-16-2021 History of Present illness Narrative* S/P R [...] range of motion/joint mobility and strength. [facility] Work Phone: 1(236) 627-220106-16-2021 History of Present illness Narrative* ABDIEL CARRANZA [...] that the shoulder pain has improved some. [facility]le[facility] Work Phone: 1(901) 461-944606-16-2021 History of Present illness Narrative* ABDIEL CARRANZA [...] that the shoulder pain has improved some. FU-Rvxwtlscydam-[facility] [address] Work Phone: 1(504) 678-750306-16-2021 History of Present illness Narrative* ABDIEL CARRANZA [...] been able to sleep through the night. [facility] [place] [address] DO Work Phone: [phone]) 264-293506-16-2021 NoteHistory & Physical Reviewed: /Lactating: Are You [...] History & Physical Reviewed, Consent Tiffanie Jett (MOTORCYCLE MECHANIC APPRENTICE-[employer] COMMUNICATIONS SERGEANT) (Signed 09-Feb-2021 10:52) Authored: History & Physical Reviewed, Consent Last Updated: 09-Feb-2021 16:22 by Wesley Coburn) References: 1. Data Referenced From Patient Profile - Preop v2 09-Feb-2021 09:26[facility]05-04-2021 History of Present illness NarrativePt presents to office c/o of worsening dry cough the past few weeks. She states the cough is worse at night and she has dyspnea on exertion and while coughing. She is in the process of remodeling herhome and has been sanding and working with [employer]. She has been treating her cough with [...] asthma, nasal congestion, sore throat, or ear pain.[facility] Work Phone: [phone]) 433-130403-17-2021 History of Present illness NarrativeShe presents for [...] her other arm. This arm has had surgery.[facility] Work Phone: [phone] History of Present illness NarrativePatient was identified by name and date. IASTM/STM okayed to add to POC per physical therapist consult and completed to reduce soft tissue restrictions at R upper cervical musculature.After manual therapy noted pain level at neck and R scap 3/10. She completed all therex without c/o. [facility] Work Phone: Evaluation note* Diagnosis Ingrown nail of great toe of left foot- Primary Ingrown nail of great toe of right foot [facility] Diagnosis Ingrown nail of great toe of left foot- Primary Ingrown nail of great toe of right foot [facility] noteThere may be information available, but it has not been provided by the sender.[facility] Work Phone: Evaluation note* Diagnosis Lung nodules- Primary Other nonspecific abnormal finding of lung field [facility] Neck swelling- Primary Swelling, mass, or lump in head and neck Abnormal TSH Chronic neck pain Cervicalgia Nodule of right lung Other diseases of lung, not elsewhere classified documented in this encounter [facility] Work Phone: Evaluation note* Diagnosis Acute gastroenteritis- Primary Other and unspecified noninfectious gastroenteritis and colitis Diarrhea, unspecified type documented in this encounter [facility] Work Phone: Evaluation note* Diagnosis Diarrhea, unspecified type- Primary documented in this encounter [facility] Work Phone: History of Present illness Narrative* ABDIEL RYAN is a pleasant 25 year old ulbg-vhgx-vjjekzyc 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 This has been bothering her for over 2 years. She has recently completed 7 weeks of physical therapy and dry needling which provided some relief but it was not sustained. She also saw the [facility] [place] and was told that her pain was [...] I signed and scanned into the charttoday. 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 This has been bothering her for over 2 years. She has recently completed 7 weeks of physical therapy and dry needling which provided some relief but it was not sustained. She also saw the [facility] [place] and was told that her pain was [...] I signed and scanned into the charttoday. 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 This has been bothering her for over 2 years. She has recently completed 7 weeks of physical therapy and dry needling which provided some relief but it was not sustained. She also saw the [facility] [place] and was told that her pain was [...] all reviewed and are as per the lingle patient [facility] history questionnaire form that I signed and scanned into the charttoday. [facility] Work Phone: History of Present illness NarrativeTightness noted R shoulder IR. no c/o increased pain with ther ex and manual therapy. Pt. entered facility with sling donned. Reviewed HEP and how often she should wear her sling at home. [facility] Work Phone: History of Present illness [...] complete today's treatment with some difficulty. [facility] Work Phone: History of Present illness NarrativePatient was identified by name and date. IASTM/STM completed to reduce soft tissue restrictions at R side lower and upper cervical musculature. Consulted physical therapist Luanne Mario for DN. She was able to demo improved R shoudler and cervical ROM after manual therapy. [facility] Work [facility]: History of Present illness NarrativePatient identity confirmed today with name/. emphasized R pec min release today; also stretch the R GH jt into IR; modified exercise to work through th surgical area previous to STW; the R pec minis tight and tender.[facility] Work Phone: History of Present illness NarrativePatient identity confirmed today with name/. Emphasized scapular control with postural exercises. Trialed thermostim today to address tissue restriction in UT, parascapular muscles and pec, decreased tissue restriction noted at end of session. PT Tre performed DN on patient at end of session.[facility] Work Phone: History of Present illness NarrativePatient was identified by name and date. IASTM/STM completed to reduce soft tissue restrictions at R upper and lower cervical musculature. She was able to progress her program and added prone unweighted scapular stabilization exercises with quick fatigue.[facility] Work Phone: History of Present illness NarrativeShe presents today for follow up on depression and anxiety. She is feeling much better. She does not want to be on the medication forever. We discussed possibly trying to get off of it on [place] break. 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 She is feeling much better. She does not want to be on the medication forever. We discussed possibly trying to get off of it on [place] break. 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 Denies any pain. [facility] Work Phone: History of Present illness NarrativePatient confirmed name and date of . Patient able to progress to R GH strengthening with good tolerance. Some discomfort in R UT with ER walkouts using orange, reduced to peach band and patient was able to complete 10 reps. Good ROM with PROM. HEP given along with bands, good understanding expressed. [facility] Work Phone: History of Present illness Narrative* Abdiel returns for CT chest results. * Lung nodules found incidental on imaging done by her ortho: Repeat CT of lung to assess nodules. Reviewed report with patient. [facility] [address] DO Work Phone: History of Present illness Narrative* Abdiel returns for CT chest results. * Lung nodules found incidental on imaging done by her ortho: Repeat CT of lung to assess nodules. Reviewed report with patient. he denies any shortness of breath, and is a non-smoker. [facility] [address] DO Work Phone: History of [...] prone with poor eccentric control and quick fatigue.[facility] Work Phone: History of Present illness NarrativePatient identified by name and . IASTM/STM completed to reduce soft tissue restrictions in R lower cervical and shoulder musculature. After manual therapy she reported pain decreased to 1/10. During prone unweighted exercises demo's quick fatigue. LAVINIA Jeffries All clinical decision makingand treatment directly supervised by Cherise oPwers PTA 5122.[facility] [address] Work Phone: History of Present illness [...] understanding of all edu provided concerning TDN. [facility] Work Phone: History of Present illness [...] treatment directly supervised by Cherise Powers PTA 5122.[facility] Work Phone: History of Present illness NarrativePatient was identified by name and date. This session able to progress scap stability exercises and add quadruped activities with reports of fatigue only.[facility] Work Phone: History of Present illness NarrativePatient was identified by name and date. This session focus on manual work as patient had 2 week break from therapy and increased Sxs noted. IASTM/STM and cupping completed to reduce soft tissue restrictions at R shoulder and cervical musculature. She was bale to complete all UE PREs without c/o. [facility] Work Phone: History of Present illness NarrativePatient was identified by name and date. IASTM/STM completed to reduce soft tissue restrictions along medial border of scap. Consulted physical therapist (DT) for dry needling to address spasm along medial border of R scap. After manual therapy and dry needling she was able to progress scapular stability and added theraband exercises without c/o.[facility] Work Phone: History of Present illness NarrativePatient was identified by name and date. This session able to progress UE PREs and scap stability exercises with c/o fatigue only.[facility] Work Phone: History of Present illness NarrativePatient was identified by name and date. IASTM/STM completed to reduce soft tissue restrictions at R shoulder blade musculature. Notes after manual she obtained midline shoulder and cervical position. Completed all UE PREs with signs of fatigue only.[facility] Work Phone: History of Present illness NarrativePatient was identified by name and date. IASTM/STM completed to reduce soft tissue restrictions to R scapular and lower cervical musculature. After manual she was able to demo supine shoulder flexion WNL and denied pain. Completed all UE PREs without c/o.[facility] Work Phone: History of Present illness [...] to complete today's treatment with ease. [facility] Work Phone: History of Present illness NarrativePatient identified by name and date of . Patient demonstrated good understanding of HEP with review. She demonstrated good ROM with PROM and cues to relax at times. Added UT stretch secondary topalpable tension and report of discomfort.[facility] Work Phone: History of Present illness NarrativePatient was identified by name and date. IASTM/STM and cupping completed to reduce soft tissue restrictions in R lower cervical and shoulder musculature. After manual therapy she demo'd all shoulder planes WNL.[facility] Work Phone: History of Present illness Narrative* Pt. with fair tolerance with session this date. Pt. notes discomfort with right scapula, bottom incision. Verbal cues needed with alfonso PAVON exercises. Fair tolerance with manual therapies this date, no c/o increased sx.s noted. * Response to treatment: decreased pain. * Patient was able to complete today's treatment with some difficulty. [facility] Work Phone: Hislcjo of Present illness NarrativePatient identity confirmed today with name/. will hold PRE until next week; the patient was encouraged to continue consistent icing at days end per the patient the surgeon said to expect fatigue with rehab (but did not mention 6/10 pain) so PRE will be held until next week. [facility] Work Phone: History of Present illness NarrativePatient was identified by name and date. IASTM/STM completed to reduce soft tissue restrictions in R upper back and shoulder musculature. She reported decreased tightness and pain after manual therapy. Completed all exercises without c/o.[facility] Work Phone: History of Present [...] treatment directly supervised by Cherise Powers PTA 5122.[facility] Work Phone: History of Present [...] treatment directly supervised by Cherise Powers PTA 5122.[facility] Work Phone: History of Present illness NarrativePatient was identified by name and date. Today able to progress resistance with T band exercises with no c/o increased Sxs. She noted fatigue after session. Discussed progression of HEP and shewill begin unweighted prone stability exercises. She voiced good understanding with instruction.[facility] Work Phone: History of Present illness NarrativePatient was identified by name and date. Consulted physical therapist (DT) for DN to address spasm in R scap musculature. IASTM/STM completed to reduce soft tissue restrictions in R shoulder/scap musculature. After manual therapy she denied tightness. Progress scap stability exercises withoutc/o.[facility] Work Phone: History of Present illness NarrativePatient was identified by name and date. IASTM/STM completed to reduce soft tissue restrictions in R cervical and scap musculature. After manual therapy she denied pain and tightness. She was able to complete prone scap stability exercises with minimal signs of fatigue.[facility] Work Phone: History of Present illness Narrative* Pt. with good tolerance with TE this date, increased reps with IR/ER IASTM to the right scapula which patient has tightness present. Pt. given cues with prone TE. * Response to treatment: decreased pain. * Patient was able to complete today's treatment with some difficulty. [facility] Work Phone: History of Present illness [...] weight during prone scap stability exercises without c/o.[facility] Work Phone: Hisnsdz of Present illness Narrative* Patient with tightness [...] and improved knowledge and understanding of condition. [facility] Work Phone: Hisqwri of Present illness Narrative* Patient identity confirmed today with name/. see goals; good ROM and strength gains; still C/O reduced crepitus with mildly reduced max sx levels; ongoing HEP reviewed and updated today. * Response to treatment: improved flexibility, improved tissue mobility and improved knowledge and understanding of condition. [facility] Work Phone: history of Present illness Narrative* Patient identity confirmed today with name/. see goals; good ROM and strength gains; still C/O reduced crepitus with mildly reduced max sx levels; ongoing HEP reviewed and updated today. * Response to treatment: improved flexibility, improved tissue mobility and improved knowledge and understanding of condition. [facility] Work Phone: History of Present illness [...] and improved knowledge and understanding of condition. [facility] Work Phone: History of Present illness NarrativePatient was identified by name and date. Today noted very localized region of muscle tightness at incision. Consulted physical therapist (DT) for DN to address. Progressed CKC strengthening andprone B/L scap exercises and noted quick fatigue. This session demo'd planks vs modified plank without c/o.[facility] Work Phone: History of Present illness NarrativePatient identified by date of and name. She is able to perform planks in quadruped with notedfatigue. Most challenged with T band ER/IR in small ROM. Completed all stability exercises without c/o. Anita REAA. All clinical decision making and treatment directly supervised by Cherise Powers THREAD GRINDER TOOL 5122.[facility] Work Phone: History of Present illness NarrativePatient was identified by name and date. Consulted physical therapist (DT)for DN to address spasm more localized along R medial border of scap and UT. After DN she was able to complete all stability and UE PREs without c/o.[facility] Work Phone: History of Present illness Narrative* Lexie Nguyen APRN-[employer] COMMUNICATION[employer] SERGEANT - 06/05/2023 1:20 PM EDT Subjective Patient [...] Follow [facility] as [facility] Reason for visit Narrative* Initial Evaluation . S/P R bursectomy/scapulectomy. 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 Occasional wrong-word or sound-like [...] Procedures CT chest wo IV contrast Lexie Nguyne, MOTORCYCLE MECHANIC APPRENTICE-[employer] COMMUNICATIONS SERGEANT [address] [place] [address] Referral ID Status Reason Start Date Expiration Date Visits Requested Visits Authorized [id number] Authorized Perform Procedure 02/21/2023 08/20/2023 1 1 Specialty Diagnoses / Procedures Referred By Contac t Referred To Contact Radiology Diagnoses Chronic neck pain Procedures XR cervical spine complete 4-5 views Lexie Nguyen, TESSIE-[employer] COMMUNICATIONS SERGEANT [address] [place] [address] Referral ID Status Reason Start Date Expiration Date Visits Requested Visits Authorized [id number] Authorized Perform Procedure 02/21/2023 08/20/2023 1 1 Specialty Diagnoses / Procedures Referred By Contac t Referred To Contact Radiology Diagnoses Neck swelling Procedures US head neck soft tissue Lexie Nguyen, MOTORCYCLE MECHANIC APPRENTICE-[employer] COMMUNICATIONS SERGEANT [address] [place] [address] Referral ID Status Reason Start Date Expiration Date Visits Requested Visits Authorized [id number] Authorized Perform Procedure 02/21/2023 08/20/2023 1 1 Additional Source Comments INFORMATION SOURCE (unrecogn ized section and content) DATE CREATED AUTHOR AUTHOR'S ORGANIZ ATION 02/18/2021 [facility] DATE CREATED AUTHOR AUTHOR'S ORGANIZ ATION 05/21/2021 [facility] DATE CREATED AUTHOR AUTHOR'S ORGANIZ ATION 03/04/2022 [facility] DATE CREATED AUTHOR AUTHOR'S ORGANIZ ATION 12/03/2022 [facility] DATE CREATED AUTHOR AUTHOR'S ORGANIZ ATION 12/04/2022 [facility] DATE CREATED AUTHOR AUTHOR'S ORGANIZ ATION 04/07/2023 [facility] DATE CREATED AUTHOR AUTHOR'S ORGANIZ ATION 06/07/2023 [facility] DATE CREATED AUTHOR AUTHOR'S ORGANIZ ATION 07/18/2023 [facility] Reason for Visit (unrecogniz ed section and [...] Reason Comments Follow-up DISCUSS LABS DONE AT [facility] IN [place] [place] AND [place] RT SIDE ON NECK Reason Comments Abdominal Cramping 4 days Diarrhea X 3 days associated with a fever Reason Comments Diarrhea Works at [employer] nguyen has been confirmed cases of C-Diff, pt has had diarrhea x 1 week. Care Teams (unrecognized sec tion and content) Form Builder Helper Relationship Specialty Start Date End Date Seb Wild January, [employer] COMMUNICATIONS SERGEANT [address] [place] [address] PCP - General Nurse Practitioner 10/03/19 Form Builder Helper Relationship Specialty Start Date End Date Seb Wild [address] [place] [address] PCP - General Family Medicine 06/14/22 Form Builder Helper Relationship Specialty Start Date End Date Seb Wild, MOTORCYCLE MECHANIC APPRENTICE.[employer] COMMUNICATIONS SERGEANT [address] [place] [address] PCP - General Family Medicine 06/14/22 Form Builder Helper Relationship Specialty Start Date End Date Beverley Phillip, MOTORCYCLE MECHANIC APPRENTICE-[employer] COMMUNICATIONS SERGEANT [address] [address] PCP - MMO ACO PCP 05/27/22 Lexie Nguyen, MOTORCYCLE MECHANIC APPRENTICE-[employer] COMMUNICATIONS SERGEANT [address] [place] [address] PCP - General Internal Medicine 01/10/23 Form Builder Helper Relationship Specialty Start Date End Date Lexie Nguyen, MOTORCYCLE MECHANIC APPRENTICE-[employer] COMMUNICATIONS SERGEANT [address] [place] [address] PCP - General Internal Medicine 01/10/23 Lexie Nguyen, MOTORCYCLE MECHANIC APPRENTICE-[employer] COMMUNICATIONS SERGEANT [address] [place] [address] PCP - MMO ACO PCP 01/25/23 Form Builder Helper Relationship Specialty Start Date End Date Lexie Nguyen, MOTORCYCLE MECHANIC APPRENTICE-[employer] COMMUNICATIONS SERGEANT [address] [place] [address] PCP - General Internal Medicine 01/10/23 Lexie Nguyen, MOTORCYCLE MECHANIC APPRENTICE-[employer] COMMUNICATIONS SERGEANT [address] [place] [address] [phone] (work) PCP - MMO ACO PCP 01/25/23 Source Comments (unrecognize d section and content) In the event this informatio n is protected by the Federal Confidentiality of Alcohol and Drug Abuse Patient Records regulations: The Federal rules restrict any use of the information to criminally investigate or prosecute any alcohol or drug abuse patient.[facility] the event this information is protected by the Federal Confidentiality of Alcohol and Drug Abuse Patient Records regulations: The Federal rules restrict any use of the information to criminally investigate or prosecute any alcohol or drug abuse patient.[facility] the event this information is protected by the Federal Confidentiality of Alcohol and Drug Abuse Patient Records regulations: The Federal rules restrict any use of the information to criminally investigate or prosecute any alcohol or drug abuse patient.[facility] <item> Privacy Markings (unrecogniz ed section [...] BE BASED ON THE PRIMARY CLINICAL RECORDS. [facility]. provides no warranty or guarantee of the accuracy or completeness of information in this document.
[2023-09-17 18:53] LABS: Bacteria 0 SEEN /hpf (None Seen); Mucous, Urine 0 SEEN /hpf (<or=2+); Red Blood Cells-Urine 0 SEEN /hpf (0-5); Squamous Epithelial Cells - UA 0 SEEN /hpf (5-10); White Blood Cells 0 SEEN /hpf (0-5)
[2023-09-17 19:01] LABS: Color, Urine Yellow (Yellow); Glucose, Dipstick Normal (Normal); Ketone-Dipstick 5 mg/dl (Negative); Leukocyte Esterase-Dipstick Negative /ul (Negative); Nitrite-Dipstick Negative (Negative); Occult Blood-Urine 50 /ul (Negative); Protein-Dipstick Negative (Negative); Specific Gravity, Urine 1.015 (1.002-1.030); Urine Bilirubin Dipstick Negative (Negative); Urine Clarity Clear (Clear); Urine Urobilinogen Normal (Normal)
[2023-09-17 19:12] LABS: Anion Gap 7 (5-15); BUN 9 mg/dL (7-18); BUN/Creat Ratio 13.8 RATIO (10-20); Calcium,Total 9.4 mg/dL (8.5-10.1); Chloride 106 mmol/L (98-107); Creatinine, Serum 0.65 mg/dL (0.55-1.02); EST Glomerular Filtration Rate 114 mL/min (>60); Est Glom Filt Rate - Afr Amer 138 mL/min (>60); Estimated Creatinine Clearance 114.44 ml/min; Glucose 137 mg/dL (74-106); Potassium 3.8 mmol/L (3.5-5.1); Sodium Level 137 mmol/L (136-145)
[2023-09-17 19:48] LABS: Absolute Lymphocyte Count 1.93 X10^3/uL (0.83-4.51); Absolute Neutrophil Count 4.1 X10^3/uL (2.0-7.7); Basophil# 0.02 X10^3/uL; Basophil% 0.3 % (0-1); Eosinophil# 0.03 X10^3/uL; Eosinophils% 0.4 % (0-5); Hematocrit 36.3 % (37-47); Hemoglobin 12.6 g/dL (12.0-15.0); Lymphocyte # 1.93 X10^3/ul (0.83-4.51); Lymphocyte % 28.6 % (19-41); Mean Corp Hgb Conc 34.7 g/dL (32-36); Mean Corpuscular Hgb 29.7 pg (27.0-32.0); Mean Corpuscular Volume 85.6 fL (81-99); Mean Platelet Vol. 9.5 fl (6.2-12.0); Monocyte# 0.61 X10^3/uL; Monocyte% 9.1 % (0-10); NRBC Flagged by Analyzer 0 % (0-5); Neutrophil # 4.12 X10^3/uL (2.7-7.7); Neutrophil % 61.2 % (47-70); Platelet Count 177 K/mm3 (150-450); RBC Distribution Width SD 37.7 fl (35.1-43.9); Red Blood Count 4.24 M/mm3 (4.2-5.4); White Blood Count 6.7 K/mm3 (4.4-11.0)
[2023-09-17 19:51] LABS: hCG Titer Quant., Serum 78982 mIU/mL (1-3)
[2023-09-17 20:28] VITALS: BP 124/76; PULSE 87; RESP 16; O2SAT 99
== END 2023-09-17 20:30 | disposition home or self-care (01) ==
PROVIDERS: Emergency Provider Emergency Medicine; PCP Nurse Practitioner Family; Visit Provider Emergency Medicine
DX: O20.0 Threatened abortion (principal); O26.851 Spotting complicating pregnancy, first trimester; Z3A.12 12 weeks gestation of pregnancy
CPT/HCPCS: 76817; 80048; 81001; 84702; 85025; 99283; A4216

== ENCOUNTER → 2023-09-24 | Outpatient (CLI) | payer OTHER, SELFPAY ==
--- OUTSIDE RECORDS SUMMARY | 2023-09-24 14:13 | XMS RPT_ITS | CCD ---
Author Name Unknown Address [address] [place] [address] Organization [facility] Care Team Providers Care Glycerin Supervisor Name Role Phone Jeanna Pang [facility] Unavailab Jeanna Rodriguez Admitting Unavailable Missael Gonzales Attending Unavailable [facility] January Primary Care Unavailab Missael Whalen Admitting Unavailable Missael Gonzales Attending Unavailable [facility] January Referring Unavailab [facility]osey [facility] January Primary Care Unavailab Missael Whalen Admitting Unavailable [facility] January Attending Unavailab josey [facility] January Primary Care Unavailab le [facility] January Admitting Unavailab josey [facility] Shari Primary Care Provider [phone] Seb Wild Unavailable Unavailable Jeanna Page Unavailable Unavailable AbernathySeb Unavailable Unavailable Herman Shaffer Unavailable Unavailable Lawrence Cunha Unavailable Unavailable Seb Wild Unavailable Unavailable [facility] Provider BRETT BURGOS JR. Attending Unavailable [facility] Primary Care Unavailab BRETT Askew JR. Attending Unavailable [facility] Primary Care Unavailab Zach Esquivel MD Unavailable Unavailable Primary Care Provider Unavailabl e Jun[facility] Primary Care Provider Beverley Phillip K Unavailable Beverley Phillip Unavailable Unavailable Yoav, Makayla Unavailable Unavailable Caleb Hoff Unavailable Unavailable Abernathy WORK ADJUSTMENT INSTRUCTOR.CAR OILER, Seb Primary Care Provider JENNIFER PRYOR Attending Unavailable HARPSTER, SEB Primary Care Unavailable Phillip WORK ADJUSTMENT INSTRUCTOR-CAR OILER, Beverley K Unavailable Patrick WORK ADJUSTMENT INSTRUCTOR-CAR OILER, Lexie D Primary Care Provider Patrick, Ms. [...] Chris, Dr. Barrett Olson Attending Unavaila ble Abernathy, Ms. Seb Shari Primary Care Unava ilable Chris, Dr. Barrett Olson Attending Unavaila ble Abernathy, Ms. Seb Shari Primary Care Unava ilable [...] Chris, Dr. Barrett Olson Attending Unavaila ble Abernathy, Ms. Seb Shari Primary Care Unava ilable Phillip, Ms. Beverley Dalia Primary Care Unavailable Luis Eduardo, Dr. Caleb Lemos Attending Unavail able Chris, Dr. Barrett Olson Attending Unavaila ble Abernathy, Ms. Seb Shari Primary Care Unava ilable [...] Chris, Dr. Barrett Olson Attending Unavaila ble Abernathy, Ms. Seb Shari Primary Care Unava ilable [...] Caleb Lemos Attending Unavail able Phillip, Ms. Bevelrey Dalia Primary Care Unavailable Chris, Dr. Barrett Olson Attending Unavaila ble Abernathy, Ms. Seb Shari Primary Care Unava ilable [...] [PLANT POLLENS] allergy to substance hay fever [facility] Work Phone: Medications Current Medications Medication Drug Class(es) Dates Sig (Normalized) Sig (Original) [id number] 200 actuat albuterol 0.09 mg/actuat metered dose [...] 09:09-0400 Body height 154.9 cm German Olivares APRNLoopIt Work Phone: [facility] 06-07-2023 09:09-0400 Body mass index (BMI) [Ratio] 27.44 kg/m2 German Olivares APRN-CAR OILER Work Phone: [facility] 06-07-2023 09:09-0400 Body temperature 98.2 [degF] German Olivares APRN-CAR OILER Work Phone: [facility] 06-07-2023 09:09-0400 Body weight 65.86 kg German Olivares APRN-CAR OILER Work Phone: [facility] 06-07-2023 09:09-0400 Diastolic blood pressure 75 mm[Hg] German Olivares APRN-CAR OILER Work Phone: [facility] 06-07-2023 09:09-0400 Heart rate 96 /min German Olivares APRN-CAR OILER Work Phone: [facility] 06-07-2023 09:09-0400 Respiratory rate 16 /min German Olivares APRN-CAR OILER Work Phone: [facility] 06-07-2023 09:09-0400 SaO2% (BldA) [Mass fraction] 98 % German Olivares WORK ADJUSTMENT INSTRUCTOR-CAR OILER Work Phone: [facility] 06-07-2023 09:09-0400 Systolic blood pressure 107 mm[Hg] German Olivares WORK ADJUSTMENT INSTRUCTOR-CAR OILER Work Phone: [facility] 02-21-2023 10:23-0400 Body height 154.9 cm Lexie Nguyen WORK ADJUSTMENT INSTRUCTOR-CAR OILER Work Phone: [facility] 02-21-2023 10:23-0400 Body mass index (BMI) [Ratio] 28.34 kg/m2 Lexie Nguyen WORK ADJUSTMENT INSTRUCTOR-CAR OILER Work Phone: [facility] 02-21-2023 10:23-0400 Body weight 68.04 kg Lexie Nguyen WORK ADJUSTMENT INSTRUCTOR-CAR OILER Work Phone: [facility] 02-21-2023 10:23-0400 Diastolic blood pressure 74 mm[Hg] Lexie Nguyen WORK ADJUSTMENT INSTRUCTOR-CAR OILER Work Phone: [facility] 02-21-2023 10:23-0400 Heart rate 70 /min Lexie Nguyen WORK ADJUSTMENT INSTRUCTOR-CAR OILER Work Phone: [facility] 02-21-2023 10:23-0400 Systolic blood pressure 106 mm[Hg] Lexie Nguyen WORK ADJUSTMENT INSTRUCTOR-CAR OILER Work Phone: [facility] 06-16-2022 08:06-0400 Body height 154.9 cm Jennifer Pryor MD Work Phone: [facility] 06-16-2022 08:06-0400 Body weight 113.67 kg Jennifer Pryor MD Work Phone: [facility] 06-16-2022 08:06-0400 Diastolic blood pressure 74 mm[Hg] Jennifer Pryor MD Work Phone: [facility] 06-16-2022 08:06-0400 Heart rate 85 /min Jennifer Pryor MD Work Phone: [facility] 06-16-2022 08:06-0400 Respiratory rate 12 /min Jennifer Pryor MD Work Phone: [facility] 06-16-2022 08:06-0400 SaO2% (BldA) [Mass fraction] 100 % Jennifer Pryor MD Work Phone: [facility] 06-16-2022 08:06-0400 Systolic blood pressure 106 mm[Hg] Jennifer Pryor MD Work Phone: [facility] 03-03-2022 13:44-0400 Body height 154.94 cm Seb Wild Work Phone: [facility] 205 DO Work Phone: 03-03-2022 13:44-0400 Body mass index (BMI) [Ratio] 28.91 kg/m2 Seb Wild Work Phone: [facility] 205 DO Work Phone: 03-03-2022 13:44-0400 Body surface area Derived from formula 1.69 m2 Seb Wild Work Phone: [facility] 205 DO Work Phone: 03-03-2022 13:44-0400 Body weight 69.4 kg Seb Wild Work Phone: [facility] 205 DO Work Phone: 03-03-2022 13:44-0400 Diastolic blood pressure 68 mm[Hg] Seb Wild Work Phone: [facility] 205 DO Work Phone: 03-03-2022 13:44-0400 Heart rate 80 /min Seb Wild Work Phone: [facility] 205 DO Work Phone: 03-03-2022 13:44-0400 Systolic blood pressure 102 mm[Hg] Seb Wild Work Phone: [facility] 205 DO Work Phone: 01-25-2022 15:29-0400 Body height 154.94 cm Seb Wild Work Phone: [facility] Work Phone: 01-25-2022 15:29-0400 Body mass index (BMI) [Ratio] 28.24 kg/m2 Seb Wild Work Phone: [facility] Work Phone: 01-25-2022 15:29-0400 Body surface area Derived from formula 1.67 m2 Seb Wild Work Phone: [facility] Work Phone: 01-25-2022 15:29-0400 Body weight 67.79 kg Seb Wild Work Phone: [facility] Work Phone: 01-25-2022 15:29-0400 Diastolic blood pressure 66 mm[Hg] Seb Wild Work Phone: [facility] Work Phone: 01-25-2022 15:29-0400 Heart rate 72 /min Seb Wild Work Phone: [facility] Work Phone: 01-25-2022 15:29-0400 SaO2% (BldA) [Mass fraction] 100 % Seb Wild Work Phone: [facility] Work Phone: 01-25-2022 15:29-0400 Systolic blood pressure 90 mm[Hg] Seb Wild Work Phone: [facility] Work Phone: 06-27-2021 15:37-0400 Body height 154.94 cm Seb Wild Work Phone: [facility] Work Phone: 06-27-2021 15:37-0400 Body mass index (BMI) [Ratio] 29.31 kg/m2 Seb Wild Work Phone: [facility] Work Phone: 06-27-2021 15:37-0400 Body surface area Derived from formula 1.7 m2 Seb Wild Work Phone: [facility] Work Phone: 06-27-2021 15:37-0400 Body temperature 98.4 [degF] Seb Wild Work Phone: [facility] Work Phone: 06-27-2021 15:37-0400 Body weight 70.37 kg Seb Wild Work Phone: [facility] Work Phone: 06-27-2021 15:37-0400 Diastolic blood pressure 60 mm[Hg] Seb Wild Work Phone: [facility] Work Phone: 06-27-2021 15:37-0400 Heart rate 77 /min Seb Wild Work Phone: [facility] Work Phone: 06-27-2021 15:37-0400 SaO2% (BldA) [Mass fraction] 99 % Seb Wild Work Phone: [facility] Work Phone: 06-27-2021 15:37-0400 Systolic blood pressure 108 mm[Hg] Seb Ericka Wild Work Phone: [facility] Work Phone: 05-20-2021 09:46-0400 Body temperature 97.2 [degF] Brett Leo Jr., DPM Work Phone: [facility] 05-20-2021 09:46-0400 Diastolic blood pressure 63 mm[Hg] Brett Leo Jr., DPM Work Phone: [facility] 05-20-2021 09:46-0400 Heart rate 83 /min Brett Leo Jr., DPM Work Phone: [facility] 05-20-2021 09:46-0400 Systolic blood pressure 100 mm[Hg] Brett Leo Jr., DPM Work Phone: [facility] 05-18-2021 15:26-0400 Body temperature 98.1 [degF] Brett Leo Jr., DPM Work Phone: [facility] 05-18-2021 15:26-0400 Diastolic blood pressure 74 mm[Hg] Brett Leo Jr., DPM Work Phone: [facility] 05-18-2021 15:26-0400 Heart rate 93 /min Brett Leo Jr., DPM Work Phone: [facility] 05-18-2021 15:26-0400 Systolic blood pressure 122 mm[Hg] Brett Leo Jr., DPM Work Phone: [facility] 04-21-2021 16:08-0400 Body height 154.94 cm Seb Wild Work Phone: [facility] Work Phone: 04-21-2021 16:08-0400 Body mass index (BMI) [Ratio] 28.81 kg/m2 Seb Ericka Abernathy Work Phone: [facility] Work Phone: 04-21-2021 16:08-0400 Body surface area Derived from formula 1.68 m2 Seb Barnett Abernathy Work Phone: [facility] Work Phone: 04-21-2021 16:08-0400 Body temperature 97.6 [degF] Seb Ericka Abernathy Work Phone: [facility] Work Phone: 04-21-2021 16:08-0400 Body weight 69.17 kg Seb Ericka Abernathy Work Phone: [facility] Work Phone: 04-21-2021 16:08-0400 Diastolic blood pressure 60 mm[Hg] Seb J Abernathy Work Phone: [facility] Work Phone: 04-21-2021 16:08-0400 Heart rate 62 /min Seb J Abernathy Work Phone: [facility] Work Phone: 04-21-2021 16:08-0400 SaO2% (BldA) [Mass fraction] 98 % Seb J Abernathy Work Phone: [facility] Work Phone: 04-21-2021 16:08-0400 Systolic blood pressure 98 mm[Hg] Seb Barnett Abernathy Work Phone: [facility] Work Phone: 03-31-2021 12:42-0400 Body height 154.94 cm Seb Wild Work Phone: [facility] Work Phone: 03-31-2021 12:42-0400 Body mass index (BMI) [Ratio] 28.64 kg/m2 Seb Wild Work Phone: [facility] Work Phone: 03-31-2021 12:42-0400 Body surface area Derived from formula 1.68 m2 Seb Wild Work Phone: [facility] Work Phone: 03-31-2021 12:42-0400 Body temperature 97.7 [degF] Seb Wild Work Phone: [facility] Work Phone: 03-31-2021 12:42-0400 Body weight 68.75 kg Seb Wild Work Phone: [facility] Work Phone: 03-31-2021 12:42-0400 Diastolic blood pressure 76 mm[Hg] Seb Wild Work Phone: [facility] Work Phone: 03-31-2021 12:42-0400 Heart rate 80 /min Seb Wild Work Phone: [facility] Work Phone: 03-31-2021 12:42-0400 Systolic blood pressure 132 mm[Hg] Seb Ricciter Work Phone: [facility] Work Phone: 02-23-2020 17:23-0400 BMI [...] [facility] Work Phone: NEGATED: Highlighted [id number] 15:37-0500 Body height 154.94 cm Gina Pavick AT [facility] Work Phone: NEGATED: Highlighted [id number] 15:37-0500 Body height 155 cm Gina Pavick AT [facility] Work Phone: NEGATED: Highlighted [id number] 15:37-0500 Body mass index (BMI) [Ratio] 28.82 kg/m2 Gina Pavick AT [facility] Work Phone: NEGATED: Highlighted [id number] 15:37-0500 Body temperature 97.2 [degF] Gina Pavick AT [facility] Work Phone: NEGATED: Highlighted [id number] 15:37-0500 Body temperature 97.16 [degF] Gina Pavick AT [facility] Work Phone: NEGATED: Highlighted [id number] 15:37-0500 Body weight 68.95 kg Gina Pavick AT [facility] Work Phone: NEGATED: Highlighted [id number] 15:37-0500 Body weight 69 kg Gina Pavick AT [facility] Work Phone: Encounters Encounter Date Encounter Type Care Provider Facility Start: 07-13-2023 End: 07-14-2023 ambulatory LEXIE Nguyen [facility] Start: 06-07-2023 End: 06-08-2023 ambulatory LEXIE Nguyen [facility] Start: 06-07-2023 End: 06-07-2023 Office outpatient visit 15 minutes German Olivares APRN-CAR OILER Work Phone: [facility] Procedures Date Procedure Procedure Detail [...] WRIGHT Start: 06-05-2023 OVA AND PARASITE EXAMINATION LEIXE NGUYEN Start: 06-05-2023 OVA/PARA + GIARDIA/CRYPTOSPORIDIUM ANTIGEN [...] - S ca or Plasma Lexie Hilarioley WORK ADJUSTMENT INSTRUCTOR-CAR OILER Work Phone: Start: 03-22-2022 Microscopic observat ion [Identifier] in Cervix by Cyto stain Lexie Nguyen WORK ADJUSTMENT INSTRUCTOR-CAR OILER Work Phone: Start: 09-28-2021 End: 09-28-2021 BP [...] f 2) Zoster Vaccines (1 of 2) [facility] Start: 01-12-2028 Lip[address] Panel [facility] Start: 03-22-2025 Screening for malign ant neoplasm of cervix [facility] Start: 02-22-2024 End: 02-22-2024 Thyrotropin [Units/volume] in Serum or Plasma Thyroid Stimulating Hormone Lab Routine Abnormal TSH Expected: 02/22/2024 (Approximate), Expires: 02/22/2024 [facility] Work Phone: Immunizations Immunization Date Immunization Notes Care Provider Bhavna thompson 06-17-2021 Pfizer-BioNTech COVI D-19 Vacc 30 MCG/0.3ML Intramuscular Suspension Seb Wild Work Phone: [facility] Work Phone: Payers Date Payer Category Payer Unknown [employer] PPO xxxxxxxxxxxx 2019-Present xxxxxxxxxxxx [id number] 2019 Unknown [employer] PPO [id number] 2019-Present [phone] [address] [place] [address] [id number] .[id number] 2019 Unknown [id number] 2018 Unknown 1994 Unknown [id number] 2.16.840.1.847899.3.579.2.717 1994 Unknown [id number] 2.16.840.1.491527.3.579.2.717 1994 Unknown [id number] 2.16.840.1.869502.3.579.2.717 1994 Unknown [id number] 2.16.840.1.083513.3.579.2.717 1994 Unknown [id number] 2.16.840.1.509653.3.579.2.903 1994 Unknown [id number] 2.16.840.1.435460.3.579.2.903 1994 Unknown [id number] 2.16.840.1.171778.3.579.2.106 9 1994 Unknown [id number] 2.16.840.1.469265.3.579.2.106 9 1994 Unknown [id number] 2.16.840.1.443762.3.579.2.106 9 1994 Unknown [id number] 2.16.840.1.865175.3.579.2.106 9 1994 Unknown [id number] 2.16.840.1.187999.3.579.2.106 9 1994 Unknown [id number] 2.16.840.1.370898.3.579.2.106 9 1994 Unknown [id number] 2.16.840.1.246315.3.579.2.106 9 1994 Unknown [id number] 2.16.840.1.164474.3.579.2.106 9 1994 Unknown [id number] 2.16.840.1.601942.3.579.2.106 9 1994 Unknown [id number] 2.16.840.1.170900.3.579.2.106 9 1994 Unknown [id number] 2.16.840.1.814560.3.579.2.106 9 1994 Unknown [id number] 2.16.840.1.188881.3.579.2.106 9 1994 Unknown [id number] 2.16.840.1.288125.3.579.2.106 9 1994 Unknown [id number] 2.16.840.1.397858.3.579.2.106 9 1994 Unknown [id number] 2.16.840.1.919100.3.579.2.106 9 1994 Unknown [id number] 2.16.840.1.341493.3.579.2.106 9 1994 Unknown [id number] 2.16.840.1.173672.3.579.2.106 9 1994 Unknown [id number] 2.16.840.1.222284.3.579.2.106 9 1994 Unknown [id number] 2.16.840.1.242206.3.579.2.106 9 1994 Unknown [id number] 2.16.840.1.222837.3.579.2.106 9 1994 Unknown [id number] 2.16.840.1.110391.3.579.2.106 9 1994 Unknown [id number] 2.16.840.1.820176.3.579.2.106 9 1994 Unknown [id number] 2.16.840.1.911832.3.579.2.106 9 1994 Unknown [id number] 2.16.840.1.454637.3.579.2.106 9 1994 Unknown [id number] 2.16.840.1.809578.3.579.2.106 9 1994 Unknown [id number] 2.16.840.1.658166.3.579.2.106 9 1994 Unknown [id number] 2.16.840.1.822977.3.579.2.106 9 1994 Unknown [id number] 2.16.840.1.358180.3.579.2.106 9 1994 Unknown [id number] 2.16.840.1.426716.3.579.2.106 9 1994 Unknown [id number] 2.16.840.1.682493.3.579.2.106 9 1994 Unknown [id number] 2.16.840.1.434213.3.579.2.106 9 1994 Unknown [id number] 2.16.840.1.919163.3.579.2.106 9 1994 Unknown [id number] 2.16.840.1.985636.3.579.2.106 9 1994 Unknown [id number] 2.16.840.1.319281.3.579.2.106 9 1994 Unknown [id number] 2.16.840.1.541496.3.579.2.106 9 1994 Unknown [id number] 2.16.840.1.401814.3.579.2.106 9 1994 Unknown [id number] 2.16.840.1.205980.3.579.2.106 9 1994 Unknown [id number] 2.16.840.1.221045.3.579.2.106 9 1994 Unknown [id number] 2.16.840.1.527535.3.579.2.124 4 1994 Unknown [id number] 2.16.840.1.756891.3.579.2.124 4 1994 Unknown [id number] 2.16.840.1.971915.3.579.2.124 4 1994 Unknown [id number] 2.16.840.1.597945.3.579.2.124 4 1994 Unknown [id number] 2.16.840.1.412286.3.579.2.124 4 1994 Unknown [id number] 2.16.840.1.404045.3.579.2.124 5 1994 Unknown [id number] 2.16.840.1.860740.3.579.2.124 5 1994 Unknown [id number] 2.16.840.1.252052.3.579.2.124 5 1994 Unknown [id number] 2.16.840.1.386890.3.579.2.124 5 1994 Unknown [id number] 2.16.840.1.957441.3.579.2.124 5 Social History Date Type Detail Facility Start: 09-28-2021 End: 09-28-2021 Tobacco smoking status KSIS Unknown if ever smoked [facility] Start: 1995 Sex Assigned At Not on file [facility] Start: 02-21-2023 End: 06-05-2023 No alcohol use No alcohol use [facility] Start: 05-18-2021 End: 01-10-2023 Tobacco smoking status NHIS Never smoked tobacco [facility] Start: 05-18-2021 End: 01-10-2023 Tobacco use and exposure Smokeless tobacco non-user [facility] Start: 05-18-2021 End: 06-07-2023 Alcohol intake Lifetime non-drinker (finding) [facility] Start: 06-06-2022 End: 06-07-2023 Exposure to SARS-CoV-2 (event) Not sure [facility] Start: 02-21-2023 End: 06-05-[address] [facility] Start: 05-26-2023 End: 06-05-2023 Exposure to SARS-CoV-2 (event) Unable to assess [facility] Work Phone: NEGATED: Highlighted row - - [facility] Work Phone: NEGATED: Highlighted rowStart: 09-28-2021 End: 09-28-2021 Employment detail Employment detail [facility] Work Phone: Functional Status Date Assessment Result Facility NEGATED: Highlighted row Functional performance Functional status health issues are not documented Disease [facility] Work Phone: Mental Status Date Assessment Result Facility NEGATED: Highlighted row Cognitive function [Interpretation] Cognitive status health issues are not documented Disease [facility] Work Phone: Clinical Notes 11-03-2020 to 06-07-2023 German Olivares, WORK ADJUSTMENT INSTRUCTOR-[facility] - 06/07/2023 9:05 AM Alicia Nguyen, WORK ADJUSTMENT INSTRUCTOR-[facility] - 02/21/2023 10:20 AM EDTTelephone Encounter - Lexie Montgomery APRN.[facility] - 11/09/2022 12:15 PM EDT Note Date [...] Documentation Review Audit Reviewed by KENZIE KRAFT (Photovoltaic Installer) on 06/07/23 at 0910 Medication Order Taking? Sig Documenting Provider Last Dose Status ergocalciferol (Vitamin D-2) 1.25 MG (57973 UT) capsule [id number] No Take 1 capsule (50,000 Units) by mouth 1 (one) time per week. Historical Provider, Not Taking Active levocetirizine (Xyzal) 5 mg tablet [id number] No Take 1 tablet (5 mg) by mouth once daily in the evening. Patient not taking: Reported on 06/07/2023 MARILOU Flowers Not Taking Active metroNIDAZOLE (Flagyl) 500 mg tablet [id number] No Take 1 tablet (500 mg) by [...] or any new concerns. German Olivares CNP [facility] [phone] documented in this encounter [facility] Work Phone: 02-21-2023 History of Presen t illness Narrative Subjective Patient ID: Abdiel Carranza is a 27 y.o. female who presents for Follow-up (DISCUSS LABS DONE AT [facility] IN [place] AND [place] RT SIDE ON NECK). HPI: Presents today for C/O RIGHT NECK SWELLING X SEVERAL MONTHS modifying factors consists of HAS CHRONIC SHOULDER AND NECK PAIN associated symptoms consist of TENDER prior treatment consists of medication DRY NEEDLING TSH LEVEL 0.63 2 WEEKS AGO. LAB DONE BY [facility]. WILL RECHECK LAB LUNG NODULE- LAST [...] up as before documented in this encounter [facility] Work Phone: 11-09-2022 Miscellaneous Notes Teresa Baeza. This came to the [facility] pool. This may have landed in the wrong place? Please call with any questions. [phone] Lexie ZAMARRIPA Patient called requesting to schedule with Jatinder KATIE for a second opinion for Right breast pain. She is currently scheduled to be seen on 11/29/22. Please notify the patient if additional intake is required by the breast center prior to her appointment. documented in this encounter [facility] 09-28-2022 Note Provider Note: Procedure: Post [...] SIGNS: T PRBP SpO2O2(LPM) %FiO2 Method 28-Sep-2022 14:22:[id number]/82 99 MDM MDM/ED COURSE: Chief Complaint: suture [...] PCP would remove the sutures but the emergency communications officer said that that was not part [...] visit tomorrow. Theo (more content not included)... [facility] 09-11-2022 History of Presen t illness [...] range of motion/joint mobility and strength. [facility] Work Phone: 06-16-2022 Note HNO ID: [id number] Author: Jennifer Pryor MD Service: ? Author Type: Physician Type: Progress Notes Filed: 06/16/2022 12:43 PM Note Text: . [facility] Note Patient name: Abdiel Carranza PCP: Seb [...] Diagnostic Studies: Chest CT without contrast 02/23/2022 [facility]: I personally reviewed the images as [...] further follow-up needed Jennifer Pryor MD [facility] 06-16-2022 History of Presen t illness Narrative Images from the original note were not included. . [facility] [place] Note Patient name: Abdiel Carranza PCP: Seb [...] Diagnostic Studies: Chest CT without contrast 02/23/2022 [facility]: I personally reviewed the images as [...] further follow-up needed Jennifer Pryor MD [facility] documented in this encounter [facility] 06-13-2022 Miscellaneous Notes Patient wanting to schedule a new patient consult with Dr. Pryor. Patient had CT at [facility] (she has disc and reports) stating she had a nodule on her R lung along with a swollen lymph node. Please advise and contact patient at number listed. documented in this encounter [facility] 05-09-2022 Note Therapy Diagnosis Assessed Snapping [...] The patient i (more content not included)... [facility] 02-09-2022 History of Presen t illness Narrative [...] range of motion/joint mobility and strength. [facility] Work Phone: 02-09-2022 Reason for visit Narrative Initial Evaluation, Post-Op R shoulder endoscopic scapular bursectomy and decompression 02/09/2022 . R shoulder endoscopic scapular bursectomy and decompression 02/09/2022.Referred by: Dr. Perez [facility] Work Phone: [facility] Work Phone: 1(782) 565-164709-24-2021 Instructions* Patient Instructions* ANUPAM GaldamezOLOGIST - 05/20/2021 [...] may also take aspirin, Tylenol or other ybxi-xmp-lvrzkol pain relievers as directed on the package. [...] appointment with the doctor. documented in this [id number] History of Present illness Narrative* Brett Burgos [...] where the nail was split with an Cambodian anvil distally to approximately 3 mm off [...] where the nail was split with an Cambodian anvil distally to approximately 3 mm off [...] one week for f/u documented in this [id number] History of Present illness Narrative* Brett Burgos [...] Friends and Family: Not on file Attends [employer] Services: Not on file Active Member of [...] waxing and waning character. documented in this [id number] NotePROCEDURE DETAILS Preoperative Diagnosis: Scapulothoracic bursitis of right shoulder Postoperative Diagnosis: Scapulothoracic bursitis of right shoulder Surgeon: Wesley Coburn Resident/Fellow/Other Tapping Machine Operator: Tamir George Procedure: Right Shoulder Scapulothoracic [...] she was taken the operating room center [facility]. We performed a huddle. Confirmed right shoulder [...] Note, Chart Review, Note Completion Tiffanie Jett (WORK ADJUSTMENT INSTRUCTOR-CAR OILER) (Signed 09-Feb-2021 14:00) Authored: Post-Operative Note, Chart Review, Note Completion Last Updated: 09-Feb-2021 17:33 by Wesley Coburn)[facility] 02-09-2021 History of Present illness NarrativeRight shoulder scapulothoracic bursectomy on 02/09/21 for bursitis.[facility]-Naouiwxmcxen-Txgoq[address] Work Phone: 1(121) 720-794506-16-2021 History of Present illness Narrative* ABDIEL CARRANZA [...] daily home therapyfor elbow, wrist and hand. [facility]ep[facility] [address] Work Phone: [phone] 635-896706-16-2021 History of Present illness Narrative* S/P R [...] range of motion/joint mobility and strength. [facility] Work Phone: 1(790) 294-792006-16-2021 History of Present illness Narrative* ABDIEL CARRANZA [...] that the shoulder pain has improved some. GS-Qbljuzphnmnp-Gpkfis [address] Work Phone: 1(216) 689-944206-16-2021 History of Present illness Narrative* ABDIEL CARRANZA [...] that the shoulder pain has improved some. NB-Utzilvyponqj-Hlgikz [address] Work Phone: 1([phone]) 423-440906-16-2021 History of Present illness Narrative* ABDIEL CARRANZA [...] been able to sleep through the night. [facility] [address] DO Work Phone: [phone]) 802-276806-16-2021 NoteHistory & Physical Reviewed: /Lactating: Are You [...] History & Physical Reviewed, Consent Tiffanie Jett (WORK ADJUSTMENT INSTRUCTOR-CAR OILER) (Signed 09-Feb-2021 10:52) Authored: History & Physical Reviewed, Consent Last Updated: 09-Feb-2021 16:22 by Wesley Coburn) References: 1. Data Referenced From Patient Profile - Preop v2 09-Feb-2021 09:26[facility]05-04-2021 History of Present illness NarrativePt presents to office c/o of worsening dry cough the past few weeks. She states the cough is worse at night and she has dyspnea on exertion and while coughing. She is in the process of remodeling herhome and has been sanding and working with e994. She has been treating her cough with [...] asthma, nasal congestion, sore throat, or ear pain.[facility] Work Phone: [phone] History of Present illness NarrativeShe presents for [...] her other arm. This arm has had surgery.[facility] Work Phone: [phone]) 655-590603-10-2021 History of Present illness NarrativePatient was identified by name and date. IASTM/STM okayed to add to POC per physical therapist consult and completed to reduce soft tissue restrictions at R upper cervical musculature.After manual therapy noted pain level at neck and R scap 3/10. She completed all therex without c/o. [facility] Work Phone: Evaluation note* Diagnosis Ingrown nail of great toe of left foot- Primary Ingrown nail of great toe of right foot [facility] Diagnosis Ingrown nail of great toe of left foot- Primary Ingrown nail of great toe of right foot documented in this [facility] noteThere may be information available, but it has not been provided by the sender.[facility] Work Phone: Evaluation note* Diagnosis Lung nodules- Primary Other nonspecific abnormal finding of lung field [facility] Neck swelling- Primary Swelling, mass, or lump in head and neck Abnormal TSH Chronic neck pain Cervicalgia Nodule of right lung Other diseases of lung, not elsewhere classified documented in this encounter [facility] Work Phone: Evaluation note* Diagnosis Acute gastroenteritis- Primary Other and unspecified noninfectious gastroenteritis and colitis Diarrhea, unspecified type documented in this encounter [facility] Work Phone: Evaluation note* Diagnosis Diarrhea, unspecified type- Primary documented in this encounter 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 This has been bothering her for over 2 years. She has recently completed 7 weeks of physical therapy and dry needling which provided some relief but it was not sustained. She also saw the [facility] and was told that her pain was [...] I signed and scanned into the charttoday. 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 This has been bothering her for over 2 years. She has recently completed 7 weeks of physical therapy and dry needling which provided some relief but it was not sustained. She also saw the [facility] and was told that her pain was [...] I signed and scanned into the charttoday. 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 This has been bothering her for over 2 years. She has recently completed 7 weeks of physical therapy and dry needling which provided some relief but it was not sustained. She also saw the [facility] and was told that her pain was [...] all reviewed and are as per the [facility] history questionnaire form that I signed and scanned into the charttoday. [facility] 210 Work Phone: History of Present illness NarrativeTightness noted R shoulder IR. no c/o increased pain with ther ex and manual therapy. Pt. entered facility with sling donned. Reviewed HEP and how often she should wear her sling at home. [facility] Work Phone: History of Present illness Narrative* [...] complete today's treatment with some difficulty. [facility] Work Phone: History of Present illness NarrativePatient was identified by name and date. IASTM/STM completed to reduce soft tissue restrictions at R side lower and upper cervical musculature. Consulted physical therapist Luanne Mario for DN. She was able to demo improved R shoudler and cervical ROM after manual therapy. [facility] Work Phone: History of Present illness NarrativePatient identity confirmed today with name/. emphasized R pec min release today; also stretch the R GH jt into IR; modified exercise to work through th surgical area previous to STW; the R pec minis tight and tender.[facility] Work Phone: History of Present illness NarrativePatient identity confirmed today with name/. Emphasized scapular control with postural exercises. Trialed thermostim today to address tissue restriction in UT, parascapular muscles and pec, decreased tissue restriction noted at end of session. PT Tre performed DN on patient at end of session.[facility] Work Phone: History of Present illness NarrativePatient was identified by name and date. IASTM/STM completed to reduce soft tissue restrictions at R upper and lower cervical musculature. She was able to progress her program and added prone unweighted scapular stabilization exercises with quick fatigue.[facility] Work Phone: History of Present illness NarrativeShe presents today for follow up on depression and anxiety. She is feeling much better. She does not want to be on the medication forever. We discussed possibly trying to get off of it on [place] break. 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 She is feeling much better. She does not want to be on the medication forever. We discussed possibly trying to get off of it on [place] break. 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 Denies any pain. [facility] Work Phone: History of Present illness NarrativePatient confirmed name and date of . Patient able to progress to R GH strengthening with good tolerance. Some discomfort in R UT with ER walkouts using orange, reduced to peach band and patient was able to complete 10 reps. Good ROM with PROM. HEP given along with bands, good understanding expressed. [facility] Work Phone: History of Present illness Narrative* Abdiel returns for CT chest results. * Lung nodules found incidental on imaging done by her ortho: Repeat CT of lung to assess nodules. Reviewed report with patient. [facility] 205 DO Work Phone: History of Present illness Narrative* Abdiel returns for CT chest results. * Lung nodules found incidental on imaging done by her ortho: Repeat CT of lung to assess nodules. Reviewed report with patient. he denies any shortness of breath, and is a non-smoker. [facility] 205 DO Work Phone: History of Present [...] prone with poor eccentric control and quick fatigue.[facility] Work Phone: History of Present illness NarrativePatient identified by name and . IASTM/STM completed to reduce soft tissue restrictions in R lower cervical and shoulder musculature. After manual therapy she reported pain decreased to 1/10. During prone unweighted exercises demo's quick fatigue. LAVINIA Jeffries All clinical decision makingand treatment directly supervised by Cherise Powers PTA 5122.[facility] [address] Work Phone: History of Present illness [...] understanding of all edu provided concerning TDN. [facility] Work Phone: History of Present [...] treatment directly supervised by Cherise Powers PTA 5122.[facility] Work Phone: History of Present illness NarrativePatient was identified by name and date. This session able to progress scap stability exercises and add quadruped activities with reports of fatigue only.[facility] Work Phone: History of Present illness NarrativePatient was identified by name and date. This session focus on manual work as patient had 2 week break from therapy and increased Sxs noted. IASTM/STM and cupping completed to reduce soft tissue restrictions at R shoulder and cervical musculature. She was bale to complete all UE PREs without c/o. [facility] Work Phone: History of Present illness NarrativePatient was identified by name and date. IASTM/STM completed to reduce soft tissue restrictions along medial border of scap. Consulted physical therapist (DT) for dry needling to address spasm along medial border of R scap. After manual therapy and dry needling she was able to progress scapular stability and added theraband exercises without c/o.[facility] Work Phone: History of Present illness NarrativePatient was identified by name and date. This session able to progress UE PREs and scap stability exercises with c/o fatigue only.[facility] Work Phone: History of Present illness NarrativePatient was identified by name and date. IASTM/STM completed to reduce soft tissue restrictions at R shoulder blade musculature. Notes after manual she obtained midline shoulder and cervical position. Completed all UE PREs with signs of fatigue only.[facility] Work Phone: History of Present illness NarrativePatient was identified by name and date. IASTM/STM completed to reduce soft tissue restrictions to R scapular and lower cervical musculature. After manual she was able to demo supine shoulder flexion WNL and denied pain. Completed all UE PREs without c/o.[facility] Work Phone: History of Present illness Narrative* [...] treatment with ease. [facility] Work Phone: History of Present illness NarrativePatient identified by name and date of . Patient demonstrated good understanding of HEP with review. She demonstrated good ROM with PROM and cues to relax at times. Added UT stretch secondary topalpable tension and report of discomfort.[facility] Work Phone: History of Present illness NarrativePatient was identified by name and date. IASTM/STM and cupping completed to reduce soft tissue restrictions in R lower cervical and shoulder musculature. After manual therapy she demo'd all shoulder planes WNL.[facility] Work Phone: History of Present illness Narrative* Pt. with fair tolerance with session this date. Pt. notes discomfort with right scapula, bottom incision. Verbal cues needed with alfonso PAVON exercises. Fair tolerance with manual therapies this date, no c/o increased sx.s noted. * Response to treatment: decreased pain. * Patient was able to complete today's treatment with some difficulty. [facility] Work Phone: Hisoapz of Present illness NarrativePatient identity confirmed today with name/. will hold PRE until next week; the patient was encouraged to continue consistent icing at days end per the patient the surgeon said to expect fatigue with rehab (but did not mention 6/10 pain) so PRE will be held until next week. [facility] Work Phone: History of Present illness NarrativePatient was identified by name and date. IASTM/STM completed to reduce soft tissue restrictions in R upper back and shoulder musculature. She reported decreased tightness and pain after manual therapy. Completed all exercises without c/o.[facility] Work Phone: History of Present illness NarrativePatient [...] treatment directly supervised by Cherise Powers PTA 5122.[facility] Work Phone: History of Present illness NarrativePatient [...] treatment directly supervised by Cherise Powers PTA 5122.[facility] Work Phone: History of Present illness NarrativePatient was identified by name and date. Today able to progress resistance with T band exercises with no c/o increased Sxs. She noted fatigue after session. Discussed progression of HEP and shewill begin unweighted prone stability exercises. She voiced good understanding with instruction.[facility] Work Phone: History of Present illness NarrativePatient was identified by name and date. Consulted physical therapist (DT) for DN to address spasm in R scap musculature. IASTM/STM completed to reduce soft tissue restrictions in R shoulder/scap musculature. After manual therapy she denied tightness. Progress scap stability exercises withoutc/o.[facility] Work Phone: History of Present illness NarrativePatient was identified by name and date. IASTM/STM completed to reduce soft tissue restrictions in R cervical and scap musculature. After manual therapy she denied pain and tightness. She was able to complete prone scap stability exercises with minimal signs of fatigue.[facility] Work Phone: History of Present illness Narrative* Pt. with good tolerance with TE this date, increased reps with IR/ER IASTM to the right scapula which patient has tightness present. Pt. given cues with prone TE. * Response to treatment: decreased pain. * Patient was able to complete today's treatment with some difficulty. [facility] Work Phone: History of Present illness NarrativePatient was identified by name and date. IASTM/STM completed to reduce soft tissue restrictions at R scap musculature. Physical therapist (DT) consulted for DN. After manual she reported decreased pain and tightness. This session able to progress stability exercises with signs of fatigue only.[facility] Work Phone: History of Present illness NarrativePatient was identified by name and date. More localized region of restrictions which were addressed with cupping/IASTM/STM. She was able to progress CKC strengthening and added quadruped exercises and modified planks with signs of fatigue only. Increased weight during prone scap stability exercises without c/o.[facility] Work Phone: Hisriuq of Present illness Narrative* Patient with tightness [...] and improved knowledge and understanding of condition. [facility] Work Phone: Hisqpgt of Present illness Narrative* Patient identity confirmed today with name/. see goals; good ROM and strength gains; still C/O reduced crepitus with mildly reduced max sx levels; ongoing HEP reviewed and updated today. * Response to treatment: improved flexibility, improved tissue mobility and improved knowledge and understanding of condition. [facility] Work Phone: history of Present illness Narrative* Patient identity confirmed today with name/. see goals; good ROM and strength gains; still C/O reduced crepitus with mildly reduced max sx levels; ongoing HEP reviewed and updated today. * Response to treatment: improved flexibility, improved tissue mobility and improved knowledge and understanding of condition. [facility] Work Phone: History of Present illness Narrative* [...] and improved knowledge and understanding of condition. [facility] Work Phone: History of Present illness NarrativePatient was identified by name and date. Today noted very localized region of muscle tightness at incision. Consulted physical therapist (DT) for DN to address. Progressed CKC strengthening andprone B/L scap exercises and noted quick fatigue. This session demo'd planks vs modified plank without c/o.[facility] Work Phone: History of Present illness NarrativePatient identified by date of and name. She is able to perform planks in quadruped with notedfatigue. Most challenged with T band ER/IR in small ROM. Completed all stability exercises without c/o. Anita REAA. All clinical decision making and treatment directly supervised by Cherise Powers DIRECTOR INTELLIGENCE ANALYSIS PROGRAMS [id number].[facility] Work Phone: History of Present illness NarrativePatient was identified by name and date. Consulted physical therapist (DT)for DN to address spasm more localized along R medial border of scap and UT. After DN she was able to complete all stability and UE PREs without c/o.[facility] Work Phone: History of Present illness Narrative* Lexie Nguyen APRN-CAR OILER - 06/05/2023 1:20 PM EDT Subjective Patient [...] Follow [facility] as [facility] Work [facility]: Reason for visit Narrative* Initial Evaluation . S/P R bursectomy/scapulectomy. * Referred by: Dr Hoff [facility] Work Phone: Summary Purpose Family History No [...] FoundDocuments on File Type Date Recorded Patient Media Center Specialist Expl anation Advance Directives and Living Will Documents on File Type Date Recorded Patient Media Center Specialist Expl anation Advance Directives and Living Will History of Present Illness * Guillermo Pineda MD - 10/13/2019 10:40 AM EST Procedures ELECTROMYOGRAPHY (Nerve conduction/EMG) Report [facility]rology [place], [place] Brief History: Patient with 1-1/2-year of [...] [facility] [place] [place] [phone] Nota bene: Portions of this chart was created using [employer] voice recognition software. Occasional wrong-word or sound-like [...] CT chest wo IV contrast Lexie Nguyen, WORK ADJUSTMENT INSTRUCTOR-CAR OILER [address] [place] [address] Referral ID Status Reason Start Date Expiration Date Visits Requested Visits Authorized [id number] Authorized Perform Procedure 02/21/2023 08/20/2023 1 1 Specialty Diagnoses / Procedures Referred By Contac t Referred To Contact Radiology Diagnoses Chronic neck pain Procedures XR cervical spine complete 4-5 views Lexie Nguyen, TESSIE-CAR OILER [address] [place] [address] Referral ID Status Reason Start Date Expiration Date Visits Requested Visits Authorized [id number] Authorized Perform Procedure 02/21/2023 08/20/2023 1 1 Specialty Diagnoses / Procedures Referred By Contac t Referred To Contact Radiology Diagnoses Neck swelling Procedures US head neck soft tissue Lexie Nguyen, WORK ADJUSTMENT INSTRUCTOR-CAR OILER [address] [place] [address] Referral ID Status Reason Start Date Expiration Date Visits Requested Visits Authorized [id number] Authorized Perform Procedure 02/21/2023 08/20/2023 1 1 Additional Source Comments INFORMATION SOURCE (unrecogn ized section and content) DATE CREATED AUTHOR AUTHOR'S ORGANIZ ATION 02/18/2021 [facility] DATE CREATED AUTHOR AUTHOR'S ORGANIZ ATION 05/21/2021 [facility] DATE CREATED AUTHOR AUTHOR'S ORGANIZ ATION 03/04/2022 [facility] DATE CREATED AUTHOR AUTHOR'S ORGANIZ ATION 12/03/2022 [facility] DATE CREATED AUTHOR AUTHOR'S ORGANIZ ATION 12/04/2022 [facility] DATE CREATED AUTHOR AUTHOR'S ORGANIZ ATION 04/07/2023 [facility] DATE CREATED AUTHOR AUTHOR'S ORGANIZ ATION 06/07/2023 [facility] DATE CREATED AUTHOR AUTHOR'S ORGANIZ ATION 07/18/2023 [facility] Reason for Visit (unrecogniz ed section and [...] Reason Comments Follow-up DISCUSS LABS DONE AT [facility] IN [place] AND [place] RT SIDE ON NECK Reason Comments Abdominal Cramping 4 days Diarrhea X 3 days associated with a fever Reason Comments Diarrhea Works at [employer] nguyen has been confirmed cases of C-Diff, pt has had diarrhea x 1 week. Care Teams (unrecognized sec tion and content) Glycerin Supervisor Relationship Specialty Start Date End Date Seb Wild January, CAR OILER [address] [place] [address] PCP - General Nurse Practitioner 10/03/19 Glycerin Supervisor Relationship Specialty Start Date End Date Seb Wild [address] [facility] [address] PCP - General Family Medicine 06/14/22 Glycerin Supervisor Relationship Specialty Start Date End Date Seb Wild, WORK ADJUSTMENT INSTRUCTOR.CAR OILER [address] [place] [address] PCP - General Family Medicine 06/14/22 Glycerin Supervisor Relationship Specialty Start Date End Date Beverley Phillip, WORK ADJUSTMENT INSTRUCTOR-CAR OILER [address] [address] PCP - MMO ACO PCP 05/27/22 Lexie Nguyen, WORK ADJUSTMENT INSTRUCTOR-CAR OILER [address] [place] [address] PCP - General Internal Medicine 01/10/23 Glycerin Supervisor Relationship Specialty Start Date End Date Lexie Nguyen, WORK ADJUSTMENT INSTRUCTOR-CAR OILER [address] [place] [address] PCP - General Internal Medicine 01/10/23 Lexie Nguyen, WORK ADJUSTMENT INSTRUCTOR-CAR OILER [address] [place] [address] PCP - MMO ACO PCP 01/25/23 Glycerin Supervisor Relationship Specialty Start Date End Date Lexie Nguyen, WORK ADJUSTMENT INSTRUCTOR-CAR OILER [address] [place] [address] PCP - General Internal Medicine 01/10/23 Lexie Nguyen, WORK ADJUSTMENT INSTRUCTOR-CAR OILER [address] [place] [address] [phone] (work) PCP - MMO ACO PCP 01/25/23 Source Comments (unrecognize d section and content) In the event this informatio n is protected by the Federal Confidentiality of Alcohol and Drug Abuse Patient Records regulations: The Federal rules restrict any use of the information to criminally investigate or prosecute any alcohol or drug abuse patient.[facility] the event this information is protected by the Federal Confidentiality of Alcohol and Drug Abuse Patient Records regulations: The Federal rules restrict any use of the information to criminally investigate or prosecute any alcohol or drug abuse patient.[facility] the event this information is protected by the Federal Confidentiality of Alcohol and Drug Abuse Patient Records regulations: The Federal rules restrict any use of the information to criminally investigate or prosecute any alcohol or drug abuse patient.[facility] <item> Privacy Markings (unrecogniz ed section [...] BE BASED ON THE PRIMARY CLINICAL RECORDS. [facility] [employer] [facility]. provides no warranty or guarantee of the accuracy or completeness of information in this document.
== END | disposition home or self-care (01) ==
LOC: LABSPEC 13:32
PROVIDERS: PCP Nurse Practitioner Family; Referring Provider Registered Nurse; Visit Provider Registered Nurse
DX: O23.40 Unspecified infection of urinary tract in pregnancy, unspecified trimester (principal); Z3A.00 Weeks of gestation of pregnancy not specified
CPT/HCPCS: 87077; 87086; 87088; 87186

== ENCOUNTER 2023-09-26 15:43 | Emergency (ER) | payer OTHER, SELFPAY ==
[2023-09-26 15:45] VITALS: BP 145/95; PULSE 117; RESP 20; TEMP 36.8; O2SAT 100; BMI 28.8
--- NOTE | 2023-09-26 16:36 | US_ITS ---
EXAM: US , TRANSVAGINAL CLINICAL INDICATION: 1st trimester preg w/ vaginal bleeding TECHNIQUE: Real-time transvaginal obstetrical ultrasound of the maternal pelvis and a first trimester with image documentation. Transvaginal imaging was used for better evaluation of the fetus and adnexa. COMPARISON: No relevant prior studies available. FINDINGS: GESTATION: Adjacent to the gestational sac there is a hypoechoic complex appearing fluid collection that measures 3.2 x 2.4 x 1.8 cm. There is an intrauterine gestation with a crown-rump length of 7.1 cm age 13 weeks 2 days. heart rate is 171 bpm. PLACENTA/AMNIOTIC FLUID: Placenta is posterior. UTERUS/CERVIX: Uterus measures 15.4 x 8.5 x 8.9 cm. The patient has a septate uterus. No myometrial mass. OVARIES: The right ovary measures 3.2 x 3.5 x 3.1 cm. There is a 2.6 x 2.6 x 2.4 cm cyst in the right ovary. The left ovary measures 2.7 x 4.0 x 1.8 cm. No mass. FREE FLUID: No free fluid. US/Transvaginal w/Preg US IMPRESSION: 1. Intrauterine gestation with an average ultrasound age of 13 weeks 2 days and ultrasound estimated due date of 03/31/2024. There is now a hypoechoic area in the uterus adjacent to the gestational sac which may represent a subchorionic hemorrhage. 2. Septate uterus with a gestation within the left endometrium. Electronically Signed: Timothy Dc MD at 18:15 EST ,
--- NOTE | 2023-09-26 16:37 | ED.VIS.FEGU ---
HPI HPI - Female History of Present Illness Chief Complaint: Vag Bld, Preg Informant: patient and spouse/S.O. Pain Pain: Positive for Pelvic Pain Onset: Today Timing: Intermittent Quality: Positive for Cramping Current Severity: Mild Maximum Severity: Mild Bleeding Issue: Positive for Vaginal bleeding; Negative for Passing tissue Onset: Today Current Severity: Mild Associated Symptoms Associated Symptoms: Negative for Dysuria, Frequency or Urgency Test: Positive P: 0 Ab: 0 Narrative Narrative: 27-year-old female , Ab0. Currently is 12 weeks and 6 days . Severity is blood type a positive. Several weeks ago she had vaginal bleeding with the . She was diagnosed with a threatened miscarriage. She is currently seeing [place] DIRECTOR OF TEACHER EDUCATION. Today had vaginal bleeding about 2 pads in the last 2 to 3 hours. Was diagnosed with COVID yesterday at home and also has a UTI which she is getting ready to start antibiotics for. She has had a recent quant, blood type and ultrasound. Prior similar symptoms: Yes Recent Illness/Hospitalization: No PFSH PFSH Medical History Snapping scapula syndrome Home Medications albuterol 90 mcg/actuation aerosol inhaler mcg inhalation PRN 08/10/23 [History Last Taken Unknown] ctjdqmwo-dpt-I. coag-B. subtilis-inulin 1 billion cell-1 gram chew tab (Culturelle Probiotic-Multivit) tab PO 08/10/23 [History Last Taken Unknown] multivitamin no.47-iron fum 27 mg-folate no.1 1 mg-dha 300 mg capsule (PNV-DHA) cap PO 08/10/23 [History Last Taken Unknown] ampicillin 500 mg capsule 500 mg PO Q8H 5 days #15 caps 09/26/23 [Rx Last Taken Unknown] Allergy/AdvReac Type Severity Reaction Status Date / Time No Known Allergies Allergy Verified 09/26/23 15:45 Family History Grandmother Breast cancer, Onset Age: 70 Maternal Cancer, Onset Age: 50 Maternal- Uterine Father Hypertension Surgical History History of shoulder surgery History of tonsillectomy [place] teeth extracted Social History adopted: No household members: spouse current occupational status: employed 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 [employer] pets and animals: Yes (outside-) pets and animals: cat(s) history of recent travel: Yes ([place]) out of country: Yes sexually active: Yes Smoking Status: Never smoker alcohol intake: never substance use type: does not use well-balanced diet: daily or most days caffeine: No eating out: 1-3 times/week during the past year weight has: decreased > 10 lbs what type of physical activity do you participate in: none erlinda/gnosticist: Shinto seatbelt use: always do you feel safe at home: Yes 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 Review of Systems ROS Unobtainable: Denies due to encephalopathy Constitutional Constitutional ED: Denies chills or fever(s) Eyes Eyes: Denies blurry vision ENT ENT ED: Denies ear pain Cardiovascular Cardiovascular: Denies chest pain Respiratory/Chest Respiratory/Chest: Reports cough; Denies dyspnea Gastrointestinal Gastrointestinal: Denies abdominal pain Genitourinary Genitourinary ED: Denies dysuria or hematuria Musculoskeletal Musculoskeletal: Denies arthralgias Integumentary Denies abscess Neurologic Neurologic: Denies headache(s) Psychiatric Psychiatric: Denies anxiety Endocrine Endocrinology: Denies heat intolerance Hematologic/Lymphatic Hematologic/Lymphatic: Denies easy bleeding, easy bruising or lymphadenopathy Allergic/Immunologic Allergic/Immunologic ED: Denies mouth swelling, tongue swelling or urticaria EXAM Physical Exam Narrative Exam Narrative: Well-appearing 19-year-old female. Vital signs stable afebrile. Initial blood pressure 145/95. H EENT exam unremarkable. Lungs clear to auscultation bilaterally. Heart tachycardic rate about 115 no murmur. Chest wall and ribs nontender. Abdomen soft nondistended normal bowel sounds no peritoneal signs. Gravid uterus consistent with dates. Moving all 4 extremities. Calves nontender no edema no cords. Neurologically she is awake and alert no focal motor deficits. Const Vital Signs: 09/26/23 15:45 Temperature 98.3 F Temperature Source Temporal Pulse Rate 117 H Respiratory Rate 20 H Blood Pressure 145/95 H Blood Pressure Mean 111 Pulse Ox 100 Oxygen Delivery Method Room Air Positive well nourished and well developed; Negative for cachectic, contractures or unkempt General Appearance ED: well developed and NAD; Negative for unkempt, cachectic, contractures or pallor Nutritional Appearance: Negative for cachectic HEENT Reports moist mucous membranes Negative for trauma or tenderness Eyes PERRL and EOMs intact bilaterally General Eye ED: Negative for pale conjunctiva, scleral icterus or other Neck no lymphadenopathy, supple and no JVD General: Negative for other Thyroid: Negative for tender Lymph Lymphatic: Negative for other Chest Wall inspection of chest normal and palpation of chest normal Resp normal respiratory effort and clear to auscultation bilaterally Effort and Inspection: Negative for pain with movement Auscultation: Negative for rales, rhonchi, wheezes or diminished lung sounds Cardio regular rhythm, S1 normal heart sound, no murmurs and no JVD; Negative for regular rate Rate: tachycardic Rhythm: Negative for abnormal rhythm GI normal to inspection, nondistended, normoactive bowel sounds, soft to palpation, non-tender, non-distended and no masses Auscultation: normoactive bowel sounds Palpation: Negative for tender, guarding, rigid, hepatomegaly, splenomegaly or mass Back/Spine no CVA tenderness General Back: Negative for CVA tenderness Cervical Spine: Negative for cervical spine tenderness Thoracic Spine / Upper Back: Negative for thoracic spinal tenderness Lumbar Spine / Lower Back: Negative for lumbar spinal tenderness Sacrum: Negative for other Extremity normal to inspection and full ROM General Extremety ED: Negative for edema or tenderness General Extremity: Negative for edema Neuro oriented x3 and CN's II-XII intact bilaterally Sensorium / Orientation: alert, oriented to person, oriented to place and oriented to time; Negative for confused, lethargic or stuporous Motor Exam: strength 5/5 throughout Psych mental status grossly normal Appearance: Negative for unkempt Attitude: No agitated Speech: No other Mood & Affect: Negative for depressed, anxious or tearful Skin no rashes or lesions noted and no wounds General Skin Exam: Negative for jaundice or pallor Rashes: No rashes noted Trauma: Negative for other MDM MDM MDM Narrative Medical decision making narrative: 27-year-old female G1, P0 Ab0 currently 12 weeks 6 days with vaginal bleeding. This is the second episode she has had a recent ultrasound showing a single live IUP. She is also blood type a positive. She had recurrent bleeding and cramping today. Another ultrasound be obtained. Patient doing well at 6:30 PM. We went over all of her test results. I spoke to her DIRECTOR OF TEACHER EDUCATION Dr. Stephenson utilization coordinator. They will follow her up in the office. Tylenol for pain. No heavy lifting. Pelvic rest. Plenty of fluids. History & Record Review Discussion w/independent historian: Patient and Family Additional record(s) reviewed:: Prior inpatient record, Prior outpatient record, Prior ED visit and Prior labs Radiography Diagnostic Testing: Clinical Impression(s) from Imaging Studies Obstetrics Ultrasound 09/26/23 16:36 IMPRESSION: 1. Intrauterine gestation with an average ultrasound age of 13 weeks 2 days and ultrasound estimated due date of 03/31/2024. There is now a hypoechoic area in the uterus adjacent to the gestational sac which may represent a subchorionic hemorrhage. 2. Septate uterus with a gestation within the left endometrium. Electronically Signed: Timothy Dc MD at 18:15 EST , Discharge Plan Triage Chief Complaint: Vag Bld, Preg ED Provider: Jayjay Orellana Dx/Rx/DC Orders Clinical Impression: Threatened miscarriage, Vaginal bleeding, Septate uterus Instructions: Miscarriage Threatened Prescriptions: No Action PNV-DHA 27 mg iron-1 mg -300 mg capsule PO Culturelle Probiotic-Multivit 1 billion cell- 1 gram tablet,chewable PO albuterol 90 mcg/actuation aerosol inhalation PRN ampicillin 500 mg capsule 500 mg PO Q8H 5 Days Qty: 15 0RF Primary Care Provider: Lexie Khan Referrals: Carrie Prieto DO [Med Staff - Active Staff] - As soon as possible Lexie Khan, RESEARCH SUBJECT-C [Primary Care Provider] - Activity Restrictions/Additional Instructions: Tylenol for pain. Plenty of fluids and rest. Pelvic rest. No heavy lifting. No intercourse. Call and follow-up with your DIRECTOR OF TEACHER EDUCATION's office. Disposition Disposition: Home, Self Care
[2023-09-26 18:49] VITALS: BP 134/77; PULSE 62; RESP 15; O2SAT 98
== END 2023-09-26 18:50 | disposition home or self-care (01) ==
PROVIDERS: Emergency Provider Emergency Medicine; PCP Nurse Practitioner Family; Visit Provider Emergency Medicine
DX: O20.0 Threatened abortion (principal); Q51.28 Other and unspecified doubling of uterus; R10.2 Pelvic and perineal pain; O99.891 Other specified diseases and conditions complicating pregnancy; Z3A.12 12 weeks gestation of pregnancy; Z86.16 Personal history of COVID-19; O23.41 Unspecified infection of urinary tract in pregnancy, first trimester
CPT/HCPCS: 76817; 99282

== ENCOUNTER 2024-03-17 10:13 | Inpatient (IN) | payer OTHER, SELFPAY ==
--- NOTE | 2024-03-04 15:02 | PCM.HP.BLA ---
History and Physical Date of Admission: 03/17/24 HPI: The patient is a 28 year old female presenting for pre-operative visit. She is scheduled for , for breech, 38 weeks, IUGR on 03/17/24. Procedure discussed along with risks, benefits and complications. Other alternatives discussed for management. Consent form signed? Yes. PAST MEDICAL HISTORY PAST MEDICAL HISTORY Diagnosis Date ? Asthma ? Asthma due to seasonal allergies ? Breast disorder Fibrocystic Breast ? Uterine abnormality in Septate Uterus PAST SURGICAL HISTORY PAST SURGICAL HISTORY Procedure Laterality Date ? SHOULDER SURGERY HX Right CURRENT MEDICATIONS Current Outpatient Medications Medication Sig Dispense Refill ? blood sugar diagnostic test strip Use as directed to check glucose levels up to seven times daily. 200 Strip 8 ? Lancets Use as directed to check glucose levels up to seven times daily. 200 Each 8 ? alcohol swabs (ALCOHOL PREP PADS) Use as directed to check glucose levels up to seven times daily. 200 Each 8 ? PNV no.95/ferrous fum/folic ac ( ORAL) Take by mouth. ? ALBUTEROL INHALATION Inhale as instructed. ? acyclovir (ZOVIRAX) 400 mg tablet Take 1 tablet by mouth three times a day. Until delivery. 28 tablet 1 ? Cetirizine (ZYRTEC) 10 mg cap Take by mouth as needed. No current facility-administered medications for this visit. ALLERGIES: Patient has no known allergies. PERSONAL HISTORY: SOCIAL HISTORY Social History Tobacco Use ? Smoking status: Never ? Smokeless tobacco: Never Vaping Use ? Vaping Use: Never used Substance Use Topics ? Alcohol use: Not Currently ? Drug use: Never FAMILY HISTORY: FAMILY HISTORY FAMILY HISTORY Problem Relation Age of Onset ? No Known Problems Mother ? Hypertension Father ? No Known Problems Brother ? Breast Cancer Maternal Grandmother ? Uterine Cancer Maternal Grandmother ? Heart Maternal Grandmother ? Colon Cancer Maternal Grandfather ? No Known Problems Paternal Grandmother ? No Known Problems Paternal Grandfather REVIEW OF SYMPTOMS: GENERAL: denies fevers or chills ENDOCRINOLOGY: has not been on steroids Cardiology : denies palpitations or chest pain Respiratory: denies SOB or cough Hematology: denies history of prolonged bleeding or easy bruising or VTE Allergy: Denies history of personal or family history of allergy to anesthesia PHYSICAL EXAMINATION: VITALS: Blood pressure 116/72, last menstrual period 06/16/2023. GENERAL: The patient is well nourished, well hydrated in no acute distress. , The patient is oriented to time, place, and person. NECK: Supple. No lynphadenopathy, normal thyroid, no thyromegaly. LUNGS: Clear to auscultation bilaterally. no wheezes, rhonchi or rales HEART: Regular rate and rhythm, Normal heart sounds, and No murmurs or gallops abd- soft, nontender, gravid ext- 2+ edema IMPRESSION: Estimated Date of Delivery: 03/31/24 G1 suspected IUGR< 5 %, ana paula breech PLAN: The risks/benefits/alternatives and personal involved for the planned delivery were reviewed with the patient. Her questions were answered to her satisfaction and she desires to proceed. Consent was signed. I reviewed with her postop instructions and expectations. I have reviewed and updated past medical and surgical history, medications and allergies Assessment & Plan Assessment/Plan (1) IUGR (intrauterine growth restriction) affecting care of mother: (2) Supervision of high-risk : QUALIFIERS: Trimester: first trimester Qualified Code(s): O09.91 - Supervision of high risk , unspecified, first trimester (3) Ana Paula breech presentation:
[2024-03-17] VITALS (17 sets, daily range): BP systolic 107–128; BP diastolic 63–81; PULSE 74–99; RESP 12–18; TEMP 36.1–37.6; O2SAT 18–99; BMI 36.1
[2024-03-17] MEDS: Lactated Ringers 1,000 ML 999 ML IV (10:00)
[2024-03-17 10:44] LABS: Absolute Lymphocyte Count 1.47 X10^3/uL (0.83-4.51); Absolute Neutrophil Count 7.3 X10^3/uL (2.0-7.7); Basophil# 0.02 X10^3/uL; Basophil% 0.2 % (0-1); Eosinophil# 0.04 X10^3/uL; Eosinophils% 0.4 % (0-5); Hematocrit 38.4 % (37-47); Hemoglobin 13.4 g/dL (12.0-15.0); Lymphocyte # 1.47 X10^3/ul (0.83-4.51); Lymphocyte % 15.2 % (19-41); Mean Corp Hgb Conc 34.9 g/dL (32-36); Mean Corpuscular Volume 88.9 fL (81-99); Mean Platelet Vol. 10.5 fl (6.2-12.0); Monocyte# 0.71 X10^3/uL; Monocyte% 7.3 % (0-10); NRBC Flagged by Analyzer 0 % (0-5); Neutrophil # 7.33 X10^3/uL (2.7-7.7); Platelet Count 203 K/mm3 (150-450); RBC Distribution Width CV 12.1 % (11.6-14.6); RBC Distribution Width SD 38.9 fl (35.1-43.9); Red Blood Count 4.32 M/mm3 (4.2-5.4); White Blood Count 9.7 K/mm3 (4.4-11.0)
[2024-03-17 10:48] LABS: Bedside Glucose 82 mg/dL (74-106)
[2024-03-17] MEDS: Lactated Ringers 1,000 ML 150 ML IV (11:00)
[2024-03-17] MEDS: Acetaminophen 500 MG Tablet 1000 MG PO ×3 (11:25→23:38)
[2024-03-17] MEDS: Sodium Citrate/Citric Acid 30 ML UDC PO (11:27)
[2024-03-17 11:37] LABS: Syphilis Antibodies Non-reactive
[2024-03-17] MEDS: Cefazolin 2 GM in 0.9% Normal Saline (100mL Bag) 100 ML IV (12:14)
--- NOTE | 2024-03-17 12:29 | OP.PCM_ITS ---
Assessment & Plan (1) Ana Paula breech presentation: (2) IUGR (intrauterine growth restriction) affecting care of mother: (3) Uterine anomaly: COMMENT: unclear if fibroid/septum- recommend MFM scan- needs fu with TVUS (4) Supervision of high-risk : QUALIFIERS: Trimester: first trimester Qualified Code(s): O09.91 - Supervision of high risk , unspecified, first trimester COMMENT: PRR, , RONNIE 04/02/24, boy, Oriental Orthodox (5) 37 weeks gestation of : Maternal Data Information RONNIE Calculator Estimated Delivery Date Method Current WG Current Estimate 04/02/24 Ultrasound #1 37w 5d Other Estimates 03/24/24 LMP (Certain) 39w 0d Final RONNIE: 03/31/24 Gestational age: 37 3/7 Details Operative Information Date of Procedure: 03/17/24 Pre-Operative Diagnosis: 37 weeks, ana paula breech, IUGR Post-Operative Diagnosis: same Classification: Scheduled Procedure 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 She was prepped and draped in the dorsal supine position with a leftward tilt. A Pfannenstiel skin incision was made approximately 2 cm above the symphysis pubis and carried through to underlying layer fascia with the scalpel. The fascia was incised incised in the midline and extended laterally with the Sweet scissors. The fascia was dissected off the rectus muscles with blunt and sharp dissection. The rectus muscles were in the midline and the peritoneum was entered bluntly. The peritoneal incision was stretched and the bladder blade was placed. The uterine incision was made in a low transverse fashion with the scalpel and extended superiorly and inferiorly with blunt dissection. The amniotic membranes were ruptured bluntly and clear amniotic fluid returned. The buttocks were brought out through the incision and the legs were swept out individually. Were swept out individually the arms were then swept out. The head was then delivered in the flexed position with gentle fundal pressure and gentle traction on the maxilla. The mouth and nares were bulb suctioned. The cord was clamped and cut as the infant was stimulated. Cord clamping was only delayed about 30 seconds. The was handed off to the waiting nursing staff. The placenta was delivered with fundal massage and gentle traction in the standard fashion. The uterus was exteriorized and cleared of all clots and debris. The cervix was dilated with a ring forcep. The uterine incision was closed with #1 Vicryl in a running locked fashion. The incision was examined and was found to be hemostatic. The uterus was placed back into the peritoneal cavity and hemostasis was again confirmed. The rectus muscles were examined and any bleeding was Bovie cauterized. The parietal peritoneum and rectus muscles were closed en bloc with an 0 Vicryl running suture. The surgical teams outer gloves were then changed. The rectus fascia was examined and any bleeding was Bovie cauterized and the rectus fascia was closed with 1 Vicryl suture in a running standard fashion. The subcutaneous tissue was examining and any bleeding was Bovie cauterized. The subcutaneous tissue was reapproximated with 3-0 Vicryl suture. The skin was closed in a subcuticular fashion by the DRYWALL APPLICATION SUPERVISOR with me present in the labor and delivery suite. I performed the remainder of the procedure with assistance. All sponge, lap, and needle counts were correct. The patient was taken to her room for recovery in a stable condition. Presentation: Positive for Ana Paula Breech Amniotic Membrane Rupture Type: Artificial Amniotic Fluid Description: Clear Placental Delivery Description: Manual Removal Placenta Disposition: [facility] Specimen(s) Sent to Pathology: placenta Cord Vessel Description: 3 Vessels Cord Entanglement: None Cord Gases: ABG and VBG Infant A Gender: Male (Kam Nielson) (1 minute): 9 (5 minute): 9 Delayed Cord Clamping: No Complications Complications: none Admit VTE Documentation VTE Present on Admission: No VTE Mechan Device Prophylaxis: SCD's VTE Pharm Prophylaxis Ordered: Yes
--- NOTE | 2024-03-17 12:30 | PLAC_PTH ---
PATIENT: ABDIEL CARRANZA LOC: [facility] U#:[id number] AGE/SX: 28/F ROOM: WP007 RE03/17/[address]: Dr. Venita Zacarias MD : 1995 BED: 1 DIS: 03/19/2024 SPEC #: [id number] RECD: 03/17/24 13:55 STATUS: DIXIE REMarsha #: [id number] ROSE MARY: 03/17/24 12:[address]: Venita Zacarias DEPT: SURGICAL PATHOLOGY RECD BY: Ping Gray ENTERED: 03/18/24 09:52 SP TYPE: PLACENTA OTHR DR: Lexie Khan, WAREHOUSE TEAM LEADER-C Tissues: Placenta, NOS Procedures: Surgery Specimen Level V HEADER OPERATION: Primary section PRE-OP DIAGNOSIS: Intrauterine growth restriction TISSUE SUBMITTED: Placenta MICROSCOPIC DIAGNOSIS Placenta: Placental disc - third trimester placenta (361 gm). - Focal areas of intraparenchymal hemorrhage, infarction with calcifications (5.0 and 6.0cm in greatest dimension). - A benign mucoid cyst (4.0cm in greatest dimension). - Increased intervillous and perivillous fibrin deposition. Membranes - no pathologic diagnosis. Umbilical cord - three blood vessels and no pathologic diagnosis. SJ: 03/19/2024 MICROSCOPIC DESCRIPTION Slides are reviewed. GROSS DESCRIPTION SPECIMEN: PLACENTA / CLINICAL INFORMATION: A. Weight: 2.445 kg B. Gestational Age: 37 weeks C. Sex: Male PLACENTAL WEIGHT (POST FIXATION): 361 gm PLACENTAL DIMENSIONS: 16.0 x 15.0 x 4.0cm PLACENTAL SHAPE: Usual ovoid PLACENTAL WEIGHT FOR GESTATIONAL AGE: Within 10-99th percentile MEMBRANES - Present A. Insertion: Marginal B. Site of rupture from edge: at the margin of placental disc C. Color of membrane: Bermudez-livingston D. Abnormalities: None UMBILICAL CORD - Present A. Color: Bermudez-livingston B. Insertion: Central C. Length: 32.0 cm D. Diameter: 1.0 cm E. Number of vessels: Three F. Abnormalities: Increased spiraling is noted. PLACENTAL DISC - Present A. Color of surface: Bermudez-livingston B. surface abnormalities: None C. Maternal cotyledons: Body of the placenta appears to be partly disrupted, however appears to be complete. D. Attached retro placental clot: No clot E. Cut surface: Dark red and spongy F. Lesions: Sections reveal a bermudez indurated lesion in the peripheral portion of the placenta measuring 6.0cm in greatest dimensions. Placenta in this portion measures only 0.5cm in thickness. A second bermudez indurated lesion is also noted in the peripheral portion of the placenta measuring 5.0cm in greatest dimensions. A multiloculated cystic lesion is also noted measuring 4.0 x 2.5 x 2.0cm. It is filled with mucoid material. G. Separate clot: Absent SECTIONS SUBMITTED: (6 cassettes) 1. Membrane roll 2. Cord, maternal end, larger bermudez indurated area 3. Cord, end 4. Placental disc, and maternal surfaces, smaller bermudez indurated area 5. Placental disc, and maternal surfaces, cystic lesion 6. Placental disc, and maternal surfaces SJ/mr 03/18/2024 TC:5 CPT: 93523
[2024-03-17] MEDS: Oxytocin 15 Units/NS 250ml 15 UNITS/250 ML IV.SOLN 83 UNITS IV (13:20)
[2024-03-17] MEDS: 0.9% Saline Lock 10 ML Syringe IV ×3 (13:56→20:01)
[2024-03-17] MEDS: Ketorolac 30 MG/ML Syringe IV ×2 (13:56→19:57)
[2024-03-17 14:09] LABS: Bedside Glucose 77 mg/dL (74-106)
[2024-03-17] MEDS: Lactated Ringers 1,000 ML 100 ML IV (17:19)
[2024-03-17] MEDS: Ondansetron 4 MG/2 ML Vial IV (20:01)
[2024-03-17] MEDS: Enoxaparin 40 MG/0.4 ML Syringe SC (23:39)
[2024-03-18 00:40] VITALS: PULSE 88; RESP 16; O2SAT 97
[2024-03-18] MEDS: 0.9% Saline Lock 10 ML Syringe IV ×3 (02:36→08:38)
[2024-03-18] MEDS: Ketorolac 30 MG/ML Syringe IV ×2 (02:36→08:38)
[2024-03-18 03:45] VITALS: BP 110/74; PULSE 92; RESP 16; TEMP 36.6; O2SAT 97
[2024-03-18 04:43] LABS: Pathology Specimen OB SEE PATHOLOGY REPORT
[2024-03-18] MEDS: Acetaminophen 500 MG Tablet 1000 MG PO ×3 (05:47→17:53)
[2024-03-18 06:02] LABS: Hematocrit 32.9 % (37-47); Hemoglobin 11.2 g/dL (12.0-15.0); Mean Corpuscular Hgb 30.6 pg (27.0-32.0); Mean Corpuscular Volume 89.9 fL (81-99); Mean Platelet Vol. 10.9 fl (6.2-12.0); Platelet Count 170 K/mm3 (150-450); RBC Distribution Width CV 12.4 % (11.6-14.6); RBC Distribution Width SD 40.7 fl (35.1-43.9); Red Blood Count 3.66 M/mm3 (4.2-5.4); White Blood Count 10.9 K/mm3 (4.4-11.0)
[2024-03-18 06:40] LABS: Bedside Glucose 102 mg/dL (74-106)
[2024-03-18 06:40] LABS: Bedside Glucose 68 mg/dL (74-106)
[2024-03-18 07:49] VITALS: BP 117/78; PULSE 98; RESP 16; TEMP 37.4; O2SAT 96
--- NOTE | 2024-03-18 08:26 | PCM.PN.OB ---
Subjective Subjective Denies complaints Objective Data Objective Data Vital Signs: Vital Signs Temp Pulse Resp BP Pulse Ox O2 Del Method 99.3 F H 98 16 117/78 96 Room Air 03/18/24 07:49 03/18/24 07:49 03/18/24 07:49 03/18/24 07:49 03/18/24 07:49 03/18/24 07:49 Oxygen Delivery Method Room Air Weight: 190 lb 14.725 oz Body Mass Index (BMI) 36.1 Intake & Output: Intake and Output for Last 24 Hours 03/16/24 03/17/24 03/18/24 23:59 23:59 23:59 Intake Total 1527.2 / 1527.2 1000 / 1000 Output Total 2100 / 2100 1200 / 1200 Balance -572.8 / -572.8 -200 / -200 Lab / Micro Data 03/18/24 05:40 Labs: Laboratory Results - last 24 hr 03/17/24 10:00: WBC 9.7, RBC 4.32, Hgb 13.4, Hct 38.4, MCV 88.9, MCH 31.0, MCHC 34.9, RDW Std Deviation 38.9, RDW Coeff of [place] 12.1, Plt Count 203, MPV 10.5, Immature Gran % (Auto) 0.900, Neut % (Auto) 76.0 H, Lymph % (Auto) 15.2 L, [place] % (Auto) 7.3, Eos % (Auto) 0.4, Baso % (Auto) 0.2, Absolute Neuts (auto) 7.3, Absolute Lymphs (auto) 1.47, Nucleated RBC % 0, Syphilis Total Ab Non-reactive, Blood Type O POSITIVE, Antibody Screen NEGATIVE 03/17/24 10:30: POC Glucose 82 03/17/24 13:48: POC Glucose 77 03/18/24 05:40: WBC 10.9, RBC 3.66 L, Hgb 11.2 L, Hct 32.9 L, MCV 89.9, MCH 30.6, MCHC 34.0, RDW Std Deviation 40.7, RDW Coeff of [place] 12.4, Plt Count 170, MPV 10.9 03/18/24 05:41: POC Glucose 68 L 03/18/24 06:21: POC Glucose 102 Physical Exam Const alert, oriented x3 and no apparent distress HEENT normocephalic GI soft to palpation, non-tender and non-distended GI Narrative: fundus firm, mid & below umbilicus Incision - bandage c/d/i Extremity normal to inspection and no calf tenderness Assessment & Plan (1) Delivery by section: COMMENT: POD#1 PLAN: Heme - HDS, CBC reviewed ID - AF, no signs infection GI/ - no issues Routine care
[2024-03-18] MEDS: Senna/Docusate Sodium 1 Tablet PO (11:23)
[2024-03-18 13:39] VITALS: BP 123/78; PULSE 105; RESP 16; TEMP 36.5; O2SAT 96
[2024-03-18] MEDS: Ibuprofen 600 MG Tablet PO ×2 (15:06→20:34)
[2024-03-18 20:35] VITALS: BP 124/82; PULSE 81; RESP 16; TEMP 36.7; O2SAT 97
[2024-03-19] MEDS: Acetaminophen 500 MG Tablet 1000 MG PO ×3 (00:25→11:50)
[2024-03-19] MEDS: Enoxaparin 40 MG/0.4 ML Syringe SC (00:25)
[2024-03-19] MEDS: SimETHICONE 80 MG Chewable Tablet PO (00:32)
[2024-03-19] MEDS: Ibuprofen 600 MG Tablet PO ×2 (01:54→08:38)
[2024-03-19 01:56] VITALS: BP 110/77; PULSE 89; RESP 16; TEMP 36.8; O2SAT 97
[2024-03-19] MEDS: Senna/Docusate Sodium 1 Tablet PO (08:39)
[2024-03-19 08:40] VITALS: BP 120/80; PULSE 92; RESP 14; TEMP 37.4; O2SAT 99
--- NOTE | 2024-03-19 08:54 | PCM.DC.SUM ---
Providers Date of Admission: 03/17/24 Primary Care Physician: Lexie Khan HEALTH SERVICES INFORMATION SPECIALIST-C Reason For Visit: PRIMARY C SECTION Diagnosis Discharge Diagnosis (1) Delivery by section: Status: Acute Medications at Discharge Home Medications albuterol 90 mcg/actuation aerosol inhaler 90 mcg inhalation PRN asthma 08/10/23 multivitamin no.47-iron fum 27 mg-folate no.1 1 mg-dha 300 mg capsule (PNV-DHA) 1 cap PO 08/10/23 Hospital Course Operations - (Primary low-transverse section) Procedures None Summary of Care Provided Minutes Spent on Discharge: 18 Hospital Course: Patient was admitted on 03/17/2024 for a primary section due to ana paula breech presentation with suspected intrauterine growth restriction. Maternal- medicine recommended early term delivery. section was performed without difficulty. By postoperative day #2 she was ambulating, urinating tolerating regular diet without difficulty. was breast-feeding and doing well and she desired discharge home with routine instructions and follow-up. Physical Exam Narrative Pain well-controlled. Average lochia. Assessment and plan postoperative day #2 status post primary section. Patient is doing well. Discharge home with routine instructions and follow-up. Const alert General Appearance: cooperative GI GI Narrative: soft, moderate distention, fundus firm, appropriately tender. Abdominal bandage clean dry and intact Weight / BMI Weight Weight: 86.6 kg Body Mass Index (BMI) 36.1 ABG / Lab / Microbiology Data 03/18/24 05:40 D/C Instructions Discharge Diet: No restrictions May resume sexual activity in: 4-6 weeks Lifting Restrictions: 20 pounds Additional Activity Instructions: Nothing in the vagina for 4-6 weeks. You may return to work/school in 6 weeks. Call your doctor if your incision/area has: Continuous Slow Oozing, Sudden Increased Bleeding, Increased Pain/ Swelling, Increased Redness and Foul Smelling Discharge Call your doctor if you observe: Fever of 101 or Higher and Using more than 1 pad per hour (for 2 hours) Suture Line Care: Avoid Pulling/Pushing and Avoid Pinching/Bending Cleanse incision/area with: Keep Dressing Clean & Dry Please Follow Up With: Venita Zacarias MD When: Call to make an appointment for an incision check in 1-2 [phone]. You will need a post check in 6 weeks. Meaningful Use Info Meaningful Use Meaningful Use Diagnoses (Choose all that apply): None applicable Ischemic Stroke Statin Dosing Therapy Reference: STATIN DOSE THERAPY REFERENCE: * Patients > 75 years receive moderate or high dose statin therapy. * Patients 75 years or YOUNGER should receive HIGH intensity statin dose unless contraindicated. You will be required to document reason for non-treatment if statin daily dose does not meet guidelines. HIGH DOSE STATIN THERAPY DAILY Atorvastatin > than or = to 40 mg Rosuvastatin > than or = to 20 mg Amlodipine + Atorvastatin > than or = to 2.5/40 mg Ezetimibe + Simvastatin 10/80 mg Simvastatin 80mg Discharge Plan Admission Admit Date/Time: 03/17/24 10:13 Attending Provider: Venita Zacarias Primary Care Provider: Lexie Khan Discharge Orders/Prescriptions Prescriptions: No Action PNV-DHA 27 mg iron-1 mg -300 mg capsule 1 cap PO albuterol 90 mcg/actuation aerosol 90 mcg inhalation PRN (Reason: asthma) Patient Comments: used while having covid Referrals / Follow Up: Lexie Khan, HEALTH SERVICES INFORMATION SPECIALIST-C [Primary Care Provider] - Disposition Disposition (needs filled in before D/C Order can be placed): Home, Self Care
== END 2024-03-19 12:00 | disposition home or self-care (01) | DRG 788 ==
PROVIDERS: Admitting Provider Obstetrics & Gynecology; PCP Nurse Practitioner Family; Referring Provider Obstetrics & Gynecology; Visit Provider Obstetrics & Gynecology
PROC: 10D00Z1 Extraction of Products of Conception, Low, Open Approach (ICD-10-PCS; CPT 59514; principal; 2024-03-17 11:45)
DX: O32.1XX0 Maternal care for breech presentation, not applicable or unspecified (principal); O36.5930 Maternal care for other known or suspected poor fetal growth, third trimester, not applicable or unspecified; D25.9 Leiomyoma of uterus, unspecified; O34.13 Maternal care for benign tumor of corpus uteri, third trimester; O99.892 Other specified diseases and conditions complicating childbirth; Q51.28 Other and unspecified doubling of uterus; Z37.0 Single live birth; Z3A.38 38 weeks gestation of pregnancy
CPT/HCPCS: 59050; 82962; 85025; 85027; 86780; 86850; 86900; 86901; 88307; 99221; J7120; A4216; G0378; J2405